=== PATIENT | male | born 1975 | race Caucasian/White ===

== ENCOUNTER 2017-09-01 19:40 | Emergency (ER) | payer OTHER ==
[2017-09-01] MEDS ORDERED: KETOROLAC 30 MG/ML INJ ONE (21:45)
--- NOTE | 2017-09-01 21:46 | ER ---
Nurse's Notes [facility] Name: Power Castillo Age: 42 yrs Sex: Male : 1975 Arrival Date: 09/01/2017 Time: 19:41 Bed 15 Private MD: Diagnosis: Dental caries on smooth surface penetrating into pulp;Acute and subacute allergic otitis media (mucoid) (sanguinous) (serous), left ear Presentation: 09/01 20:05 Presenting complaint: Patient states: Bilateral upper tooth pain with sore throat and aj bilateral ear pain. Transition of care: patient was not received from another setting of care. Onset of symptoms was August 26, 2017. Care prior to arrival: None. 20:05 Method Of Arrival: Ambulatory aj 20:05 Acuity: JULIA 5 aj Triage Assessment: 20:06 General: Appears in no apparent distress. comfortable, Behavior is calm, cooperative, aj appropriate for age. Pain: Complains of pain in right ear, left ear, left aspect of posterior pharynx, right aspect of posterior pharynx, upper right third molar, upper right second molar, upper left second molar and upper left third molar. Pain: Pain currently is 5 out of 10 on a pain scale. EENT: Reports pain in left aspect of posterior pharynx, right aspect of posterior pharynx, upper right third molar, upper right second molar, upper left second molar and upper left third molar. Neuro: Level of Consciousness is awake, alert, obeys commands, Oriented to person, place, time, situation. Respiratory: Airway is patent Respiratory effort is even, unlabored, Respiratory pattern is regular, symmetrical. Derm: Skin is intact, is healthy with good turgor, Skin is pink, warm \T\ dry. normal. Historical: - Allergies: 20:06 No Known Allergies; aj - Home Meds: 20:06 None [Active]; aj - PMHx: 20:06 None; aj - PSHx: 20:06 None; aj - Immunization history:: Adult Immunizations up to date. - Social history:: Smoking status: Patient uses tobacco products, chewing tobacco. Screenin:32 Abuse screen: Denies threats or abuse. Denies injuries from another. Nutritional bs1 screening: No deficits noted. Tuberculosis screening: No symptoms or risk factors identified. Fall Risk None identified. Assessment: 21:00 General: Appears in no apparent distress. uncomfortable, Behavior is calm, cooperative, bs1 appropriate for age. Pain: Complains of pain in mouth and left ear and right ear and upper left third molar and upper left second molar and upper right second molar and upper right third molar and right aspect of posterior pharynx and left aspect of posterior pharynx Pain does not radiate. Pain currently is 5 out of 10 on a pain scale. Quality of pain is described as throbbing. Neuro: Level of Consciousness is awake, alert, obeys commands, Oriented to person, place, time, situation, Appropriate for age [employer] are equal bilaterally Moves all extremities. Gait is steady. Cardiovascular: Denies chest pain, lightheadedness, palpitations, shortness of breath, Heart tones S1 S2 present Capillary refill < 3 seconds Patient's skin is warm and dry. Respiratory: Airway is patent Trachea midline Respiratory effort is even, unlabored, Respiratory pattern is regular, symmetrical, Breath sounds are clear bilaterally. GI: No deficits noted. No signs and/or symptoms were reported involving the gastrointestinal system. : No deficits noted. No signs and/or symptoms were reported regarding the genitourinary system. EENT: Oral mucosa is moist. reports bilateral tooth pain. Throat is reddened Reports pain in left ear and right ear and upper left third molar and upper left second molar and upper right second molar and upper right third molar and right aspect of posterior pharynx and left aspect of posterior pharynx. Derm: No deficits noted. No signs and/or symptoms reported regarding the dermatologic system. Musculoskeletal: Circulation, motion, and sensation intact. Capillary refill < 3 seconds, Range of motion: intact in all extremities. 22:00 Reassessment: Patient appears in no apparent distress at this time. Patient and/or bs1 family updated on plan of care and expected duration. Pain level reassessed. Patient is alert, oriented x 3, equal unlabored respirations, skin warm/dry/pink. Patient states symptoms have improved. Vital Signs: 20:06 BP 183 / 100; Pulse 63; Resp 20; Temp 97.4; Pulse Ox 98% on R/A; Weight 108.86 kg; aj Height 6 ft. 0 in. (182.88 cm); Pain 5/10; 22:00 BP 133 / 92; Pulse 56; Resp 16; Temp 97.7(O); Pulse Ox 100% on R/A; Pain 0/10; bs1 20:06 Body Mass Index 32.55 (108.86 kg, 182.88 cm) ED Course: 19:41 Patient arrived in ED. ds1 20: Triage completed. aj 20: Arm band placed on left wrist. Patient placed in waiting room, Patient notified of wait aj time. 20:22 Roderick Harrison MD is Attending Physician. tw4 20:26 Adela Moore RN is Primary Nurse. bs1 22:33 Patient has correct armband on for positive identification. Bed in low position. Call bs1 light in reach. Side rails up X 1. Pulse ox on. NIBP on. 22:33 No provider procedures requiring assistance completed. Patient did not have IV access bs1 during this emergency room visit. Administered Medications: 21:53 Drug: TORadol 60 mg Route: IM; Site: right deltoid; bs1 22:34 Follow up: Response: No adverse reaction bs1 Outcome: :45 Discharge ordered by . tw4 22:33 Discharged to home ambulatory. bs1 22:33 Condition: stable 22:33 Discharge instructions given to patient, Instructed on discharge instructions, follow up and referral plans. medication usage, Demonstrated understanding of instructions, follow-up care, medications, Prescriptions given X 3. 22:34 Patient left the ED. bs1 Signatures: Yen Chavez, RN Zayda Lawrence ds1 Adela Moore, RN RN bs1 Roderick Harrison MD MD tw4 Corrections: (The following items were deleted from the chart) 34 22:33 Discharge instructions given to patient, Instructed on discharge instructions, bs1 follow up and referral plans. medication usage, Demonstrated understanding of instructions, follow-up care, medications, Prescriptions given X 2, bs1
--- NOTE | 2017-09-01 21:46 | EDPHYS ---
Physician Documentation [facility] Name: Power Castillo Age: 42 yrs Sex: Male : 1975 Arrival Date: 09/01/2017 Time: 19:41 Bed 15 Private MD: ED Physician Roderick Harrison HPI: 09/02 00:23 This 42 yrs old Male presents to ER via Ambulatory with complaints of Mouth tw4 Problem, Sore Throat, Ear Pain. 00:23 The patient presents with pain. The problem is located in the upper right third molar, tw4 upper right second molar, upper right first molar, lower left third molar, lower left second molar and lower left first molar. Onset: The symptoms/episode began/occurred 1 week(s) ago. Duration: The symptoms are continuous. Modifying factors: The symptoms are alleviated by nothing, the symptoms are aggravated by nothing. Associated signs and symptoms: Pertinent positives: inability to eat. Severity of symptoms: At their worst the symptoms were moderate, in the emergency department the symptoms are unchanged. Historical: - Allergies: 09/01 20:06 No Known Allergies; aj - Home Meds: 20:06 None [Active]; aj - PMHx: 20:06 None; aj - PSHx: 20:06 None; aj - Immunization history:: Adult Immunizations up to date. - Social history:: Smoking status: Patient uses tobacco products, chewing tobacco. ROS: 09/02 00:23 Constitutional: Negative for fever, chills, and weight loss. tw4 Cardiovascular: Negative for chest pain, palpitations, and edema, Respiratory: Negative for shortness of breath, cough, wheezing, and pleuritic chest pain, Abdomen/GI: Negative for abdominal pain, nausea, vomiting, diarrhea, and constipation, Back: Negative for injury and pain, MS/Extremity: Negative for injury and deformity. ENT: Positive for dental pain, sore throat. Exam: 00:23 Constitutional: This is a well developed, well nourished patient who is awake, alert, tw4 and in no acute distress. Head/Face: Normocephalic, atraumatic. Chest/axilla: Normal chest wall appearance and motion. Nontender with no deformity. No lesions are appreciated. Cardiovascular: Regular rate and rhythm with a normal S1 and S2. No gallops, murmurs, or rubs. Normal PMI, no JVD. No pulse deficits. Respiratory: Lungs have equal breath sounds bilaterally, clear to auscultation and percussion. No rales, rhonchi or wheezes noted. No increased work of breathing, no retractions or nasal flaring. Abdomen/GI: Soft, non-tender, with normal bowel sounds. No distension or tympany. No guarding or rebound. No evidence of tenderness throughout. Vital Signs: 09/01 20:06 BP 183 / 100; Pulse 63; Resp 20; Temp 97.4; Pulse Ox 98% on R/A; Weight 108.86 kg; aj Height 6 ft. 0 in. (182.88 cm); Pain 5/10; 22:00 BP 133 / 92; Pulse 56; Resp 16; Temp 97.7(O); Pulse Ox 100% on R/A; Pain 0/10; bs1 20:06 Body Mass Index 32.55 (108.86 kg, 182.88 cm) aj MDM: 20:39 Patient medically screened. tw4 09/02 00:25 Differential diagnosis: dental caries, dental abscess, pericoronitis, aphthous ulcers. tw4 Data reviewed: vital signs, nurses notes. Counseling: I had a detailed discussion with the patient and/or guardian regarding: the historical points, exam findings, and any diagnostic results supporting the discharge/admit diagnosis, lab results. Special discussion: I discussed with the patient/guardian in detail that at this point there is no indication for admission to the hospital. It is understood, however, that if the symptoms persist or worsen the patient needs to return immediately for re-evaluation. 09/01 20:39 Order name: Flu; Complete Time: 21:40 tw4 09/01 21:41 Interpretation: Within normal limits. tw4 09/01 20:39 Order name: Strep; Complete Time: 21:40 tw4 09/01 21:41 Interpretation: Within normal limits. 09/01 21:37 Order name: Throat Culture EDMS Administered Medications: 09/01 21:53 Drug: TORadol 60 mg Route: IM; Site: right deltoid; bs1 22:34 Follow up: Response: No adverse reaction bs1 Disposition: 09/01/17 21:45 Discharged to Home. Impression: Dental caries on smooth surface penetrating into pulp, Acute and subacute allergic otitis media (mucoid) (sanguinous) (serous), left ear. - Condition is Stable. - Discharge Instructions: Dental Pain, Otitis Media, Adult, Diet and Dental Disease. - Prescriptions for Clindamycin HCl 300 mg Oral Capsule - take 1 capsule by ORAL route every 6 hours for 10 days; 40 capsule. Ibuprofen 800 mg Oral Tablet - take 1 tablet by ORAL route every 8 hours As needed take with food; 30 tablet. Tylenol- Codeine #3 300-30 mg Oral Tablet - take 2 tablet by ORAL route every 6 hours As needed; 6 tablet. - Medication Reconciliation Form, Thank You Letter, Antibiotic Education, Prescription Opioid Use form. - Follow up: Private Physician; When: As needed; Reason: Recheck today's complaints, Continuance of care, Re-evaluation by your physician. - Problem is new. - Symptoms have improved. Signatures: Dispatcher [employer] Yen Seaman RN RN aj Salazar, Brittany, RN RN bs1 Roderick Harrison MD MD tw4
== END 2017-09-01 22:34 | disposition home or self-care (01) ==
LOC: ER 19:40
DX: K02.63 Dental caries on smooth surface penetrating into pulp (principal); H65.112 Acute and subacute allergic otitis media (mucoid) (sanguinous) (serous), left ear; Z72.0 Tobacco use
CPT/HCPCS: 87070; 87081; 87804; 96372; 99283

== ENCOUNTER 2017-09-02 | Emergency (ER) | payer OTHER ==
--- NOTE | 2017-09-03 00:01 | EDPHYS ---
Physician Documentation [facility] Name: Power Castillo Age: 42 yrs Sex: Male : 1975 Arrival Date: 09/02/2017 Time: 23:01 Bed 15 Private MD: ED Physician Emory Jefferson HPI: 09/02 23:54 This 42 yrs old Male presents to ER via Ambulatory with complaints of gs Toothache. 23:54 The patient presents with pain. The problem is located in the upper left first molar. gs Onset: The symptoms/episode began/occurred 1 week(s) ago, and became persistent. Duration: The symptoms are continuous. Modifying factors: the symptoms are aggravated by chewing. Associated signs and symptoms: Pertinent negatives: dysphagia, fever, redness in area, swelling. Severity of symptoms: At their worst the symptoms were moderate, in the emergency department the symptoms are unchanged. The patient has experienced similar episodes in the past, a few times. Historical: - Allergies: 23:27 No Known Allergies; fc - Home Meds: 23:27 None [Active]; fc - PMHx: 23:27 None; fc - PSHx: 23:27 None; fc - Immunization history:: Last tetanus immunization: unknown. - Social history:: Smoking status: Patient uses tobacco products, chewing tobacco, Patient/guardian denies using alcohol. ROS: 23:54 All other systems are negative. gs Exam: 23:54 Head/Face: Normocephalic, atraumatic. Eyes: Pupils equal round and reactive to light, gs extra-ocular motions intact. Lids and lashes normal. Conjunctiva and sclera are non-icteric and not injected. Cornea within normal limits. Periorbital areas with no swelling, redness, or edema. Neck: Trachea midline, no thyromegaly or masses palpated, and no cervical lymphadenopathy. Supple, full range of motion without nuchal rigidity, or vertebral point tenderness. No Meningismus. Chest/axilla: Normal chest wall appearance and motion. Nontender with no deformity. No lesions are appreciated. Cardiovascular: Regular rate and rhythm with a normal S1 and S2. No gallops, murmurs, or rubs. Normal PMI, no JVD. No pulse deficits. Respiratory: Lungs have equal breath sounds bilaterally, clear to auscultation and percussion. No rales, rhonchi or wheezes noted. No increased work of breathing, no retractions or nasal flaring. 23:54 Constitutional: The patient appears alert, awake. 23:54 ENT: Dental exam: abscess, is not appreciated, cellulitis, is not appreciated, dental caries, that is mild, specifically in the upper left central incisor (#9) and upper left first molar (#14), gum swelling, not appreciated, malocclusion, is not appreciated, missing teeth, specifically the upper right third molar (#1), upper right second molar (#2), upper left second molar (#15), upper left third molar (#16), lower left third molar (#17), lower left second molar (#18), lower right second molar (#31) and lower right third molar (#32). Vital Signs: 23:27 Weight 108.86 kg (R); Height 6 ft. 0 in. (182.88 cm) (R); Pain 10/10; fc 23:28 BP 149 / 98; Pulse 54; Resp 18; Temp 98.5(O); Pulse Ox 98% on R/A; fc 23:45 BP 150 / 85; Pulse 50; Resp 18; Temp 97.9; Pulse Ox 96% on R/A; wh 23:27 Body Mass Index 32.55 (108.86 kg, 182.88 cm) fc MDM: 23:45 Patient medically screened. gs 23:54 Differential diagnosis: dental caries, gingivitis. Data reviewed: vital signs, nurses gs notes. ED course: informed pt could not give anything stronger than the t3 he got yesterday, injection would not last long enough and did not have abscess or cellulitis or fractured teeth encouraged going to dentist. 09/03 00:00 Counseling: I had a detailed discussion with the patient and/or guardian regarding: the gs presence of at least one elevated blood pressure reading (>120/80) during this emergency department visit. Special discussion: I have referred the patient to see his PCP for further evaluation of high blood pressure. ED course: pt got angry and left. Administered Medications: No medications were administered Disposition: 09/03/17 00:00 Discharged to Home. Impression: Dental caries. - Condition is Stable. - Discharge Instructions: Dental Pain, Managing Your High Blood Pressure. - Medication Reconciliation Form, Thank You Letter, Antibiotic Education, Prescription Opioid Use form. - Follow up: Private Physician; When: 2 - 3 days; Reason: Re-evaluation by your physician. Signatures: Emili Benoit RN RN fc Habalo, Winsy wh Starr, Gregory, MD MD
--- NOTE | 2017-09-03 00:01 | ER ---
Nurse's Notes [facility] Name: Power Castillo Age: 42 yrs Sex: Male : 1975 Arrival Date: 09/02/2017 Time: 23:01 Bed 15 Private MD: Diagnosis: Dental caries Presentation: 09/02 23:24 Presenting complaint: Patient states: that he is having tooth pain. Was here last night fc and seen by Dr Harrison. Given antibiotics and Tylenol #3. Has taken them as ordered but has gotten no relief. Transition of care: patient was not received from another setting of care. Onset of symptoms was July 2017. Care prior to arrival: taking his antibiotics and pain medications as ordered. 23:24 Method Of Arrival: Ambulatory fc 23:24 Acuity: JULIA 4 Historical: - Allergies: 23:27 No Known Allergies; fc - Home Meds: 23:27 None [Active]; fc - PMHx: 23:27 None; fc - PSHx: 23:27 None; fc - Immunization history:: Last tetanus immunization: unknown. - Social history:: Smoking status: Patient uses tobacco products, chewing tobacco, Patient/guardian denies using alcohol. Screenin:45 Abuse screen: Denies threats or abuse. Denies injuries from another. Nutritional wh screening: No deficits noted. Tuberculosis screening: No symptoms or risk factors identified. Fall Risk None identified. Assessment: 23:42 General: Appears in no apparent distress. uncomfortable, Behavior is calm, cooperative, wh appropriate for age. Pain: Complains of pain in toothache Pain radiates to upper jaw Pain currently is 10 out of 10 on a pain scale. Quality of pain is described as aching, pulsating, Pain began 1 day ago. Neuro: Level of Consciousness is awake, alert, obeys commands, Oriented to person, place, time, situation. Cardiovascular: Denies chest pain, Capillary refill < 3 seconds Patient's skin is warm and dry. Respiratory: Airway is patent Respiratory effort is even, unlabored, Respiratory pattern is regular, symmetrical. GI: Abdomen is flat, non-distended. : No signs and/or symptoms were reported regarding the genitourinary system. EENT: cavities. Reports toothache that is severe. Derm: Skin is intact, is healthy with good turgor, Skin is pink, warm \T\ dry. normal. Musculoskeletal: Range of motion: intact in all extremities. Vital Signs: 23:27 Weight 108.86 kg (R); Height 6 ft. 0 in. (182.88 cm) (R); Pain 10/10; 23:28 BP 149 / 98; Pulse 54; Resp 18; Temp 98.5(O); Pulse Ox 98% on R/A; 23:45 BP 150 / 85; Pulse 50; Resp 18; Temp 97.9; Pulse Ox 96% on R/A; wh 23:27 Body Mass Index 32.55 (108.86 kg, 182.88 cm) ED Course: 23:01 Patient arrived in ED. am2 23:26 Triage completed. 23:28 Arm band placed on Patient placed in an exam room, on a stretcher. 23:31 Emory Jefferson MD is Attending Physician. 23:32 Antony Trevizo is Primary Nurse. 23:45 Patient has correct armband on for positive identification. Bed in low position. Call light in reach. Side rails up X 1. Pulse ox on. NIBP on. 04 00:02 No provider procedures requiring assistance completed. Patient did not have IV access during this emergency room visit. Administered Medications: No medications were administered Outcome: 00:00 Discharge ordered by . 00:02 Discharged to home ambulatory. 00:02 Condition: good 00:02 Discharge instructions given to Pt left before signing DC instructions 00:03 Patient left the ED. Signatures: Emili Benoit RN RN Yen Patel 2 Antony Trevizo Emory Jefferson MD MD
== END 2017-09-03 00:03 | disposition home or self-care (01) ==
CPT/HCPCS: 99283

== ENCOUNTER 2018-01-18 14:32 | Emergency (ER) | payer OTHER ==
--- NOTE | 2018-01-18 16:11 | ER ---
Nurse's Notes [facility] Name: Power Castillo Age: 42 yrs Sex: Male : 1975 Arrival Date: 01/18/2018 Time: 14:34 Bed 11 Private MD: None, None Diagnosis: Acute bronchitis Presentation: 01/18 15:05 Presenting complaint: Patient states: has been feeling cruddy for 11 days. Coughing up dm5 yellow/green mucus. Girlfriend diagnosed with viral infection a few days ago. Transition of care: patient was not received from another setting of care. Onset of symptoms was January 06, 2018. Risk Assessment: Do you want to hurt yourself or someone else? Patient reports no desire to harm self or others. Initial Sepsis Screen: Does the patient meet any 2 criteria? No. Patient's initial sepsis screen is negative. Does the patient have a suspected source of infection? No. Patient's initial sepsis screen is negative. Care prior to arrival: None. 15:05 Method Of Arrival: Ambulatory dm5 15:05 Acuity: JULIA 4 dm5 Triage Assessment: 15:09 General: Appears in no apparent distress. Behavior is calm, cooperative. Pain: dm5 Complains of pain in chest Pain currently is 6 out of 10 on a pain scale. Neuro: Level of Consciousness is awake, alert, obeys commands, Oriented to person, place, time. Respiratory: Reports cough that is Airway is patent Respiratory effort is even, unlabored, relaxed, Respiratory pattern is regular, symmetrical. Derm: Skin is pink, warm \T\ dry. Historical: - Allergies: 15:09 reaction to unknown medication either penicillin or clindamycin; dm5 - PSHx: 15:09 None; dm5 Vital Signs: 15:09 BP 144 / 91; Pulse 56; Resp 20; Temp 97.9; Pulse Ox 97% on R/A; Weight 113.4 kg (R); dm5 Height 6 ft. 0 in. (182.88 cm); Pain 6/10; 15:09 Body Mass Index 33.91 (113.40 kg, 182.88 cm) dm5 ED Course: 14:34 Patient arrived in ED. sb2 14:34 None, None is Private Physician. sb2 15:07 Triage completed. dm5 15:09 Arm band placed on right wrist. Patient placed in waiting room. dm5 15:51 Loc Kim PA is PHCP. jm 15:51 Andrew Negrete MD is Attending Physician. [facility] 16:32 Sebastian Benton, RN is Primary Nurse. la1 Administered Medications: No medications were administered Outcome: 16:11 Discharge ordered by . [facility] 16:32 Patient left the ED. la1 Signatures: Robina Atkins, RN RN Loc Ramos PA PA [facility] Sebastian Benton RN RN la1 Radha Davidson sb2
--- NOTE | 2018-01-18 16:12 | EDPHYS ---
Physician Documentation [facility] Name: Power Castillo Age: 42 yrs Sex: Male : 1975 Arrival Date: 01/18/2018 Time: 14:34 Bed 11 Private MD: None, None ED Physician Andrew Negrete HPI: 01/18 15:54 This 42 yrs old Male presents to ER via Ambulatory with complaints of Flu [facility] Symptoms. 15:54 The patient or guardian reports cough. Onset: The symptoms/episode began/occurred jmm gradually, 1.5 week(s) ago. Associated signs and symptoms: Pertinent positives: sore throat, Pertinent negatives: nausea, vomiting. This is a 42 year old male that presents to the ED with cough, sore throat beginning approx 11 days ago. Patient states his girlfriend recently developed similar symptoms. Patient also complains of a generalized rash. Denies fever, Denies SOB. Historical: - Allergies: 15:09 reaction to unknown medication either penicillin or clindamycin; dm5 - PSHx: 15:09 None; dm5 ROS: 16:24 Eyes: Negative for injury, pain, redness, and discharge. jmm 16:24 Cardiovascular: Negative for chest pain, palpitations, and edema. 16:24 Abdomen/GI: Negative for abdominal pain, nausea, vomiting, diarrhea, and constipation, Back: Negative for injury and pain, MS/Extremity: Negative for injury and deformity. 16:24 Constitutional: Positive for malaise. 16:24 ENT: Positive for sore throat. 16:24 Respiratory: Positive for cough, Negative for shortness of breath. 16:24 All other systems are negative. Exam: 16:24 Constitutional: The patient appears in no acute distress, alert, awake. jmm 16:24 Head/Face: atraumatic. Eyes: EOMI, no conjunctival erythema appreciated Chest/axilla: jm Normal chest wall appearance and motion. Cardiovascular: Regular rate and rhythm. No edema appreciated 16:24 ENT: TM's: are normal, Posterior pharynx: erythema, that is mild. jmm 16:24 Neck: ROM/movement: is normal. 16:24 Cardiovascular: Rate: normal, Rhythm: regular. 16:24 Respiratory: the patient does not display signs of respiratory distress, Respirations: normal, Breath sounds: are clear throughout. 16:24 Abdomen/GI: Inspection: abdomen appears normal. 16:24 Back: ROM is normal. 16:24 Skin: and is diffusely located, Consistent with tinea versicolor. 16:24 Neuro: Orientation: is normal, Mentation: is normal, Memory: is normal. 16:24 Psych: Behavior/mood is pleasant, cooperative. Vital Signs: 15:09 BP 144 / 91; Pulse 56; Resp 20; Temp 97.9; Pulse Ox 97% on R/A; Weight 113.4 kg (R); dm5 Height 6 ft. 0 in. (182.88 cm); Pain 6/10; 15:09 Body Mass Index 33.91 (113.40 kg, 182.88 cm) dm5 MDM: 15:54 Patient medically screened. [facility] 16:10 Data reviewed: vital signs, nurses notes. Counseling: I had a detailed discussion with binta the patient and/or guardian regarding: the historical points, exam findings, and any diagnostic results supporting the discharge/admit diagnosis, the need for outpatient follow up, to return to the emergency department if symptoms worsen or persist or if there are any questions or concerns that arise at home. 16:10 ED course: Patient prescribed oral antibiotics. patient states he has an appointment binta scheduled with dermatology to evaluate his rash. patient given return precautions. patient understood and agrees with the plan of care. . Administered Medications: No medications were administered Disposition: 01/19 06:39 Co-signature as Attending Physician, Andrew Negrete MD I agree with the assessment and [facility] plan of care. Disposition: 01/18/18 16:11 Discharged to Home. Impression: Acute bronchitis. - Condition is Stable. - Discharge Instructions: Acute Bronchitis, Adult. - Prescriptions for Zithromax Z- Star 250 mg Oral Tablet - take 1 tablet by ORAL route as directed for 5 days Day 1 - take two (2) tablets one time. Day 2, 3, 4 , 5 take one (1) tablet once daily.; 6 tablet. Albuterol Sulfate 90 mcg/actuation - inhale 1-2 puff by INHALATION route every 4-6 hours; 1 Inhaler. - Medication Reconciliation Form, Thank You Letter, Antibiotic Education, Prescription Opioid Use form. - Follow up: Private Physician; When: 2 - 3 days; Reason: Recheck today's complaints, Continuance of care, Re-evaluation by your physician. Signatures: Dispatcher [employer] [facility] Robina Atkins, RN RN dm5 Andrew Negrete MD MD cha Mickail, Joel, PA PA Sebastian Pleitez RN RN la1 Corrections: (The following items were deleted from the chart) 01/18 16:12 15:53 Chest Pa And Lat (2 Views)+RAD.RAD.BRZ ordered. [facility] 16:32 16:11 01/18/2018 16:11 Discharged to Home. Impression: Acute bronchitis. Condition is la1 Stable. Forms are Medication Reconciliation Form, Thank You Letter, Antibiotic Education, Prescription Opioid Use. Follow up: Private Physician; When: 2 - 3 days; Reason: Recheck today's complaints, Continuance of care, Re-evaluation by your physician. binta
== END 2018-01-18 16:32 | disposition home or self-care (01) ==
LOC: ER 14:32
DX: J20.9 Acute bronchitis, unspecified (principal)
CPT/HCPCS: 99281

== ENCOUNTER 2018-05-01 09:50 | Emergency (ER) | payer OTHER ==
[2018-05-01] MEDS ORDERED: LIDOCAINE 1% MPF 5 ML VIAL ONE (10:29)
[2018-05-01] MEDS ORDERED: LIDOCAINE 1% MPF 30 ML VIAL ONE (10:31)
[2018-05-01] MEDS ORDERED: DOXYCYCLINE 100 MG CAP PO ONE (10:34)
--- NOTE | 2018-05-01 10:35 | ER ---
Nurse's Notes [facility] Name: Power Castillo Age: 42 yrs Sex: Male : 1975 Arrival Date: 05/01/2018 Time: 09:54 Bed 7 Private MD: None, None Diagnosis: Puncture wound with foreign body, right foot Presentation: 05/01 10:06 Presenting complaint: Patient states: [place] in medial aspect of right foot, happened jl7 45 minutes ago. Transition of care: patient was not received from another setting of care. Onset of symptoms was May 01, 2018. Risk Assessment: Do you want to hurt yourself or someone else? Patient reports no desire to harm self or others. Initial Sepsis Screen: Does the patient meet any 2 criteria? No. Patient's initial sepsis screen is negative. Does the patient have a suspected source of infection? No. Patient's initial sepsis screen is negative. Care prior to arrival: None. 10:06 Method Of Arrival: Ambulatory jl7 10:06 Acuity: JULIA 4 jl7 Triage Assessment: 10:09 General: Appears in no apparent distress. comfortable, Behavior is calm, cooperative, jl7 appropriate for age. Pain: Complains of pain in medial aspect of right toes Pain currently is 4 out of 10 on a pain scale. EENT: No signs and/or symptoms were reported regarding the EENT system. Neuro: Level of Consciousness is awake, alert, obeys commands, Oriented to person, place, time, situation. Cardiovascular: Patient's skin is warm and dry. Respiratory: Airway is patent Respiratory effort is even, unlabored, Respiratory pattern is regular, symmetrical. Derm: Skin is pink, warm \T\ dry. Injury Description: Foreign body is located medial aspect of right toes is fishhook was sustained 30-60 minutes ago. Historical: - Allergies: 10:09 reaction to unknown medication either penicillin or clindamycin; jl7 - Home Meds: 10:09 None [Active]; jl7 - PMHx: 10:09 None; jl7 - PSHx: 10:09 None; jl7 - Immunization history:: Adult Immunizations up to date, Last tetanus immunization: March 2018. - Social history:: Smoking status: Patient uses tobacco products, smokes one pack cigarettes per day. - Ebola Screening: : No symptoms or risks identified at this time. Screenin:36 Abuse screen: Denies threats or abuse. Denies injuries from another. Nutritional jl7 screening: No deficits noted. Tuberculosis screening: No symptoms or risk factors identified. Fall Risk None identified. Assessment: 10:36 General: See triage assessment. jl7 Vital Signs: 10:09 BP 132 / 100; Pulse 66; Resp 16 S; Temp 99(O); Pulse Ox 96% on R/A; Weight 108.86 kg jl7 (R); Height 6 ft. 0 in. (182.88 cm) (R); Pain 4/10; 10:46 BP 128 / 92; Pulse 65; Resp 16 S; Pulse Ox 99% on R/A; Pain 2/10; jl7 10:09 Body Mass Index 32.55 (108.86 kg, 182.88 cm) jl7 ED Course: 09:54 Patient arrived in ED. mr 09:54 None, None is Private Physician. mr 09:59 [facility]bec[facility]C [facility] snw 09:59 Gianni Friend MD is Attending Physician. snw 10:06 Javed Marcial, MARLON is Primary Nurse. jl7 10:08 Triage completed. jl7 10:09 Arm band placed on right wrist. jl7 10:10 Patient has correct armband on for positive identification. Bed in low position. Call jl7 light in reach. Side rails up X 1. Pulse ox on. NIBP on. 10:30 Assist provider with foreign body removal of a fish hook from right foot using jl7 alligator clamps, Set up for procedure. Performed by Rebeca SIMMONS Dressed with 4X4s, Patient tolerated well. Patient did not have IV access during this emergency room visit. Administered Medications: 10:30 Drug: Lidocaine (1 %) 5 mg Route: Infiltration; jl7 10:47 Follow up: Response: No adverse reaction jl7 10:30 Drug: Doxycycline 100 mg Route: PO; jl7 10:47 Follow up: Response: No adverse reaction jl7 Outcome: 10:34 Discharge ordered by . snw 10:48 Discharged to home ambulatory. jl7 10:48 Condition: stable 10:48 Discharge instructions given to patient, Instructed on discharge instructions, follow up and referral plans. medication usage, safety practices, Demonstrated understanding of instructions, follow-up care, medications, Prescriptions given X 2. 10:49 Patient left the ED. jl7 Signatures: Rebeca Jones, [employer] OPERATOR-Cathy Simpson Jahala, RN RN jl7
--- NOTE | 2018-05-01 10:35 | EDPHYS ---
Physician Documentation [facility] Name: Power Castillo Age: 42 yrs Sex: Male : 1975 Arrival Date: 05/01/2018 Time: 09:54 Bed 7 Private MD: None, None ED Physician Gianni Friend HPI: 05/01 10:43 This 42 yrs old Male presents to ER via Ambulatory with complaints of Fish snw hook in toe. 10:43 Onset: The symptoms/episode began/occurred suddenly, just prior to arrival. Associated snw signs and symptoms: The patient has no apparent associated signs or symptoms. Modifying factors: The patient symptoms are alleviated by nothing, the patient symptoms are aggravated by movement. The patient has not experienced similar symptoms in the past. It is unknown whether or not the patient has recently seen a physician. 10:43 Pt was home in his driveway and got tangled in the fishing line, pulled hook into foot snw inadvertantly. Historical: - Allergies: 10:09 reaction to unknown medication either penicillin or clindamycin; jl7 - Home Meds: 10:09 None [Active]; jl7 - PMHx: 10:09 None; jl7 - PSHx: 10:09 None; jl7 - Immunization history:: Adult Immunizations up to date, Last tetanus immunization: March 2018. - Social history:: Smoking status: Patient uses tobacco products, smokes one pack cigarettes per day. - Ebola Screening: : No symptoms or risks identified at this time. ROS: 10:42 Constitutional: Negative for fever, chills, and weight loss, Eyes: Negative for injury, snw pain, redness, and discharge, ENT: Negative for injury, pain, and discharge, Neck: Negative for injury, pain, and swelling, Cardiovascular: Negative for chest pain, palpitations, and edema, Respiratory: Negative for shortness of breath, cough, wheezing, and pleuritic chest pain, Abdomen/GI: Negative for abdominal pain, nausea, vomiting, diarrhea, and constipation, Back: Negative for injury and pain, : Negative for injury, bleeding, discharge, and swelling, Skin: Negative for injury, rash, and discoloration, Neuro: Negative for headache, weakness, numbness, tingling, and seizure, Psych: Negative for depression, anxiety, suicide ideation, homicidal ideation, and hallucinations. 10:42 MS/extremity: Positive for puncture, fishhook in right foot. Exam: 10:37 Constitutional: This is a well developed, well nourished patient who is awake, alert, snw and in no acute distress. Head/Face: Normocephalic, atraumatic. Eyes: Pupils equal round and reactive to light, extra-ocular motions intact. Lids and lashes normal. Conjunctiva and sclera are non-icteric and not injected. Cornea within normal limits. Periorbital areas with no swelling, redness, or edema. ENT: Nares patent. No nasal discharge, no septal abnormalities noted. Tympanic membranes are normal and external auditory canals are clear. Oropharynx with no redness, swelling, or masses, exudates, or evidence of obstruction, uvula midline. Mucous membranes moist. Neck: Trachea midline, no thyromegaly or masses palpated, and no cervical lymphadenopathy. Supple, full range of motion without nuchal rigidity, or vertebral point tenderness. No Meningismus. Chest/axilla: Normal chest wall appearance and motion. Nontender with no deformity. No lesions are appreciated. Cardiovascular: Regular rate and rhythm with a normal S1 and S2. No gallops, murmurs, or rubs. Normal PMI, no JVD. No pulse deficits. Respiratory: Lungs have equal breath sounds bilaterally, clear to auscultation and percussion. No rales, rhonchi or wheezes noted. No increased work of breathing, no retractions or nasal flaring. Abdomen/GI: Soft, non-tender, with normal bowel sounds. No distension or tympany. No guarding or rebound. No evidence of tenderness throughout. Back: No spinal tenderness. No costovertebral tenderness. Full range of motion. MS/ Extremity: Pulses equal, no cyanosis. Neurovascular intact. Full, normal range of motion. Neuro: Awake and alert, GCS 15, oriented to person, place, time, and situation. Cranial nerves II-XII grossly intact. Motor strength 5/5 in all extremities. Sensory grossly intact. Cerebellar exam normal. Normal gait. Psych: Awake, alert, with orientation to person, place and time. Behavior, mood, and affect are within normal limits. 10:37 Skin: Appearance: normal except for affected area, injury, puncture(s), that are superficial, of the medial aspect of right toes. Vital Signs: 10:09 BP 132 / 100; Pulse 66; Resp 16 S; Temp 99(O); Pulse Ox 96% on R/A; Weight 108.86 kg jl7 (R); Height 6 ft. 0 in. (182.88 cm) (R); Pain 4/10; 10:46 BP 128 / 92; Pulse 65; Resp 16 S; Pulse Ox 99% on R/A; Pain 2/10; jl7 10:09 Body Mass Index 32.55 (108.86 kg, 182.88 cm) jl7 MDM: 10:18 Patient medically screened. snw 10:41 Data reviewed: vital signs, nurses notes. Data interpreted: Pulse oximetry: on room air snw is 96 %. Interpretation: acceptable. Counseling: I had a detailed discussion with the patient and/or guardian regarding: the historical points, exam findings, and any diagnostic results supporting the discharge/admit diagnosis, the presence of at least one elevated blood pressure reading (>120/80) during this emergency department visit, the need for outpatient follow up, to return to the emergency department if symptoms worsen or persist or if there are any questions or concerns that arise at home. Special discussion: I have referred the patient to see his PCP for further evaluation of high blood pressure. Based on the history and exam findings, there is no indication for further emergent testing or inpatient evaluation. I discussed with the patient/guardian the need to see the primary care provider for further evaluation of the symptoms. Administered Medications: 10:30 Drug: Lidocaine (1 %) 5 mg Route: Infiltration; 7 10:47 Follow up: Response: No adverse reaction 7 10:30 Drug: Doxycycline 100 mg Route: PO; jl7 10:47 Follow up: Response: No adverse reaction jl7 Disposition: 12:30 Co-signature as Attending Physician, Gianni Friend MD I agree with the assessment and kdr plan of care. Disposition: 05/01/18 10:34 Discharged to Home. Impression: Puncture wound with foreign body, right foot. - Condition is Stable. - Discharge Instructions: Hypertension, Puncture Wound, Foreign Body. - Prescriptions for Tylenol- Codeine #3 300-30 mg Oral Tablet - take 1 tablet by ORAL route every 6 hours As needed; 6 tablet. Doxycycline Hyclate 100 mg Oral Tablet - take 1 tablet by ORAL route every 12 hours; 20 tablet. - Medication Reconciliation Form, Thank You Letter, Antibiotic Education, Prescription Opioid Use form. - Follow up: Private Physician; When: 2 - 3 days; Reason: Recheck today's complaints, Continuance of care, Re-evaluation by your physician. Follow up: Emergency Department; When: As needed; Reason: Worsening of condition. Signatures: Gianni Friend MD MD [facility] Rebeca Jones, CHECK PILOT-C CHECK PILOT-Csnw Javed Marcial RN RN jl7 Corrections: (The following items were deleted from the chart) 10:49 10:34 05/01/2018 10:34 Discharged to Home. Impression: Puncture wound with foreign jl7 body, right foot. Condition is Stable. Forms are Medication Reconciliation Form, Thank You Letter, Antibiotic Education, Prescription Opioid Use. Follow up: Private Physician; When: 2 - 3 days; Reason: Recheck today's complaints, Continuance of care, Re-evaluation by your physician. Follow up: Emergency Department; When: As needed; Reason: Worsening of condition. snw
== END 2018-05-01 10:49 | disposition home or self-care (01) ==
LOC: ER 09:50
DX: S91.341A Puncture wound with foreign body, right foot, initial encounter (principal); W22.8XXA Striking against or struck by other objects, initial encounter; Y93.89 Activity, other specified; Y92.008 Other place in unspecified non-institutional (private) residence as the place of occurrence of the external cause; F17.210 Nicotine dependence, cigarettes, uncomplicated
CPT/HCPCS: 99284

== ENCOUNTER 2018-08-04 17:33 | Emergency (ER) | payer OTHER ==
[2018-08-04] MEDS ORDERED: CEFTRIAXONE/SWI 1gm 1 GM/10 ML SYR ONE (19:18)
[2018-08-04] MEDS ORDERED: NA CHLORIDE 0.9% 1,000 ML ONE (19:18)
[2018-08-04 19:19] LABS: Absolute Lymphocytes (CBC) 2.5 K/uL (0.7-4.9); Absolute Monocytes 0.9 K/uL (0.1-1.3); Absolute Neutrophil 5.6 K/uL (1.8-8.0); Basophils % 0.6 % (0-1.3); Eosinophils % 0.9 % (0-4.4); Hematocrit 51.1 % (39.6-49.0); Lymphocytes % 27.3 % (15.3-44.8); MPV 9.1 fL (7.6-11.3); Monocytes % 9.5 % (3.3-12.3); RBC Red Blood Cell Count 5.43 M/uL (4.33-5.43)
[2018-08-04 19:39] LABS: BUN Blood Urea Nitrogen 10 mg/dL (7-18); Bicarbonate 28 mmol/L (21-32); Creatine Phosphokinase 187 U/L (39-308); Glucose Level 100 mg/dL (74-106); Potassium 4.1 mmol/L (3.5-5.1); Sodium Level 140 mmol/L (136-145); Troponin (Emerg Dept Use Only) < 0.02 ng/mL (0.0-0.045)
--- NOTE | 2018-08-04 20:34 | EDPHYS ---
Physician Documentation [facility] Name: Power Castillo Age: 43 yrs Sex: Male : 1975 Arrival Date: 08/04/2018 Time: 17:35 Bed 27 Private MD: ED Physician Hussein Lucio HPI: 08/04 19:10 This 43 yrs old Male presents to ER via Ambulatory with complaints of snw Headache, Palpitations. 19:10 The patient complains of pain to the generalized headache and right arm pain, snw palpitations. The patient describes the headache as pounding. Onset: The symptoms/episode began/occurred today. Associated signs and symptoms: Pertinent positives: right arm pain. Severity of symptoms: At its worst the pain was moderate, earlier today. Headache History: Denies prior headaches. the symptoms are aggravated by movement. It is unknown whether or not the patient has had similar symptoms in the past. It is unknown whether or not the patient has recently seen a physician. Historical: - Allergies: 17:52 reaction to unknown medication either penicillin or clindamycin; hb - Home Meds: 17:52 meloxicam 15 mg oral tab 1 tab once daily [Active]; cetirizine oral oral [Active]; hb Flonase 50 mcg/actuation Nasal spsn [Active]; - PMHx: 17:52 None; hb - PSHx: 17:52 None; hb - Immunization history:: Adult Immunizations up to date. - Social history:: Smoking status: Patient uses tobacco products, smokes one pack cigarettes per day. - Ebola Screening: : No symptoms or risks identified at this time. ROS: 19:09 Eyes: Negative for injury, pain, redness, and discharge, ENT: Negative for injury, snw pain, and discharge, Neck: Negative for injury, pain, and swelling. 19:09 Respiratory: Negative for shortness of breath, cough, wheezing, and pleuritic chest pain, Abdomen/GI: Negative for abdominal pain, nausea, vomiting, diarrhea, and constipation, Back: Negative for injury and pain, : Negative for injury, bleeding, discharge, and swelling. 19:09 Skin: Negative for injury, rash, and discoloration, Neuro: Negative for headache, weakness, numbness, tingling, and seizure. 19:09 Constitutional: Positive for body aches, malaise, poor PO intake. 19:09 Cardiovascular: Positive for palpitations. 19:09 MS/extremity: Positive for pain, of the right arm. 19:09 Psych: Positive for anxiety, pt states he did two lines of something last pm s/p not doing drugs x 7 years. Exam: 19:06 Head/Face: Normocephalic, atraumatic. Eyes: Pupils equal round and reactive to light, snw extra-ocular motions intact. Lids and lashes normal. Conjunctiva and sclera are non-icteric and not injected. Cornea within normal limits. Periorbital areas with no swelling, redness, or edema. 19:06 Neck: Trachea midline, no thyromegaly or masses palpated, and no cervical lymphadenopathy. Supple, full range of motion without nuchal rigidity, or vertebral point tenderness. No Meningismus. Chest/axilla: Normal chest wall appearance and motion. Nontender with no deformity. No lesions are appreciated. 19:06 Respiratory: Lungs have equal breath sounds bilaterally, clear to auscultation and percussion. No rales, rhonchi or wheezes noted. No increased work of breathing, no retractions or nasal flaring. Abdomen/GI: Soft, non-tender, with normal bowel sounds. No distension or tympany. No guarding or rebound. No evidence of tenderness throughout. Back: No spinal tenderness. No costovertebral tenderness. Full range of motion. Skin: Warm, dry with normal turgor. Normal color with no rashes, no lesions, and no evidence of cellulitis. Neuro: Awake and alert, GCS 15, oriented to person, place, time, and situation. Cranial nerves II-XII grossly intact. Motor strength 5/5 in all extremities. Sensory grossly intact. Cerebellar exam normal. Normal gait. Psych: Awake, alert, with orientation to person, place and time. Behavior, mood, and affect are within normal limits. 19:06 Constitutional: The patient appears alert, awake, anxious, restless. 19:06 ENT: Ear canal(s): are normal, TM's: erythema, that is moderate, bilaterally, Nose: is normal, Mouth: is normal, Posterior pharynx: is normal, Voice: is normal. 19:06 Cardiovascular: Rate: tachycardic, Rhythm: regular, Heart sounds: normal. 19:06 Musculoskeletal/extremity: Extremities: grossly normal except: noted in the right arm: tenderness, ROM: no acute changes, Circulation is intact in all extremities. Sensation intact. Vital Signs: 17:50 BP 180 / 107; Pulse 116; Resp 18; Temp 98.1; Pulse Ox 100% on R/A; Weight 108.86 kg; hb Height 6 ft. (182.88 cm); Pain 7/10; 18:40 BP 163 / 100; Pulse 92; Resp 22; Pulse Ox 100% on R/A; Pain 7/10; em 20:57 BP 154 / 100; Pulse 90; Resp 18; Pulse Ox 100% on R/A; Pain 0/10; mg2 17:50 Body Mass Index 32.55 (108.86 kg, 182.88 cm) hb MDM: 18:47 Patient medically screened. snw 20:34 Data reviewed: vital signs, nurses notes. Data interpreted: Pulse oximetry: on room air snw is 100 %. Interpretation: normal. Counseling: I had a detailed discussion with the patient and/or guardian regarding: the historical points, exam findings, and any diagnostic results supporting the discharge/admit diagnosis, the presence of at least one elevated blood pressure reading (>120/80) during this emergency department visit, lab results, radiology results, the need for outpatient follow up, for definitive care, to return to the emergency department if symptoms worsen or persist or if there are any questions or concerns that arise at home. Special discussion: I have referred the patient to see his PCP for further evaluation of high blood pressure. Based on the history and exam findings, there is no indication for further emergent testing or inpatient evaluation. I discussed with the patient/guardian the need to see the primary care provider for further evaluation of the symptoms. 08/04 18:22 Order name: Flu; Complete Time: 19:54 snw 08/04 18:22 Order name: Strep; Complete Time: 19:54 snw 08/04 18:32 Order name: UDS snw 08/04 18:54 Order name: CBC with Diff; Complete Time: 19:54 snw 08/04 18:54 Order name: Chem 7; Complete Time: 19:54 snw 08/04 18:54 Order name: CPK; Complete Time: 19:54 snw 08/04 18:54 Order name: Troponin (emerg Dept Use Only); Complete Time: 19:54 snw 08/04 19:32 Order name: Throat Culture EDMS Administered Medications: 19:11 Drug: NS 0.9% 1000 ml Route: IV; Rate: 1 bolus; Site: left antecubital; em 20:39 Follow up: Response: No adverse reaction; IV Status: Completed infusion mg2 19:20 Drug: Rocephin - (cefTRIAXone) 1 grams Route: IVPB; Infused Over: 10 mins; Site: left ls4 antecubital; 20:39 Follow up: Response: No adverse reaction; IV Status: Completed infusion mg2 Disposition: 08/04/18 20:33 Discharged to Home. Impression: Drug abuse counseling and surveillance, Pain in right arm, Palpitations, Volume depletion. - Condition is Stable. - Discharge Instructions: Dehydration, Adult, Hypertension, Palpitations, Rehydration, Adult, What You Need To Know About Illegal Drug Use and Dependence, Youth. - Medication Reconciliation Form, Thank You Letter, Antibiotic Education, Prescription Opioid Use form. - Follow up: Emergency Department; When: As needed; Reason: Worsening of condition. Follow up: Private Physician; When: 2 - 3 days; Reason: Recheck today's complaints, Continuance of care, Re-evaluation by your physician. Addendum: 08/08/2018 07:36 Co-signature as Attending Physician, Hussein Lucio MD. r n Signatures: Dispatcher [employer] EDGA KarenRebeca dawson, DYNAMO REPAIRER-C DYNAMO REPAIRER-Csnw Tapan Escalante, SKATE SHOP ATTENDANT SKATE SHOP ATTENDANT Hussein Lucio MD MD rn Baxter, Heather, RN RN Francisco Amezquita RN RN mg2 Corine Hoff RN RN ls4 Corrections: (The following items were deleted from the chart) 08/04 20:36 20:33 08/04/2018 20:33 Discharged to Home. Impression: Drug abuse counseling and snw surveillance. Condition is Stable. Forms are Medication Reconciliation Form, Thank You Letter, Antibiotic Education, Prescription Opioid Use. Follow up: Emergency Department; When: As needed; Reason: Worsening of condition. Follow up: Private Physician; When: 2 - 3 days; Reason: Recheck today's complaints, Continuance of care, Re-evaluation by your physician. snw 21:05 20:36 08/04/2018 20:33 Discharged to Home. Impression: Drug abuse counseling and mg2 surveillance; Pain in right arm; Palpitations; Volume depletion. Condition is Stable. Forms are Medication Reconciliation Form, Thank You Letter, Antibiotic Education, Prescription Opioid Use. Follow up: Emergency Department; When: As needed; Reason: Worsening of condition. Follow up: Private Physician; When: 2 - 3 days; Reason: Recheck today's complaints, Continuance of care, Re-evaluation by your physician. w
--- NOTE | 2018-08-04 20:34 | ER ---
Nurse's Notes [facility] Name: Power Castillo Age: 43 yrs Sex: Male : 1975 Arrival Date: 08/04/2018 Time: 17:35 Bed 27 Private MD: Diagnosis: Drug abuse counseling and surveillance;Pain in right arm;Palpitations;Volume depletion Presentation: 08/04 17:48 Presenting complaint: Headache, anxiety, and palpitations sine last night at 8pm after hb using what he thinks may have been crystal meth. Transition of care: patient was not received from another setting of care. Onset of symptoms was August 03, 2018. Risk Assessment: Do you want to hurt yourself or someone else? Patient reports no desire to harm self or others. Care prior to arrival: None. 17:48 Method Of Arrival: Ambulatory 17:48 Acuity: JULIA 3 hb 20:59 Initial Sepsis Screen: Does the patient meet any 2 criteria? No. Patient's initial mg2 sepsis screen is negative. Does the patient have a suspected source of infection? No. Patient's initial sepsis screen is negative. Triage Assessment: 20:58 Headache History: The patient has had previous headaches and this one is similar to mg2 previous episodes. General: Appears in no apparent distress. comfortable, Behavior is calm, cooperative. Pain: Also complains of no other associated symptoms. Pain: Denies pain. Historical: - Allergies: 17:52 reaction to unknown medication either penicillin or clindamycin; hb - Home Meds: 17:52 meloxicam 15 mg oral tab 1 tab once daily [Active]; cetirizine oral oral [Active]; hb Flonase 50 mcg/actuation Nasal spsn [Active]; - PMHx: 17:52 None; hb - PSHx: 17:52 None; hb - Immunization history:: Adult Immunizations up to date. - Social history:: Smoking status: Patient uses tobacco products, smokes one pack cigarettes per day. - Ebola Screening: : No symptoms or risks identified at this time. Screenin:40 Abuse screen: Denies threats or abuse. Nutritional screening: No deficits noted. em Tuberculosis screening: No symptoms or risk factors identified. Fall Risk None identified. Assessment: 18:40 General: Appears in no apparent distress. comfortable, Behavior is cooperative, em anxious. Pain: Complains of pain in right arm Pain currently is 7 out of 10 on a pain scale. Quality of pain is described as sharp, Pain began 1 day ago. Neuro: Level of Consciousness is awake, alert, obeys commands, Oriented to person, place, time, situation, Reports headache Denies blurred vision dizziness. Cardiovascular: Reports palpitations, Denies chest pain, nausea, Heart tones S1 S2 present Capillary refill < 3 seconds Patient's skin is warm and dry. Rhythm is sinus rhythm. Respiratory: Airway is patent Respiratory effort is even, unlabored, Respiratory pattern is regular, symmetrical. GI: Abdomen is flat, Bowel sounds present X 4 quads. Patient currently denies nausea, vomiting. Derm: Skin is intact, is healthy with good turgor, Skin is pink, warm \T\ dry. Musculoskeletal: Range of motion: intact in all extremities. Vital Signs: 17:50 BP 180 / 107; Pulse 116; Resp 18; Temp 98.1; Pulse Ox 100% on R/A; Weight 108.86 kg; hb Height 6 ft. (182.88 cm); Pain 7/10; 18:40 BP 163 / 100; Pulse 92; Resp 22; Pulse Ox 100% on R/A; Pain 7/10; em 20:57 BP 154 / 100; Pulse 90; Resp 18; Pulse Ox 100% on R/A; Pain 0/10; mg2 17:50 Body Mass Index 32.55 (108.86 kg, 182.88 cm) hb ED Course: 17:35 Patient arrived in ED. as 17:50 Triage completed. hb 17:52 Arm band placed on left wrist. hb 18:21 Reebca Jones FNP-C is [facility]. snw 18:21 Hussein Lucio MD is Attending Physician. snw 18:30 Tapan Escalante LVN is Primary Nurse. em 18:40 Patient has correct armband on for positive identification. Placed in gown. Bed in low em position. Call light in reach. Side rails up X2. phototypesetting equipment monitor on. Pulse ox on. NIBP on. 19:00 Initial lab(s) drawn, by me, sent to lab. Flu and/or RSV swab sent to lab. Strep swab em sent to lab. Inserted saline lock: 20 gauge in right antecubital area, using aseptic technique. Blood collected. 20:48 UDS Sent. jp3 20:48 Urine collected: clean catch specimen, clear, susan colored, Amount Voided: 120mL. jp3 20:57 No provider procedures requiring assistance completed. IV discontinued, intact, mg2 bleeding controlled, No redness/swelling at site. Pressure dressing applied. Administered Medications: 19:11 Drug: NS 0.9% 1000 ml Route: IV; Rate: 1 bolus; Site: left antecubital; em 20:39 Follow up: Response: No adverse reaction; IV Status: Completed infusion mg2 19:20 Drug: Rocephin - (cefTRIAXone) 1 grams Route: IVPB; Infused Over: 10 mins; Site: left ls4 antecubital; 20:39 Follow up: Response: No adverse reaction; IV Status: Completed infusion mg2 Outcome: 20:33 Discharge ordered by . snw 20:58 Discharged to home ambulatory. mg2 20:58 Condition: stable 20:58 Discharge instructions given to patient, Instructed on discharge instructions, follow up and referral plans. Demonstrated understanding of instructions, follow-up care. 21:05 Patient left the ED. mg2 Signatures: Rebeca Jones, BRICKMASON-C BRICKMASON-Csnw Tapan Escalante, CREW DIRECTOR CREW DIRECTOR em Eve Desir as Yolanda Corona, RN RN Francisco Amezquita, RN RN mg2 Sam Chou 3 Corine Hoff, RN RN ls4
[2018-08-04 22:23] LABS: Barbiturates NEGATIVE (NEGATIVE); Benzodiazepines NEGATIVE (NEGATIVE); Cocaine NEGATIVE (NEGATIVE); METHAMPHETAM POSITIVE (NEGATIVE); Methadone NEGATIVE (NEGATIVE); Opiates NEGATIVE (NEGATIVE); Phencyclidine NEGATIVE (NEGATIVE); THC Cannibis POSITIVE (NEGATIVE)
--- NOTE | 2018-08-06 10:33 | EKG ---
Test Date: 2018-08-04 Test Time: 18:49:33 Core Measures Abstractor: TIFF MEASUREMENT RESULTS: Intervals: Rate: 87 UT: 150 QRSD: 96 QT: 370 QTc: 445 [place]: P: 64 UT: 150 QRS: -38 T: 48 INTERPRETIVE STATEMENTS: Normal sinus rhythm with sinus arrhythmia Left axis deviation Abnormal ECG Compared to ECG 06/06/2009 06:35:22 Left-axis deviation now present Sinus bradycardia no longer present Electronically Signed On 08-05-18 09:37:33 CDT by Stiven Rudd
== END 2018-08-04 21:05 | disposition home or self-care (01) ==
LOC: ER 17:33
DX: Z71.51 Drug abuse counseling and surveillance of drug abuser (principal); E86.9 Volume depletion, unspecified; M79.601 Pain in right arm; R51 Headache; R00.2 Palpitations; Z79.51 Long term (current) use of inhaled steroids; F17.210 Nicotine dependence, cigarettes, uncomplicated
CPT/HCPCS: 36415; 80048; 80307; 82550; 84484; 85025; 87070; 87081; 87804; 93005; 96365; 99284; J0696; J7030

== ENCOUNTER 2018-08-05 09:20 | Emergency (ER) | payer OTHER ==
[2018-08-05] MEDS ORDERED: NA CHLORIDE 0.9% 1,000 ML ONE (10:44)
[2018-08-05] MEDS ORDERED: LORazepam 2 MG/ML VIAL ONE (10:44)
[2018-08-05 11:08] LABS: Absolute Lymphocytes (CBC) 2.3 K/uL (0.7-4.9); Absolute Monocytes 0.7 K/uL (0.1-1.3); Absolute Neutrophil 4.6 K/uL (1.8-8.0); Basophils % 0.9 % (0-1.3); Eosinophils % 2.2 % (0-4.4); Hematocrit 50.8 % (39.6-49.0); Lymphocytes % 29.5 % (15.3-44.8); MPV 9.1 fL (7.6-11.3); Monocytes % 9.2 % (3.3-12.3); RBC Red Blood Cell Count 5.44 M/uL (4.33-5.43)
[2018-08-05 11:16] LABS: Barbiturates NEGATIVE (NEGATIVE); Benzodiazepines NEGATIVE (NEGATIVE); Cocaine NEGATIVE (NEGATIVE); METHAMPHETAM POSITIVE (NEGATIVE); Methadone NEGATIVE (NEGATIVE); Opiates NEGATIVE (NEGATIVE); Phencyclidine NEGATIVE (NEGATIVE); THC Cannibis POSITIVE (NEGATIVE)
[2018-08-05 11:24] LABS: Protime INR 0.95
[2018-08-05 11:30] LABS: Urine Blood NEGATIVE (NEG); Urine Glucose NEGATIVE (NEG); Urine Protein NEGATIVE (NEG); Urine Specific Gravity <1.005 (1.005-1.030); Urine pH 6.5 (5.0-7.0)
--- NOTE | 2018-08-05 11:41 | EDPHYS ---
Physician Documentation [facility] Name: Power Castillo Age: 43 yrs Sex: Male : 1975 Arrival Date: 08/05/2018 Time: 09:23 Bed 8 Private MD: ED Physician Andrew Negrete HPI: 08/05 10:25 This 43 yrs old Male presents to ER via Ambulatory with complaints of High mike Blood Pressure, Elevated Heart Rate. 10:25 The patient has elevated blood pressure and discovered this at home. Onset: The mike symptoms/episode began/occurred 3 day(s) ago. Modifying factors: The symptoms are aggravated by activity, The symptoms are alleviated by remaining still. Associated signs and symptoms: Pertinent positives: dizziness, weakness. Severity of symptoms: At its worst the blood pressure was mild, moderate, in the emergency department the blood pressure is unchanged. The patient has not experienced similar symptoms in the past. Historical: - Allergies: 09:43 reaction to unknown medication either penicillin or clindamycin; dm5 - Home Meds: 09:43 cetirizine Oral [Active]; Flonase 50 mcg/actuation Nasal spsn [Active]; meloxicam 15 mg dm5 Oral tab 1 tab once daily [Active]; - PSHx: 09:54 None; sv - Immunization history:: Adult Immunizations up to date. - Social history:: Smoking status: Patient uses tobacco products, denies chronic smoking, but will smoke occasionally. - Ebola Screening: : Patient negative for fever greater than or equal to 101.5 degrees Fahrenheit, and additional compatible Ebola Virus Disease symptoms Patient denies exposure to infectious person Patient denies travel to an Ebola-affected area in the 21 days before illness onset No symptoms or risks identified at this time. - Family history:: not pertinent. ROS: 10:25 Constitutional: Negative for fever, chills, and weight loss, Eyes: Negative for injury, mike pain, redness, and discharge, ENT: Negative for injury, pain, and discharge, Neck: Negative for injury, pain, and swelling, Cardiovascular: Negative for chest pain, palpitations, and edema, Respiratory: Negative for shortness of breath, cough, wheezing, and pleuritic chest pain, Back: Negative for injury and pain, : Negative for injury, bleeding, discharge, and swelling, MS/Extremity: Negative for injury and deformity, Skin: Negative for injury, rash, and discoloration, Neuro: Negative for headache, weakness, numbness, tingling, and seizure. 10:25 Cardiovascular: Positive for palpitations. Exam: 10:25 Constitutional: This is a well developed, well nourished patient who is awake, alert, mike and in no acute distress. Head/Face: Normocephalic, atraumatic. Eyes: Pupils equal round and reactive to light, extra-ocular motions intact. Lids and lashes normal. Conjunctiva and sclera are non-icteric and not injected. Cornea within normal limits. Periorbital areas with no swelling, redness, or edema. ENT: Nares patent. No nasal discharge, no septal abnormalities noted. Tympanic membranes are normal and external auditory canals are clear. Oropharynx with no redness, swelling, or masses, exudates, or evidence of obstruction, uvula midline. Mucous membranes moist. Neck: Trachea midline, no thyromegaly or masses palpated, and no cervical lymphadenopathy. Supple, full range of motion without nuchal rigidity, or vertebral point tenderness. No Meningismus. Chest/axilla: Normal chest wall appearance and motion. Nontender with no deformity. No lesions are appreciated. Cardiovascular: Regular rate and rhythm with a normal S1 and S2. No gallops, murmurs, or rubs. Normal PMI, no JVD. No pulse deficits. Respiratory: Lungs have equal breath sounds bilaterally, clear to auscultation and percussion. No rales, rhonchi or wheezes noted. No increased work of breathing, no retractions or nasal flaring. Abdomen/GI: Soft, non-tender, with normal bowel sounds. No distension or tympany. No guarding or rebound. No evidence of tenderness throughout. Back: No spinal tenderness. No costovertebral tenderness. Full range of motion. Male : Normal genitalia with no discharge or lesions. Skin: Warm, dry with normal turgor. Normal color with no rashes, no lesions, and no evidence of cellulitis. MS/ Extremity: Pulses equal, no cyanosis. Neurovascular intact. Full, normal range of motion. Neuro: Awake and alert, GCS 15, oriented to person, place, time, and situation. Cranial nerves II-XII grossly intact. Motor strength 5/5 in all extremities. Sensory grossly intact. Cerebellar exam normal. Normal gait. Psych: Awake, alert, with orientation to person, place and time. Behavior, mood, and affect are within normal limits. Vital Signs: 09:43 BP 150 / 100; Pulse 75; Resp 18; Temp 98.1; Pulse Ox 97% on R/A; Weight 108.86 kg; dm5 Height 6 ft. 0 in. (182.88 cm); Pain 5/10; 09:45 BP 136 / 99; Pulse 74; Resp 18; Pulse Ox 97% ; sv 11:04 BP 137 / 97; Pulse 68; Resp 13; Pulse Ox 99% ; sv 12:25 BP 133 / 88; Pulse 70; Resp 18; Pulse Ox 99% ; sv 09:43 Body Mass Index 32.55 (108.86 kg, 182.88 cm) dm5 MDM: 09:46 Patient medically screened. [facility] 11:40 Data reviewed: vital signs, nurses notes, lab test result(s), EKG. [facility] 08/05 10:25 Order name: Acetaminophen [facility] 08/05 10:25 Order name: Basic Metabolic Panel [facility] 08/05 10:25 Order name: CBC with Diff; Complete Time: 11:16 [facility] 08/05 10:25 Order name: ETOH Level; Complete Time: 11:40 [facility] 08/05 10:25 Order name: Hepatic Function [facility] 08/05 10:25 Order name: PT-INR; Complete Time: 11:40 [facility] 08/05 09:43 Order name: EKG; Complete Time: 09:44 08/05 10:25 Order name: Ptt, Activated; Complete Time: 11:40 [facility] 08/05 10:25 Order name: Salicylate [facility] 08/05 10:25 Order name: Urine Drug Screen; Complete Time: 11:40 [facility] 08/05 11:01 Order name: Urine Dipstick--Ancillary (enter results); Complete Time: 11:40 08/05 09:43 Order name: EKG - Nurse/Tech; Complete Time: 10:35 08/05 10:25 Order name: IV Saline Lock; Complete Time: 11:05 [facility] 08/05 10:25 Order name: Labs collected and sent; Complete Time: 11:06 [facility] 08/05 10:25 Order name: Urine Dipstick-Ancillary (obtain specimen); Complete Time: 11:22 [facility] Administered Medications: 11:05 Drug: NS 0.9% 1000 ml Route: IV; Rate: 1 bolus; Site: right antecubital; sv 12:00 Follow up: Response: No adverse reaction; IV Status: Completed infusion; IV Intake: sv 1000ml 11:05 Drug: Ativan 0.5 mg Route: IVP; Site: right antecubital; sv 11:30 Follow up: Response: No adverse reaction sv 12:19 Not Given (Physician Discretion): Ativan 0.5 mg IVP once sv Disposition: 08/05/18 11:41 Discharged to Home. Impression: Palpitations. - Condition is Stable. - Discharge Instructions: Stimulant Use Disorder-Amphetamines, Palpitations, Substance Use Disorder, Stimulant Use Disorder-Methamphetamines, Palpitations, [id number]. - Medication Reconciliation Form, Thank You Letter, Antibiotic Education, Prescription Opioid Use form. - Follow up: Private Physician; When: 2 - 3 days; Reason: Recheck today's complaints, Continuance of care, Re-evaluation by your physician. - Problem is new. - Symptoms have improved. Signatures: Dispatcher [employer] [facility] Robina Atkins RN RN dmHeidi Ramos RN RN sv Anderson, Corey, MD MD cha Corrections: (The following items were deleted from the chart) 12:05 12:03 EKG Electrocardiogram ordered. [facility] 12:26 11:41 08/05/2018 11:41 Discharged to Home. Impression: Palpitations. Condition is sv Stable. Discharge Instructions: Palpitations, Substance Use Disorder, Palpitations, [id number], Stimulant Use Disorder-Amphetamines, Stimulant Use Disorder-Methamphetamines. Forms are Medication Reconciliation Form, Thank You Letter, Antibiotic Education, Prescription Opioid Use. Follow up: Private Physician; When: 2 - 3 days; Reason: Recheck today's complaints, Continuance of care, Re-evaluation by your physician. Problem is new. Symptoms have improved. mike
--- NOTE | 2018-08-05 11:41 | ER ---
Nurse's Notes [facility] Name: Power Castillo Age: 43 yrs Sex: Male : 1975 Arrival Date: 08/05/2018 Time: 09:23 Bed 8 Private MD: Diagnosis: Palpitations Presentation: 08/05 09:39 Presenting complaint: Patient states: high blood pressure and elevated heart rate. pt dm5 seen here yesterday and swabbed for flu and strep. Pt did state that he did 2 lines of crystal meth on Friday evening and hasn't felt right since. Transition of care: patient was not received from another setting of care. Onset of symptoms was August 03, 2018. Risk Assessment: Do you want to hurt yourself or someone else? Patient reports no desire to harm self or others. Initial Sepsis Screen: Does the patient meet any 2 criteria? No. Patient's initial sepsis screen is negative. Does the patient have a suspected source of infection? Yes:. Care prior to arrival: None. 09:39 Method Of Arrival: Ambulatory dm5 09:39 Acuity: JULIA 3 dm5 Triage Assessment: 09:43 General: Appears in no apparent distress. Behavior is calm, cooperative. Pain: dm5 Complains of pain in head Pain currently is 5 out of 10 on a pain scale. Neuro: Level of Consciousness is awake, alert, obeys commands. Respiratory: Airway is patent Respiratory effort is even, Respiratory pattern is regular. 09:44 General: Appears in no apparent distress. comfortable, well developed, Behavior is sv calm, cooperative, appropriate for age. General: Reports that he hasn't slept in 3 days. Reports doing some "what looked like some meth 3 days ago and I sniffed it.". Pain: Denies pain. EENT: No signs and/or symptoms were reported regarding the EENT system. Neuro: Level of Consciousness is awake, alert, obeys commands, Oriented to person, place, time, situation, Moves all extremities. Full function Gait is steady, Speech is normal, Facial symmetry appears normal. Cardiovascular: Patient's skin is warm and dry. Pulses are 3+ in right radial artery and left radial artery Rhythm is sinus rhythm Chest pain is denied. Respiratory: Airway is patent Respiratory effort is even, unlabored, Respiratory pattern is regular, symmetrical, Denies shortness of breath labored breathing. GI: No signs and/or symptoms were reported involving the gastrointestinal system. : No signs and/or symptoms were reported regarding the genitourinary system. Derm: Skin is pink, warm \\T\\ dry. Musculoskeletal: Range of motion: intact in all extremities. Historical: - Allergies: 09:43 reaction to unknown medication either penicillin or clindamycin; dm5 - Home Meds: 09:43 cetirizine Oral [Active]; Flonase 50 mcg/actuation Nasal spsn [Active]; meloxicam 15 mg dm5 Oral tab 1 tab once daily [Active]; - PSHx: 09:54 None; sv - Immunization history:: Adult Immunizations up to date. - Social history:: Smoking status: Patient uses tobacco products, denies chronic smoking, but will smoke occasionally. - Ebola Screening: : Patient negative for fever greater than or equal to 101.5 degrees Fahrenheit, and additional compatible Ebola Virus Disease symptoms Patient denies exposure to infectious person Patient denies travel to an Ebola-affected area in the 21 days before illness onset No symptoms or risks identified at this time. - Family history:: not pertinent. Screenin:44 Abuse screen: Denies threats or abuse. Denies injuries from another. Nutritional sv screening: No deficits noted. Tuberculosis screening: No symptoms or risk factors identified. Fall Risk None identified. Assessment: 09:40 General: Appears in no apparent distress. uncomfortable, well developed, Behavior is sv cooperative, anxious. Pain: Denies pain. Neuro: Level of Consciousness is awake, alert, obeys commands, Oriented to person, place, time, situation, Moves all extremities. Full function Gait is steady, Speech is normal. Respiratory: Airway is patent Respiratory effort is even, unlabored, Respiratory pattern is regular, symmetrical. Derm: Skin is pink, warm \\T\\ dry. Musculoskeletal: Range of motion: intact in all extremities. 11:04 Reassessment: Patient appears in no apparent distress at this time. No changes from sv previously documented assessment. Patient and/or family updated on plan of care and expected duration. Pain level reassessed. Patient is alert, oriented x 3, equal unlabored respirations, skin warm/dry/pink. 12:20 Reassessment: Patient appears in no apparent distress at this time. Patient and/or sv family updated on plan of care and expected duration. Pain level reassessed. Patient is alert, oriented x 3, equal unlabored respirations, skin warm/dry/pink. Patient states feeling better. Patient states symptoms have improved. Vital Signs: 09:43 BP 150 / 100; Pulse 75; Resp 18; Temp 98.1; Pulse Ox 97% on R/A; Weight 108.86 kg; dm5 Height 6 ft. 0 in. (182.88 cm); Pain 5/10; 09:45 BP 136 / 99; Pulse 74; Resp 18; Pulse Ox 97% ; sv 11:04 BP 137 / 97; Pulse 68; Resp 13; Pulse Ox 99% ; sv 12:25 BP 133 / 88; Pulse 70; Resp 18; Pulse Ox 99% ; sv 09:43 Body Mass Index 32.55 (108.86 kg, 182.88 cm) 5 ED Course: 09:23 Patient arrived in ED. as 09:39 Heidi Blair, RN is Primary Nurse. sv 09:42 Triage completed. [facility] 09:44 Arm band placed on Patient placed in an exam room, on a stretcher, on cardiac nurse practitioner, sv on pulse oximetry. 09:44 Patient has correct armband on for positive identification. Placed in gown. Bed in low sv position. Call light in reach. quality assurance monitor final on. Pulse ox on. NIBP on. Door closed. Warm blanket given. Head of bed elevated. 09:46 Andrew Negrete MD is Attending Physician. [facility] 09:48 EKG done, by garage door service technician. reviewed by Andrew Negrete MD. at1 10:55 Initial lab(s) drawn, by ut, sent to lab. Inserted saline lock: 18 gauge in right sv antecubital area, using aseptic technique. Blood collected. Flushed right antecubital with 5 ml normal saline. 12:24 No provider procedures requiring assistance completed. IV discontinued, intact, sv bleeding controlled, No redness/swelling at site. Pressure dressing applied, Pt removed his own IV and left it on the bedside table. Administered Medications: 11:05 Drug: NS 0.9% 1000 ml Route: IV; Rate: 1 bolus; Site: right antecubital; sv 12:00 Follow up: Response: No adverse reaction; IV Status: Completed infusion; IV Intake: sv 1000ml 11:05 Drug: Ativan 0.5 mg Route: IVP; Site: right antecubital; sv 11:30 Follow up: Response: No adverse reaction sv 12:19 Not Given (Physician Discretion): Ativan 0.5 mg IVP once sv Intake: 12:00 IV: 1000ml; Total: 1000ml. sv Outcome: 11:41 Discharge ordered by . mike 12:24 Discharged to home ambulatory. sv 12:24 Condition: stable 12:24 Condition: improved 12:24 Discharge instructions given to patient, Instructed on discharge instructions, follow up and referral plans. Demonstrated understanding of instructions, follow-up care. 12:26 Patient left the ED. sv Signatures: Robina Atkins, RN RN dmHeidi Ramos RN Andrew Butterfield MD MD cha Martinez, Amelia as Gonzales, Amanda, consulting psychiatrist EKG Tat1
[2018-08-05 12:05] LABS: ALT/SGPT 88 U/L (12-78); AST/SGOT 31 U/L (15-37); Albumin 3.9 g/dL (3.4-5.0); Alkaline Phosphatase 87 U/L (45-117); BUN Blood Urea Nitrogen 12 mg/dL (7-18); Bicarbonate 26 mmol/L (21-32); Bilirubin Direct 0.2 mg/dL (0-0.2); Bilirubin Total 1.1 mg/dL (0.2-1.0); Glucose Level 125 mg/dL (74-106); Potassium 4.2 mmol/L (3.5-5.1); Protein, Total 7.8 g/dL (6.4-8.2); Sodium Level 141 mmol/L (136-145)
--- NOTE | 2018-08-06 10:36 | EKG ---
Test Date: 2018-08-05 Test Time: 09:36:46 Commercial Kitchen Service Technician: KARLIE MEASUREMENT RESULTS: Intervals: Rate: 79 FL: 146 QRSD: 92 QT: 390 QTc: 447 [place]: P: 74 FL: 146 QRS: -42 T: 69 INTERPRETIVE STATEMENTS: Normal sinus rhythm Left axis deviation Abnormal ECG Compared to ECG 08/04/2018 18:49:33 Sinus arrhythmia no longer present Electronically Signed On 08-05-18 17:49:33 CDT by Stiven Rudd
== END 2018-08-05 12:26 | disposition home or self-care (01) ==
LOC: ER 09:20
DX: R00.2 Palpitations (principal); Z72.0 Tobacco use; Z88.1 Allergy status to other antibiotic agents
CPT/HCPCS: 36415; 80048; 80076; 80307; 80320; 80329; 81003; 85025; 85610; 85730; 93005; J7030

== ENCOUNTER 2021-08-24 11:40 | Emergency (ER) | payer OTHER ==
--- OUTSIDE RECORDS SUMMARY | 2021-08-24 11:44 | XMS REPORT | Continuity of Care Document ---
:1975 [address] [facility] t Address [address] [place] [address] Care Team Providers Name Role Phone MEHDI Attending Clinician Unavailable MEHDI Admitting Clinician Unavailable Payers Payer Name Policy Type Policy Number Effective Date Expiration Date S ource Problems This patient has no known problems. Allergies, Adverse Reactions, Alerts Allergy Allergy Status Severity Reaction(s) Onset Inactive Treating Comm ents Source Name Type Date Date Clinician No Known DA Active U [facility] Allergie 08-23 [facility] 00:00: d 00 [facility] No Known DA Active U [facility] Allergie 08-23 [facility] s 00:00: d 00 [facility] Medications This patient has no known medications. Procedures This patient has no known procedures. Encounters Start End Encounter Admission Attending Care Care Encounter Source Date/Time Date/Time Type Type Clinicians Facility Department ID 2020-08-23 Inpatient HCAMN ROBERT [id number] [facility] 17:24:00 [id number] [facility] 2020-07-28 2020-07-28 Outpatient KB MIM[facility] FLFLORESITA [id number] [place] 02:16:00 02:16:00 KY[place] [id number] [facility] 2020-07-27 2020-07-27 Outpatient [facility] [id number] [place] 12:34:00 12:34:00 KYARA [id number] [facility] Results Test Description Test Time Test Comments Results Result Comments Source COVID 19 INHOUSE AG 2020-08-23 19:15:00 Test Item Value Reference Range Interpretation Comme nts COVID 19 INHOUSE AG (test code = [id number]) POSITIVE NEGATIVE A REPEATED TEST --CONFLICTING RESULTS-SPOKE TO BRANDON FORRECOLLECT.-LAB-ALB
--- NOTE | 2021-08-24 14:26 | ER ---
Nurse's Notes [facility] Name: Power Castillo Age: 46 yrs Sex: Male : 1975 Arrival Date: 08/24/2021 Time: 11:45 Bed 9 Private MD: Diagnosis: Headache;Polyneuropathy, unspecified Presentation: 08/24 11:53 Chief complaint: Patient states: "My eyes have been swollen for a year since I had ab2 covid and the swelling has gotten worse and now I have terrible headache. My head feels like its on fire and my yes are strained.". Coronavirus screen: Vaccine status: Patient reports receiving the 2nd dose of the covid vaccine. Client denies travel out of the [place] in the last 14 days. At this time, the client does not indicate any symptoms associated with coronavirus-19. Ebola Screen: Patient negative for fever greater than or equal to 101.5 degrees Fahrenheit, and additional compatible Ebola Virus Disease symptoms Patient denies exposure to infectious person. Patient denies travel to an Ebola-affected area in the 21 days before illness onset. No symptoms or risks identified at this time. Initial Sepsis Screen: Does the patient meet any 2 criteria? No. Patient's initial sepsis screen is negative. Does the patient have a suspected source of infection? No. Patient's initial sepsis screen is negative. Risk Assessment: Do you want to hurt yourself or someone else? Patient reports no desire to harm self or others. Onset of symptoms is unknown. 11:53 Method Of Arrival: Ambulatory ab2 11:53 Acuity: JULIA 4 ab2 Triage Assessment: 11:58 Headache History: Denies prior headaches. General: Appears in no apparent distress. ab2 uncomfortable, Behavior is calm, cooperative, appropriate for age. Pain: Complains of pain in head Pain currently is 10 out of 10 on a pain scale. Pain began one year Is Also complains of. Neuro: Level of Consciousness is awake, alert, obeys commands, Oriented to person, place, time, situation, Appropriate for age Reports headache. Historical: - Allergies: 11:56 No Known Allergies; ab2 - PMHx: 11:56 Osteoarthritis; Spinal Stenosis; Degenerative Disc Disease; ab2 - PSHx: 11:56 None; ab2 - Immunization history:: Adult Immunizations up to date. - Social history:: Smoking status: Patient reports the use of cigarette tobacco products, smokes one pack cigarettes per day. - Family history:: not pertinent. - Hospitalizations: : No recent hospitalization is reported. Screenin:17 Abuse screen: Denies threats or abuse. Denies injuries from another. Nutritional ab2 screening: No deficits noted. Tuberculosis screening: No symptoms or risk factors identified. Fall Risk None identified. Assessment: 13:50 General: Appears in no apparent distress. Behavior is calm, cooperative. Pain: iw Complains of pain in forehead and top of head and head. Neuro: Level of Consciousness is awake, alert, obeys commands, Oriented to person, place, time, situation, Moves all extremities. Full function. Cardiovascular: Patient's skin is warm and dry. Respiratory: Respiratory effort is even, unlabored, Respiratory pattern is regular, symmetrical. Derm: Skin is intact, is healthy with good turgor. Musculoskeletal: Range of motion: intact in all extremities. 14:50 Reassessment: Patient appears in no apparent distress at this time. Patient and/or iw family updated on plan of care and expected duration. Pain level reassessed. Patient is alert, oriented x 3, equal unlabored respirations, skin warm/dry/pink. 15:07 Reassessment: Patient appears in no apparent distress at this time. Patient and/or jb4 family updated on plan of care and expected duration. Pain level reassessed. Patient is alert, oriented x 3, equal unlabored respirations, skin warm/dry/pink. D/c pending ride home. Vital Signs: 11:53 BP 159 / 89; Pulse 69; Resp 18; Temp 98.8(TE); Pulse Ox 100% on R/A; Weight 111.13 kg; ab2 Height 6 ft. 0 in. (182.88 cm); Pain 10/10; 13:17 BP 144 / 84; Pulse 63; Resp 17; Pulse Ox 98% on R/A; ab2 11:53 Body Mass Index 33.23 (111.13 kg, 182.88 cm) ab2 Елена Coma Score: 14:22 Eye Response: spontaneous(4). Verbal Response: oriented(5). Motor Response: obeys rn commands(6). Total: 15. ED Course: 11:45 Patient arrived in ED. as 11:56 Triage completed. ab2 11:58 Arm band placed on left wrist. ab2 13:17 Patient has correct armband on for positive identification. Bed in low position. Call ab2 light in reach. Side rails up X2. 13:17 No provider procedures requiring assistance completed. ab2 13:20 Hussein Lucio MD is Attending Physician. rn 13:46 CT Head C Spine In Process Unspecified. EDMS 14:35 Dianne Burroughs, RN is Primary Nurse. iw 14:51 Patient did not have IV access during this emergency room visit. iw Administered Medications: 15:05 CANCELLED (Duplicate Order): HYDROcodone-acetaminophen (5 mg-500 mg) 2 tabs PO once; rn RASS on ADMIN: Combtv4, Very Agttd3, Agttd2, Rstlss1, AlertClm0, Drwsy-1, Lt Sdtn-2, Mod Sdtn-3, Dp Sdtn-4, UnArsble-5 15:06 Drug: Ketorolac 30 mg Route: IM; Site: left gluteus; jb4 15:42 Follow up: Response: No adverse reaction jb4 15:06 Drug: HYDROcodone-acetaminophen (5 mg-500 mg) 1 tabs Route: PO; jb4 15:42 Follow up: Response: No adverse reaction jb4 Outcome: 14:25 Discharge ordered by . rn 15:41 Discharged to home ambulatory, with significant other. jb4 15:41 Condition: stable 15:41 Discharge instructions given to patient, Instructed on discharge instructions, follow up and referral plans. Demonstrated understanding of instructions, follow-up care. 15:42 Patient left the ED. jb4 Signatures: Dispatcher [employer] Eve Padron as Dianne Burroughs, MARLON MASON iw Hussein Lucio MD MD rn Bryson, James, RN RN jb4 Latrell Fernandez ab2 Corrections: (The following items were deleted from the chart) 11:57 11:56 Allergies: reaction to unknown medication either penicillin or clindamycin; ab2 ab2 :57 11:56 PMHx: None; ab2 ab2
--- NOTE | 2021-08-24 14:26 | EDPHYS ---
Physician Documentation [facility] Name: Power Castillo Age: 46 yrs Sex: Male : 1975 Arrival Date: 08/24/2021 Time: 11:45 Bed 9 Private MD: ED Physician Hussein Lucio HPI: 08/24 14:22 This 46 yrs old Male presents to ER via Ambulatory with complaints of Headache. rn 14:22 The patient complains of pain to the top of head and forehead. The patient describes rn the headache as aching. Onset: The symptoms/episode began/occurred 1 year(s) ago. Associated signs and symptoms: Pertinent negatives: altered mental status, fever, rash, vision changes, vision loss, weakness, vertigo. Severity of symptoms: At its worst the pain was moderate, in the emergency department the pain has improved. Headache History: The patient has had previous headaches and this one is similar to previous episodes. The symptoms are alleviated by nothing. the symptoms are aggravated by nothing. The patient has experienced similar episodes in the past. The patient has not recently seen a physician. Pt reports headaches for 1 year, no trauma, no focal neuro complaints, no seizures. No fever. Reports chronic back problems with neuropathy of legs and arms. States headaches began after COVID infection last year.. Historical: - Allergies: 11:56 No Known Allergies; ab2 - PMHx: 11:56 Osteoarthritis; Spinal Stenosis; Degenerative Disc Disease; ab2 - PSHx: 11:56 None; ab2 - Immunization history:: Adult Immunizations up to date. - Social history:: Smoking status: Patient reports the use of cigarette tobacco products, smokes one pack cigarettes per day. - Family history:: not pertinent. - Hospitalizations: : No recent hospitalization is reported. ROS: 14:22 Constitutional: Negative for fever, chills, and weight loss, Eyes: Negative for injury, rn pain, redness, and discharge, Neck: Negative for injury, pain, and swelling, Cardiovascular: Negative for chest pain, palpitations, and edema, Respiratory: Negative for shortness of breath, cough, wheezing, and pleuritic chest pain, Abdomen/GI: Negative for abdominal pain, nausea, vomiting, diarrhea, and constipation, Back: Negative for injury : Negative for injury, bleeding, discharge, and swelling, MS/Extremity: Negative for injury and deformity, Skin: Negative for injury, rash, and discoloration, Neuro: Negative for weakness, numbness, tingling, and seizure. Exam: 14:22 Constitutional: This is a well developed, well nourished patient who is awake, alert, rn and in no acute distress. Head/Face: Normocephalic, atraumatic. Eyes: Periorbital areas with no swelling, redness, or edema. Neck: Trachea midline, no masses palpated, and no cervical lymphadenopathy. Supple, full range of motion without nuchal rigidity, or vertebral point tenderness. No Meningismus. Cardiovascular: Regular rate and rhythm. No pulse deficits. Respiratory: No increased work of breathing, no retractions or nasal flaring. Skin: Warm, dry with normal turgor. Normal color with no rashes, no lesions, and no evidence of cellulitis. MS/ Extremity: Pulses equal, no cyanosis. Neurovascular intact. Full, normal range of motion. Equal circumference. Neuro: Awake and alert, GCS 15, oriented to person, place, time, and situation. Cranial nerves II-XII grossly intact. Motor strength 5/5 in all extremities. Sensory grossly intact. Cerebellar exam normal. Normal gait. Vital Signs: 11:53 BP 159 / 89; Pulse 69; Resp 18; Temp 98.8(TE); Pulse Ox 100% on R/A; Weight 111.13 kg; ab2 Height 6 ft. 0 in. (182.88 cm); Pain 10/10; 13:17 BP 144 / 84; Pulse 63; Resp 17; Pulse Ox 98% on R/A; ab2 11:53 Body Mass Index 33.23 (111.13 kg, 182.88 cm) ab2 [place] Coma Score: 14:22 Eye Response: spontaneous(4). Verbal Response: oriented(5). Motor Response: obeys rn commands(6). Total: 15. MDM: 13:20 Patient medically screened. rn 14:22 Differential diagnosis: hypertensive headache, migraine, neoplasm, tension headache, rn trigeminal neuralgia, vasomotor headache. Data reviewed: vital signs, nurses notes, radiologic studies, CT scan, and as a result, I will discharge patient. Counseling: I had a detailed discussion with the patient and/or guardian regarding: the historical points, exam findings, and any diagnostic results supporting the discharge/admit diagnosis, radiology results, the need for outpatient follow up, to return to the emergency department if symptoms worsen or persist or if there are any questions or concerns that arise at home. Special discussion: I discussed with the patient/guardian in detail that at this point there is no indication for admission to the hospital. It is understood, however, that if the symptoms persist or worsen the patient needs to return immediately for re-evaluation. Based on the history and exam findings, there is no indication for further emergent testing or inpatient evaluation. I discussed with the patient/guardian the need to see the neurologist for further evaluation of the symptoms. 08/24 13:34 Order name: CT Head C Spine rn Administered Medications: 15:05 CANCELLED (Duplicate Order): HYDROcodone-acetaminophen (5 mg-500 mg) 2 tabs PO once; rn RASS on ADMIN: Combtv4, Very Agttd3, Agttd2, Rstlss1, AlertClm0, Drwsy-1, Lt Sdtn-2, Mod Sdtn-3, Dp Sdtn-4, UnArsble-5 15:06 Drug: Ketorolac 30 mg Route: IM; Site: left gluteus; jb4 15:42 Follow up: Response: No adverse reaction 4 15:06 Drug: HYDROcodone-acetaminophen (5 mg-500 mg) 1 tabs Route: PO; jb4 15:42 Follow up: Response: No adverse reaction jb4 Disposition Summary: 08/24/21 14:25 Discharge Ordered Location: Home rn Problem: new rn Symptoms: have improved rn Condition: Stable rn Diagnosis - Headache rn - Polyneuropathy, unspecified rn Followup: rn - With: Private Physician - When: As needed - Reason: Recheck today's complaints, Re-evaluation by your physician Discharge Instructions: - Discharge Summary Sheet rn - General Headache Without Cause rn - Hypertension, Adult rn - Peripheral Neuropathy rn Forms: - Medication Reconciliation Form rn - Thank You Letter rn - Antibiotic business intern - Prescription Opioid Use rn Signatures: Dispatcher [employer] Hussein Hurtado MD MD rn Bryson, James, RN RN jb4 Latrell Fernandez Corrections: (The following items were deleted from the chart) 11:57 11:56 Allergies: reaction to unknown medication either penicillin or clindamycin; ab2 ab2 11:57 11:56 PMHx: None; ab2 ab2 15:05 14:56 HYDROcodone-acetaminophen (5 mg-500 mg) 2 tabs PO once; RASS on ADMIN: Combtv4, rn Very Agttd3, Agttd2, Rstlss1, AlertClm0, Drwsy-1, Lt Sdtn-2, Mod Sdtn-3, Dp Sdtn-4, UnArsble-5 ordered. rn
[2021-08-24] MEDS ORDERED: HYDROCODONE/APAP 5/325 MG TAB ONE (15:02)
[2021-08-24] MEDS ORDERED: KETOROLAC 30 MG/ML INJ ONE (15:02)
[2021-08-24 15:46] VITALS: TEMP 98.8
[2021-08-24 15:48] VITALS: BP 144/84; O2SAT 98
--- NOTE | 2021-08-24 22:31 | RAD REPORT ---
EXAM DESCRIPTION: CT - Head C Spine Mpr Wo Con - 08/24/2021 3:34 pm CLINICAL HISTORY: Headache and neck pain COMPARISON: 2013 TECHNIQUE: Computed axial tomography of the head and cervical spine was obtained. Sagittal and coronal reconstruction was performed. All CT scans are performed using dose optimization technique as appropriate and may include automated exposure control or mA/KV adjustment according to patient size. FINDINGS: An intracranial bleed is not seen. The ventricles are normal in caliber. An extra-axial fl uid collection is not noted.Fluid within the visualized sinuses and mastoids is not seen. Mucus reten tion cyst right maxillary sinus A cervical fracture is not visualized. No dislocation is noted. No high-grade central/foraminal stenosis is seen. A preliminary report was given after completion of the exam. This dictation is delayed due to technic al issues with pacs/fluency IMPRESSION: No acute intracranial abnormality is seen. A cervical fracture is not visualized. No high-grade central/foraminal stenosis If the patient continues to have symptoms to suggest intracranial /spinal cord/spinal canal pathology then MRI would be recommended
== END 2021-08-24 15:42 | disposition home or self-care (01) ==
LOC: ER 11:40
DX: R51.9 Headache, unspecified (principal); G62.9 Polyneuropathy, unspecified; F17.210 Nicotine dependence, cigarettes, uncomplicated; Z86.16 Personal history of COVID-19
CPT/HCPCS: 70450; 72125; 96372; 99283

== ENCOUNTER 2023-08-30 12:40 | Emergency (ER) | payer OTHER ==
--- OUTSIDE RECORDS SUMMARY | 2023-08-30 12:42 | XMS REPORT | Continuity of Care Document ---
Author Name Unknown Address [address] [facility] [address] [place] [address] [facility]connect Address [address] [facility] [place] [address] Care Team Providers Care Inspector Dials Name Role Phone CTR, [facility] Primary Care Physician U LUIS Rosas Attending Clinician Unavailab le Doctor Unassigned, Blevins Attending Clinician U ZACHERY Fernandez Attending Clinician Unavailable AMBREEN_REAL Attending Clinician Unavailable Dexter Hugo MD Attending Clinician [phone] DEXTER HUGO Attending Clinician Unavail able DEXTER HUGO Attending Clinician Unavail able MEHDI Admitting Clinician Unavailable Payers Payer Name Policy Type Policy Number Effective Date Expirati on Date Source [facility] [id number] 2023 00:00:00 Problems Condition Name Condition Details Condition Category Status Onset Date Resolution Date Last Treatment Date Treating Clinician Comments Source No known active problems No known active problems Disease [facility] Allergies, Adverse Reactions, Alerts Allergy Name Allergy Type Status Severity Reaction(s) Onset Date Inactive Date Treating Clinician Comments Source No Known Allergie s DA Active U 08-23 00:00: 00 [facility] No Known Allergie s DA Active U 08-23 00:00: 00 [facility] NO KNOWN ALLERGIE S Drug Class Active [facility] Social History Social Habit Start Date Stop Date Quantity Comments Source Sexual orientation U [facility] Exposure to SARS-CoV-2 (event) 2022-04-23 00:00:00 2022-05-03 12:41:00 Not sure [facility] Sex Assigned At 1975 00:00:00 1975 00:00:00 [facility] Smoking Status Start Date Stop Date Source Tobacco smoking consumption unknown [facility] Medications Ordered Medication Name Filled Medication Name Start Date Stop Date Current Medication? Ordering Clinician Indication Dosage Frequency Signature (SIG) Comments Components Source tamsulosin 0.4 mg 24 hr capsule 2021-05 00:00: 00 Yes .4mg 0.4 mg. [facility] cyclobenzap rine 10 mg tablet 2021-05 00:00: 00 Yes 10mg 10 mg. [facility] gabapentin 300 mg capsule 2021-05 00:00: 00 Yes 300mg 300 mg. [facility] docusate 100 mg capsule 2021-05 00:00: 00 Yes 100mg 100 mg. [facility] finasteride 5 mg tablet 2021-05 00:00: 00 Yes 5mg 5 mg. [facility] atorvastati n 40 mg tablet -15 00:00: 00 Yes 20mg 20 mg. [facility] cetirizine 10 mg tablet 01-21 00:00: 00 Yes 10mg 10 mg. [facility] meloxicam 15 mg tablet 01-21 00:00: 00 Yes 15mg 15 mg. [facility] chlorhexidi ne 4 % external liquid 1-05 00:00: 00 Yes APPLY SMALL AMOUNT TO THE SKIN TIW FOR INFECTION AVOID HEAD AND NECK [facility] amoxicillin 500 mg capsule 09-07 00:00: 00 Yes 500mg Take 1 capsule by mouth 3 (three) times daily. [facility] ibuprofen 800 mg tablet 09-07 00:00: 00 Yes 800mg Take 1 tablet by mouth every 8 (eight) hours as needed (PAIN). [facility] Vital Signs Vital Name Observation Time Observation Value Comments S ource Systolic blood pressure 2023-08-11 14:25:00 161 mm[Hg] [facility] Diastolic blood pressure 2023-08-11 14:25:00 85 mm[Hg] [facility] Heart rate 2023-08-11 14:25:00 63 /min [facility] Body temperature 2023-08-11 14:25:00 37 Elsa [facility] Respiratory rate 2023-08-11 14:25:00 18 /min [facility] Body weight 2023-08-11 14:25:00 122.471 kg [facility] BMI 2023-08-11 14:25:00 36.62 kg/m2 [facility] Oxygen saturation in Arterial blood by Pulse oximetry 2023-08-11 14:25:00 97 /min [facility] Systolic blood pressure 2022-05-03 20:15:00 129 mm[Hg] [facility] Diastolic blood pressure 2022-05-03 20:15:00 86 mm[Hg] [facility] Heart rate 2022-05-03 20:15:00 73 /min [facility] Body height 2022-05-03 20:15:00 182.9 cm [facility] Body weight 2022-05-03 20:15:00 113.399 kg [facility] BMI 2022-05-03 20:15:00 33.91 kg/m2 [facility] Oxygen saturation in Arterial blood by Pulse oximetry 2022-05-03 20:15:00 97 /min [facility] Procedures Procedure Date / Time Performed Performing Clinician Source AMYLASE 2023-08-11 15:20:00 [facility] 2023-08-11 15:20:00 Luis Harrison Un [facility] TROPONIN I 2023-08-11 15:20:00 [facility] COMP. METABOLIC PANEL ([id number]) 2023-08-11 15:20:00 Luis Harrison [facility] CBC WITH DIFF 2023-08-11 15:20:00 Luis [facility] 2023-08-11 15:20:00 Luis Harrison Un [facility] CONSENT/REFUSAL FOR DIAGNOSIS AND TREATMENT 2023-08-11 14:13:54 Doctor Unassigned, Blevins [facility] AUTHORIZATION FOR RELEASE OF PHI 2022-09-27 05:01:00 Doctor Unassigned, Blevins [facility] ASSIGNMENT OF BENEFITS 2022-05-03 18:40:00 Docto r Unassigned, Blevins [facility] Encounters Start Date/Time End Date/Time Encounter Type Admission Type Attending Clinicians Care Facility Care Department Encounter ID Source 2023-08-11 09:25:00 2023-08-11 11:28:00 Emergency X LUIS HARRISON [facility] ERT [id number] [facility] 2023-08-11 09:25:00 2023-08-11 11:28:00 Emergency Luis Harrison [facility] 1.2.840.114 350.1.13.10 4.2.7.2.686 [id number] [facility] 2022-09-27 00:00:00 2022-09-27 00:00:00 Orders Only Doctor Unassigned, Blevins [facility] 1.2.840.114 350.1.13.10 4.2.7.2.686 [id number] [facility] 2022-08-02 10:30:00 2022-08-02 10:30:00 Outpatient Yuniel BONNER [facility]ACHERY [facility] [id number] [facility] 2022-05-15 00:00:00 2022-05-15 00:00:00 Outpatient AMBREEN_[facility]AR [facility] [id number] [facility] 2022-05-06 00:00:00 2022-05-06 00:00:00 Outpatient AMBREEN_CAROLIN [facility] [id number] [facility] 2022-05-03 14:20:00 2022-05-03 15:19:18 [facility] 1.2.840.114 350.1.13.10 4.2.7.2.686 [id number] [facility] 2022-05-03 14:20:00 2022-05-03 15:19:18 Outpatient DEXTER LAUREN [facility] [id number] [facility] 2022-05-03 00:00:00 2022-05-03 00:00:00 Orders Only Doctor Unassigned, Blevins [facility] 1.2.840.114 350.1.13.10 4.2.7.2.686 [id number] [facility] 2022-04-04 00:00:00 2022-04-04 00:00:00 Outpatient AMBREEN_FAR [facility] [id number] [facility] 2022-03-11 00:00:00 2022-03-11 00:00:00 Outpatient AMBREEN_FAR [facility] [facility] [id number] [facility] 2022-02-18 00:00:00 2022-02-18 00:00:00 Outpatient AMBREEN_CAROLIN [facility] [id number] [facility] 2022-01-15 00:00:00 2022-01-15 00:00:00 Outpatient AMBREEN_CAROLIN [facility] [id number] [facility] 2022-01-14 00:00:00 2022-01-14 00:00:00 Outpatient AMBREEN_CAROLIN [facility] [id number] [facility] 2021-12-26 00:00:00 2021-12-26 00:00:00 Outpatient AMBREEN_CAROLIN [facility] [id number] [facility] 2021-11-28 09:25:00 2021-11-28 09:25:00 Outpatient AMBREEN_CAROLIN [facility] [id number] [facility] 2021-11-22 09:52:00 2021-11-22 09:52:00 Outpatient AMBREEN_CAROLIN [facility] [id number] [facility] 2021-11-21 09:00:00 2021-11-21 09:00:00 Outpatient AMBREEN_CAROLIN [facility] [id number] [facility] 2021-11-20 08:33:00 2021-11-20 08:33:00 Outpatient AMBREEN_CAROLIN [facility] [id number] [facility] 2021-11-19 09:58:00 2021-11-19 09:58:00 Outpatient AMBREEN_CAROLIN [facility] [id number] [facility] 2021-11-13 09:57:00 2021-11-13 09:57:00 Outpatient AMBREEN_CAROLIN [facility] [id number] [facility] 2021-11-12 11:00:00 2021-11-12 11:00:00 Outpatient AMBREEN_CAROLIN [facility] [id number] [facility] 2021-11-11 10:58:00 2021-11-11 10:58:00 Outpatient AMBREEN_CAROLIN [facility] [id number] [facility] 2021-11-05 03:10:00 2021-11-05 03:10:00 Outpatient AMBREEN_CAROLIN [facility] [id number] [facility] 2021-10-31 09:51:00 2021-10-31 09:51:00 Outpatient AMBREEN_CAROLIN [facility] [id number] [facility] 2021-10-23 02:33:00 2021-10-23 02:33:00 Outpatient AMBREEN_CAROLIN [facility] [id number] [facility] 2021-10-22 05:19:00 2021-10-22 05:19:00 Outpatient AMBREEN_CAROLIN [facility] [id number] [facility] 2021-10-16 03:49:00 2021-10-16 03:49:00 Outpatient AMBREEN_CAROLIN [facility] [id number] [facility] 2021-10-15 04:17:00 2021-10-15 04:17:00 Outpatient AMBREEN_CAROLIN [facility] [id number] [facility] 2021-10-14 02:47:00 2021-10-14 02:47:00 Outpatient AMBREEN_CAROLIN [facility] [id number] [facility] 2021-10-08 01:50:00 2021-10-08 01:50:00 Outpatient AMBREEN_CAROLIN [facility] [id number] [facility] 2021-10-07 12:02:00 2021-10-07 12:02:00 Outpatient AMBREEN_CAROLIN [facility] [id number] [facility] 2021-10-01 01:52:00 2021-10-01 01:52:00 Outpatient AMBREEN_CAROLIN [facility] [id number] [facility] 2021-09-30 11:29:00 2021-09-30 11:29:00 Outpatient AMBREEN_CAROLIN [facility] [id number] [facility] 2021-09-27 10:13:00 2021-09-27 10:13:00 Outpatient AMBREEN_CAROLIN [facility] [id number] [facility] 2021-09-24 04:41:00 2021-09-24 04:41:00 Outpatient AMBREEN_CAROLIN [facility] [id number] [facility] 2021-09-20 08:51:00 2021-09-20 08:51:00 Outpatient AMBREEN_CAROLIN [facility] [id number] [facility] 2021-09-19 02:32:00 2021-09-19 02:32:00 Outpatient AMBREEN_CAROLIN [facility] [id number] [facility] 2021-09-18 11:55:00 2021-09-18 11:55:00 Outpatient AMBREEN_CAROLIN [facility] [id number] [facility] 2020-08-23 17:37:04 2020-08-23 17:37:04 Inpatient HCAMN HCAMN [id number] [facility] 2020-07-28 02:16:00 2020-07-28 02:16:00 Outpatient REBELREEN_CAROLIN [facility] [id number] [facility] 2020-07-27 12:34:00 2020-07-27 12:34:00 Outpatient REBELREEN_CAROLIN [facility] [id number] [facility] Results Test Description Test Time Test Comments Results Result Co mments Source [facility] 15:45:31* Test Item Value Reference Range Interpretation Comme nts ANDREA (test code = 5517406794) 66 U/L 35-110 Lab Interpretation (test cod e = 30713-7) Normal [facility]24-[facility] 15:45:31* Test Item Value Reference Range Interpretation Comme nts LIPASE (test code = 7536521029) 173 U/L 0-220 Lab Interpretation (test cod e = 66931-9) Normal [facility] METABOLIC PANEL (29597)2023-08-11 15:45:30* Test Item Value Reference Range Interpretation Comme nts NA (test code = 0678780537) 137 mmol/L 135-145 K (test code = 1886571150) 4.9 mmol/L 3.5-5.0 Slight hemolysis CL (test code = 0251457834) 105 mmol/L 98-108 CO2 TOTAL (test code = 1248489475) 24 mmol/L 23-31 AGAP (test code = 6103447992) 8 2-16 BUN (test code = 3388969813) 20 mg/dL 7-23 Slight hemolysis GLUCOSE (test code = 5328780730) 146 mg/dL 70-110 H CREATININE (test code = 2160-0) 1.00 mg/dL 0.60-1.25 TOTAL BILI (test code = 6003834269) 1.1 mg/dL 0.1-1.1 CALCIUM (test code = 1943522495) 9.3 mg/dL 8.6-10.6 T PROTEIN (test code = 4872879663) 7.6 g/dL 6.3-8.2 ALBUMIN (test code = 4262103301) 4.7 g/dL 3.5-5.0 ALK PHOS (test code = 0676674783) 65 U/L 34-122 Slight hemolysis ALTv (test code = 1742-6) 107 U/L 5-50 H AST(SGOT) (test code = 0783960263) 58 U/L 13-40 H Slight hemolysis eGFR (test code = 68913-5) 92.3 mL/min/1.73m2 CKD-EPI eGFR (2020). Assuming creatinine has been stable day-to-day for at least three months, the eGFR indicates Category G1 (>= 90 mL/min/1.73 m2) Lab Interpretation (test code = 40603-9) Abnormal [facility] WITH QXPD6809-70-76 15:31:08* Test Item Value Reference Range Interpretation Comme nts WBC (test code = 6690-2) 6.79 4.20-10.70 RBC (test code = 789-8) 5.04 4.26-5.52 HGB (test code = 718-7) 16.5 g/dL 12.2-16.4 H HCT (test code = 4544-3) 47.5 % 38.4-49.3 MCV (test code = 787-2) 94.2 fL 81.7-95.6 MCH (test code = 785-6) 32.7 pg 26.1-32.7 MCHC (test code = 786-4) 34.7 g/dL 31.2-35.0 RDW-SD (test code = 38402-8) 42.1 fL 38.5-51.6 RDW-CV (test code = 788-0) 12.2 % 12.1-15.4 PLT (test code = 777-3) 246 150-328 MPV (test code = 35099-3) 10.8 fL 9.8-13.0 NRBC/100 WBC (test code = 7657953640) 0.0 0.0-10.0 NRBC x10^3 (test code = 1292074453) See_Comment [Automated messa ge] The system which generated this result transmitted reference range: 10*3/?L. The reference range was not used to interpret this result as normal/abnormal. GRAN MAT (NEUT) % (test code = 770-8) 52.8 % IMM GRAN % (test code = 9706102807) 0.60 % LYMPH % (test code = 736-9) 34.6 % MONO % (test code = 5905-5) 8.2 % EOS % (test code = 713-8) 3.1 % BASO % (test code = 706-2) 0.7 % GRAN MAT x10^3(ANC) (test code = 0289521110) 3.58 10*3/uL 1.99-6.95 IMM GRAN x10^3 (test code = 1487307425) 0.04 10*3/uL 0.00-0.06 LYMPH x10^3 (test code = 731-0) 2.35 10*3/uL 1.09-3.23 MONO x10^3 (test code = 742-7) 0.56 10*3/uL 0.36-1.02 EOS x10^3 (test code = 711-2) 0.21 10*3/uL 0.06-0.53 BASO x10^3 (test code = 704-7) 0.05 10*3/uL 0.01-0.09 Lab Interpretation (test code = 22042-8) Abnormal [facility] [id number] 19:15:00* Test Item Value Reference Range Interpretation Comme nts COVID 19 INHOUSE AG (test co de = HENOR83OYGS) POSITIVE NEGATIVE A REPEATED TEST --CONFLICTING RESULTS-SPOKE TO BRANDON FORRECOLLECT.-LAB-ALB Notes Date/Time Note Provider Source 2023-08-11 11:28:00 TWoJ8e06UgL4ZsIfcAlnmHTBxwcpn0/2WAbuJKV J8j/kUcOrzMQlXICsu60wXN1z0398-20-79Z57: 28:00 Pt's was in recovery from surgery and ready to be let go home. Pt signed out AMA. Form signed provider informed. 43496-6Exjqdtnxp department PmryJF9132-83-16Y75:41:48[facility] NoteTXT1.2.840.121260.1.13.104.2.7.2.72 7879|[id number] for patient ouow06448-7RvtcBPTSAUAZEFSCxpeaejcu C-CDA narrative [id number] H Wark RN[address] JjxiChbjtfzzbInflzaejmHCNA2350628446LKP ZRCBLSSYCCYCDOUZYAH0111-53-17W39:41:481 .2.840.850452.1.72.3.15|1.2.840.443370. 1.13.104.2.7.2.727879_[id number] Corine Scott RN [facility] 2023-08-11 09:31:13 CEKQtrZlxVEfWczs/jNkYWYYR2PtU7y7sUUXfhf xUT2NDLCIydbPw5zYS+KRCk1o3795-89-70B76: 31:13 Power Snider is a 48 year old male Patient arrives via personal means with complaint of stomach swelling, "I feel impacted again, I am super tired." History of present illness includes diverticulitis and colitis. Reports nausea and constipation. Patient is alert and oriented times X4, even and unlabored respirations visualized. Patient resting in stretcher. Patient rates pain pressure 4/10. Abdomen with bowel sounds x4 quadrants, soft and mid epigastric tenderness last BM 08/10/2023 8 am, last PO intake 0645 am . Patient reports decreased urination complaint with voiding. Patient resting in stretcher. Bed at lowest level, side rail up X 2, call light within reach. Placed on monitors and given warm blanket. Will continue with plan of care. 96859-0Ibisohfhj department RjbiOC6632-52-51I76:38:00[facility] NoteTXT1.2.840.565478.1.13.104.2.7.2.72 7879|[id number] for patient tixx89717-9LhniQKEHXEZMVURExvmeyubf C-CDA narrative text[address] LmxvEkkruzepgIlirigmqnLRCR5383065447ARG SPSCJXQFLWZJVTMPCMS3325-57-39Y58:38:001 .2.840.675528.1.72.3.15|1.2.840.074816. 1.13.104.2.7.2.727879_[id number] [facility] 2023-08-11 09:20:45 /OAPdulECm4fdePg6faM4rB75ATJ4D4NjrNkGUt Le3x5+WL18dx7oOrqNoceIjTQ0542-61-16S64: 20:45 Power Snider is a 48 year old male presents to ED c/o "I've been having problems going to the bathroom. You see I got the Covid back in 08/13 and it messed with my head and my stomach. When I had the covid my stomach is breaking down what it needs to break down. I had some H-pylori in my gut and they gave me antibiotics but I had that bacteria for like a year because the speciality clinic dropped the ball. I also have RA in my blood, my cholesterol is high too. I just don't feel like. I am impacted and I haven't used the restroom since yesterday morning. Something is going on with my something and no one has caught it. No one has seen anything. My just had surgery and so I've been awake since 129 this morning. Every time I go to the [place] they just send me in a la posta. I"m not even trying to blame it on the Covid, it messed a lot of people up. But when I had it and my mom , my stomach just hasn't been the same since 2020.". Pt is aox4 with gcs 15 skin warm and dry resp even and unlabored. NAD Noted. Pt to room for eval. 46925-0Gzxprzbra department Triage dhhoQZ0451-86-64B65:26:44[facility] Triage noteTXT1.2.840.793648.1.13.104.2.7.2.72 7879|[id number] for patient vfps86619-1Fhvvjqfjm department NoteLNNARRATIVEFormatted C-CDA narrative [id number] Nini RNUT[address] RhdlGfojwxkanAdwqddyncGOWG1690954727HLW SMSMXZFWNORLMPRVVCQ7131-62-76E09:26:441 .2.840.234396.1.72.3.15|1.2.840.184032. 1.13.104.2.7.2.727879_[id number] Francoise Alvarez RN [facility] 2020-08-23 17:42:00 VWsjjmzktzk98020807t6K/1BVb/TG+/pK2ZSDr 5VssXeb0O4fL3IPNyavoxpLyYetyNnLLGPM1LQ/ zJUSI9751-56-80J35:42:00 [facility] (PHELPS HEALTHEMERGENCY PROVIDER REPORTREPORT#:[id number] REPORT STATUS: SignedDATE:08/23/20 TIME: 1741 PATIENT: POWER SNIDER UNIT #: [id number]#: [id number] ROOM/BED:AGE: 45 SEX: M PCP PHYS: No Primary or Family PhysicianSERVICE AUTHOR: Bart Oh NP * ALL edits or amendments must be made on the electronic/computer document * HPI-Eye Problem Free Text HPI NotesFree Text HPI Notes45 y/o m a/o x 4 c/o redness to r eye sclera, pt advised recently tx for conjunctivitis to left and and now experiencing similar s/s to left eye. pt admitted to exposure to covid pos pt. pt denies any sob or chest pain or cough or loss of sense of taste or smell. denies any change in visual aquity. GeneralConfirmed Patient YesPatient Type Existing patientInitial Greet Date/Time 08/23/201730 PresentationChief Complaint Eye R affected Risk-Eye Problem Risk Stratification)( Eye Injury - Adult Risk factors reviewed Review of Systems ROS StatementsAll systems rev neg except as marked. Focused Review of SystemsEyesReports: Redness R. Past Medical History - AdultStated Complaint EYE SWELLING RECENT EXPOSURE TO COVIDAllergiesCoded Allergies:No Known Allergies (08/23/20) Physical Exam Vital SignsVital SignsFirst Documented: Result Date Time Pulse Ox 97 08/23 1726 B/P 160/113 08/23 1726 B/P Mean 128 08/23 1726 O2 Delivery Room air 08/23 172 Temp 36.7 08/23 172 Pulse 90 08/23 1726 Resp 18 08/23 172 Last Documented: Result Date Time Pulse Ox 97 08/23 1726 B/P 160/113 08/23 1726 B/P Mean 128 08/23 1726 O2 Delivery Room air 08/23 1726 Temp 36.7 08/23 1726 Pulse 90 08/23 1726 Resp 18 08/23 1726 Review of Vital Signs Reviewed Focused PEGeneral/Const General/Const Awake, Alert, No acute distress, Well appearing, Well developed, Well hydrated, Well nourished, Cooperative, Not toxic appearingMS Head Head Atraumatic, NormocephalicEyes Eyes Atraumatic, PERRL, EOMI, No nystagmus, No periorbital swelling, No photophobia, No scleral icterus, Conjunctiva NL, Cornea clear, No corneal abrasion, Visual acuity NL Conjunctiva/Sclera Injected R. Ears/Nose/Throat Ears/Nose/Throat Atraumatic, Airway patent, Mucous membranes moist, Pharynx NL, No peritonsillar abscess, No pooling of secretions, No trismus, Tympanic membs NL, Ext aud canal NL, Mastoid area NL, Nose exam NL, No sinus tenderness, No facial swelling, Gums/dentition NLSkin Skin Atraumatic, Color NL, No rash, Warm, Dry, Intact, Turgor NL, No swellingNeurologic Neurologic Oriented X3, Speech NL, No motor deficits, No sensory deficits, CNII - XII intact, Reflexes equal bilat, Cerebellar NL, Memory NL, Gait NL Interpretation Diagnostics Lab Results InterpretationResultsLaboratory Tests: 08/24 1839 Serology SARS-CoV-2 Ag (Rapid) (NEGATIVE) POSITIVE H Re-Evaluation MDM Re-Evaluation/ProgressRe-Evaluation/Pro higinio Time of Re-Eval 1914 Patient Discharge Departure Vital Signs/ConditionVital SignsFirst Documented: Result Date Time Pulse Ox 97 08/23 1726 B/P 160/113 08/23 1726 B/P Mean 128 08/23 1726 O2 Delivery Room air 08/23 172 Temp 36.7 08/23 172 Pulse 90 08/23 172 Resp 18 08/23 1725 Last Documented: Result Date Time Pulse Ox 97 08/23 1726 B/P 160/113 08/23 1726 B/P Mean 128 08/23 1726 O2 Delivery Room air 08/23 172 Temp 36.7 08/23 172 Pulse 90 08/23 172 Resp 18 08/23 1725 All vital signs available at the time of this entry have been reviewed. Condition Stable Clinical ImpressionClinical ImpressionPrimary Impression: COVID-19Secondary Impressions: Conjunctivitis Disposition DecisionDischarge )( Discharged to Home Yes )( Time 1914 )( Date 08/23/20 Discharge/Care Plan(Auto) PrescriptionsCurrent Visit ScriptsNEOMY/POLY B/HYDROCORT 0.35%-10,000U-1%/ML (CORTISPORIN OPHTH) 2 DROP EACH EYE Q4H NEOMY/POLY B/HYDROCORT 0.35%-10,000U-1%/ML (CORTISPORIN OPHTH) 2 DROP EACHEYE Q4H #7.5 ML Patient Instructions COVID-19 Home Care, ED Conjunctivitis, NonspecificReferrals PRIMARY CARE Discharge NoteI have spoken with the patient and/or caregivers. I have explained the patient'scondition, diagnoses and treatment plan based on the information available to meat this time. I have answered the patient's and/or caregiver's questions and addressed any concerns. The patient and/or caregivers have as good an understanding of the patient's diagnosis, condition and treatment plan as can beexpected at this point. The vital signs have been stable. The patient's condition is stable and appropriate for discharge from the emergency department. The patient will pursue further outpatient evaluation with the primary care physician or other designated or consulting physician as outlined in the discharge instructions. The patient and/or caregivers are agreeable to this planof care and follow-up instructions have been explained in detail. The patient and/or caregivers have received these instructions in written format and have expressed an understanding of the discharge instructions. The patient and/or caregivers are aware that any significant change in condition or worsening of symptoms should prompt an immediate return to this or the closest emergency department or a call to 911. at 195PT #:[id number] OF REPORTEDEmergen department [id number]:42:00E.[id number] for patient [id number]:54:45 [facility] 2020-08-23 17:42:00 [id number]+[id number] [id number]:42:00 [facility] (PHELPS HEALTHEMERGENCY PROVIDER REPORTREPORT#:[id number] REPORT STATUS: SignedDATE:08/23/20 TIME: 1741 PATIENT: POWER SNIDER UNIT #: [id number]#: [id number] ROOM/BED:AGE: 45 SEX: M PCP PHYS: No Primary or Family PhysicianSERVICE AUTHOR: Bart Oh NP * ALL edits or amendments must be made on the electronic/computer document * Bart Oh 08/23/20 174:HPI-Eye Problem Free Text HPI NotesFree Text HPI Notes45 y/o m a/o x 4 c/o redness to r eye sclera, pt advised recently tx for conjunctivitis to left and and now experiencing similar s/s to left eye. pt admitted to exposure to covid pos pt. pt denies any sob or chest pain or cough or loss of sense of taste or smell. denies any change in visual aquity. GeneralConfirmed Patient YesPatient Type Existing patientInitial Greet Date/Time 08/23/20 173 PresentationChief Complaint Eye R affected Risk-Eye Problem Risk Stratification)( Eye Injury - Adult Risk factors reviewed Review of Systems ROS StatementsAll systems rev neg except as marked. Focused Review of SystemsEyesReports: Redness R. Past Medical History - AdultStated Complaint EYE SWELLING RECENT EXPOSURE TO COVIDAllergiesCoded Allergies:No Known Allergies (08/23/20) Physical Exam Vital SignsVital SignsFirst Documented: Result Date Time Pulse Ox 97 08/23 1726 B/P 160/113 08/23 1726 B/P Mean 128 08/23 1726 O2 Delivery Room air 08/23 172 Temp 36.7 08/23 172 Pulse 90 08/23 1726 Resp 18 08/23 172 Last Documented: Result Date Time Pulse Ox 97 08/23 1726 B/P 160/113 08/23 1726 B/P Mean 128 08/23 1726 O2 Delivery Room air 08/23 1726 Temp 36.7 08/23 1726 Pulse 90 08/23 1726 Resp 18 08/23 1726 Review of Vital Signs Reviewed Focused PEGeneral/Const General/Const Awake, Alert, No acute distress, Well appearing, Well developed, Well hydrated, Well nourished, Cooperative, Not toxic appearingMS Head Head Atraumatic, NormocephalicEyes Eyes Atraumatic, PERRL, EOMI, No nystagmus, No periorbital swelling, No photophobia, No scleral icterus, Conjunctiva NL, Cornea clear, No corneal abrasion, Visual acuity NL Conjunctiva/Sclera Injected R. Ears/Nose/Throat Ears/Nose/Throat Atraumatic, Airway patent, Mucous membranes moist, Pharynx NL, No peritonsillar abscess, No pooling of secretions, No trismus, Tympanic membs NL, Ext aud canal NL, Mastoid area NL, Nose exam NL, No sinus tenderness, No facial swelling, Gums/dentition NLSkin Skin Atraumatic, Color NL, No rash, Warm, Dry, Intact, Turgor NL, No swellingNeurologic Neurologic Oriented X3, Speech NL, No motor deficits, No sensory deficits, CNII - XII intact, Reflexes equal bilat, Cerebellar NL, Memory NL, Gait NL Interpretation Diagnostics Lab Results InterpretationResultsLaboratory Tests: 08/24 1839 Serology SARS-CoV-2 Ag (Rapid) (NEGATIVE) POSITIVE H Re-Evaluation MDM Re-Evaluation/ProgressRe-Evaluation/Pro higinio Time of Re-Eval 1914 Patient Discharge Departure Vital Signs/ConditionVital SignsFirst Documented: Result Date Time Pulse Ox 97 08/23 1726 B/P 160/113 08/23 1726 B/P Mean 128 08/23 1726 O2 Delivery Room air 08/23 172 Temp 36.7 08/23 172 Pulse 90 08/23 172 Resp 18 08/23 172 Last Documented: Result Date Time Pulse Ox 97 08/23 1726 B/P 160/113 08/23 1726 B/P Mean 128 08/23 1726 O2 Delivery Room air 08/23 172 Temp 36.7 08/23 172 Pulse 90 08/23 172 Resp 18 08/23 1725 All vital signs available at the time of this entry have been reviewed. Condition Stable Clinical ImpressionClinical ImpressionPrimary Impression: COVID-19Secondary Impressions: Conjunctivitis Disposition DecisionDischarge )( Discharged to Home Yes )( Time 1914 )( Date 08/23/20 Discharge/Care Plan(Auto) PrescriptionsCurrent Visit ScriptsNEOMY/POLY B/HYDROCORT 0.35%-10,000U-1%/ML (CORTISPORIN OPHTH) 2 DROP EACH EYE Q4H NEOMY/POLY B/HYDROCORT 0.35%-10,000U-1%/ML (CORTISPORIN OPHTH) 2 DROP EACHEYE Q4H #7.5 ML Patient Instructions COVID-19 Home Care, ED Conjunctivitis, NonspecificReferrals PRIMARY CARE Discharge NoteI have spoken with the patient and/or caregivers. I have explained the patient'scondition, diagnoses and treatment plan based on the information available to meat this time. I have answered the patient's and/or caregiver's questions and addressed any concerns. The patient and/or caregivers have as good an understanding of the patient's diagnosis, condition and treatment plan as can beexpected at this point. The vital signs have been stable. The patient's condition is stable and appropriate for discharge from the emergency department. The patient will pursue further outpatient evaluation with the primary care physician or other designated or consulting physician as outlined in the discharge instructions. The patient and/or caregivers are agreeable to this planof care and follow-up instructions have been explained in detail. The patient and/or caregivers have received these instructions in written format and have expressed an understanding of the discharge instructions. The patient and/or caregivers are aware that any significant change in condition or worsening of symptoms should prompt an immediate return to this or the closest emergency department or a call to 911. Madelyn Espinoza MD 08/24/20 0825:Patient Discharge Departure Supervising Physician Note MidLv Saw Pt AloneI have reviewed the PA/WELL TREATMENT OFFSIDER's note and plan of care. I was available for consultation as needed at all times during the patient's visit in the emergency department. I agree with the clinical impression, plan and disposition. 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 pt admitted to exposure to covid pos pt. pt denies any sob or chest pain or cough or loss of sense of taste or smell. denies any change in visual aquity. GeneralConfirmed Patient YesPatient Type Existing patientInitial Greet Date/Time 08/23/20 1731 PresentationChief Complaint Eye R affected Risk-Eye Problem Risk Stratification)( Eye Injury - Adult Risk factors reviewed Review of Systems ROS StatementsAll systems rev neg except as marked. Focused Review of SystemsEyesReports: Redness R. Past Medical History - AdultStated Complaint EYE SWELLING RECENT EXPOSURE TO COVIDAllergiesCoded Allergies:No Known Allergies (08/23/20) Physical Exam Vital SignsVital SignsFirst Documented: Result Date Time Pulse Ox 97 08/23 1726 B/P 160/113 08/23 1726 B/P Mean 128 08/23 1726 O2 Delivery Room air 08/23 172 Temp 36.7 08/23 1726 Pulse 90 08/23 1726 Resp 18 08/23 1726 Last Documented: Result Date Time Pulse Ox 97 08/23 1726 B/P 160/113 08/23 1726 B/P Mean 128 08/23 1726 O2 Delivery Room air 08/23 1726 Temp 36.7 08/23 1726 Pulse 90 08/23 1726 Resp 18 08/23 1726 Review of Vital Signs Reviewed Focused PEGeneral/Const General/Const Awake, Alert, No acute distress, Well appearing, Well developed, Well hydrated, Well nourished, Cooperative, Not toxic appearingMS Head Head Atraumatic, NormocephalicEyes Eyes Atraumatic, PERRL, EOMI, No nystagmus, No periorbital swelling, No photophobia, No scleral icterus, Conjunctiva NL, Cornea clear, No corneal abrasion, Visual acuity NL Conjunctiva/Sclera Injected R. Ears/Nose/Throat Ears/Nose/Throat Atraumatic, Airway patent, Mucous membranes moist, Pharynx NL, No peritonsillar abscess, No pooling of secretions, No trismus, Tympanic membs NL, Ext aud canal NL, Mastoid area NL, Nose exam NL, No sinus tenderness, No facial swelling, Gums/dentition NLSkin Skin Atraumatic, Color NL, No rash, Warm, Dry, Intact, Turgor NL, No swellingNeurologic Neurologic Oriented X3, Speech NL, No motor deficits, No sensory deficits, CNII - XII intact, Reflexes equal bilat, Cerebellar NL, Memory NL, Gait NL Interpretation Diagnostics Lab Results InterpretationResultsLaboratory Tests: 08/24 1839 Serology SARS-CoV-2 Ag (Rapid) (NEGATIVE) POSITIVE H Re-Evaluation MDM Re-Evaluation/ProgressRe-Evaluation/Pro higinio Time of Re-Eval 1914 Patient Discharge Departure Vital Signs/ConditionVital SignsFirst Documented: Result Date Time Pulse Ox 97 08/23 1726 B/P 160/113 08/23 1726 B/P Mean 128 08/23 1726 O2 Delivery Room air 08/23 1726 Temp 36.7 08/23 172 Pulse 90 08/23 1726 Resp 18 08/23 172 Last Documented: Result Date Time Pulse Ox 97 08/23 1726 B/P 160/113 08/23 1726 B/P Mean 128 08/23 1726 O2 Delivery Room air 08/23 1726 Temp 36.7 08/23 1726 Pulse 90 08/23 1726 Resp 18 08/23 1726 All vital signs available at the time of this entry have been reviewed. Condition Stable Clinical ImpressionClinical ImpressionPrimary Impression: COVID-19Secondary Impressions: Conjunctivitis Disposition DecisionDischarge )( Discharged to Home Yes )( Time 1914 )( Date 08/23/20 Discharge/Care Plan(Auto) PrescriptionsCurrent Visit ScriptsNEOMY/POLY B/HYDROCORT 0.35%-10,000U-1%/ML (CORTISPORIN OPHTH) 2 DROP EACH EYE Q4H NEOMY/POLY B/HYDROCORT 0.35%-10,000U-1%/ML (CORTISPORIN OPHTH) 2 DROP EACHEYE Q4H #7.5 ML Patient Instructions COVID-19 Home Care, ED Conjunctivitis, NonspecificReferrals PRIMARY CARE Discharge NoteI have spoken with the patient and/or caregivers. I have explained the patient'scondition, diagnoses and treatment plan based on the information available to meat this time. I have answered the patient's and/or caregiver's questions and addressed any concerns. The patient and/or caregivers have as good an understanding of the patient's diagnosis, condition and treatment plan as can beexpected at this point. The vital signs have been stable. The patient's condition is stable and appropriate for discharge from the emergency department. The patient will pursue further outpatient evaluation with the primary care physician or other designated or consulting physician as outlined in the discharge instructions. The patient and/or caregivers are agreeable to this planof care and follow-up instructions have been explained in detail. The patient and/or caregivers have received these instructions in written format and have expressed an understanding of the discharge instructions. The patient and/or caregivers are aware that any significant change in condition or worsening of symptoms should prompt an immediate return to this or the closest emergency department or a call to 911. Madelyn Espinoza MD 08/24/20 0825:Interpretation Diagnostics Lab Results Interpretation Lab StatementLaboratory studies reviewed and considered in the medical decision-making. Patient Discharge Departure Supervising Physician Note MidLv Saw Pt AloneI have reviewed the PA/WELL TREATMENT OFFSIDER's note and plan of care. I was available for consultation as needed at all times during the patient's visit in the emergency department. I agree with the clinical impression, plan and disposition. at 1954 at 1017RPT #:[id number] OF REPORTMission Trail Baptist Hospital department [id number]:42:00E.[id number] for patient [id number]:17:22 [facility]
--- NOTE | 2023-08-30 13:57 | RAD REPORT ---
EXAM DESCRIPTION: RAD - Chest Single View - 08/30/2023 1:49 pm CLINICAL HISTORY: CHEST PAIN COMPARISON: Chest Single View dated 02/02/2017 FINDINGS: Lines: None. Lungs: No evidence of edema or pneumonia. Pleural: No significant pleural effusions or pneumothorax. Cardiac: The heart size is within normal limits. Mediastinum: Within normal limits. Bones: No acute fractures. Other: None IMPRESSION: No acute cardiopulmonary disease.
[2023-08-30] MEDS ORDERED: MORPHINE 4 MG/ML SYR ONE (14:11)
[2023-08-30] MEDS ORDERED: ONDANSETRON 4 MG/2 ML VIAL ONE (14:11)
[2023-08-30 14:15] LABS: Absolute Basophils 0.1 K/uL (0-0.5); Absolute Eosinophils 0.3 K/uL (0-0.5); Absolute Lymphocytes (CBC) 2.1 K/uL (0.7-4.9); Absolute Monocytes 0.7 K/uL (0.1-1.3); Absolute Neutrophil 4.9 K/uL (1.8-8.0); Basophils % 0.7 % (0-1.3); Eosinophils % 4.3 % (0-4.4); Hemoglobin 15.7 g/dL (13.6-17.9); Lymphocytes % 25.8 % (15.3-44.8); MCHC 34.8 g/dL (32.0-36.0); MCV 94.9 fL (80-100); MPV 8.6 fL (7.6-11.3); Monocytes % 9.1 % (3.3-12.3); Neutrophils % 60.1 % (41.7-73.7); Platelets 246 thou/uL (152-406); RBC Red Blood Cell Count 4.75 M/uL (4.33-5.43); Red Cell Distribution Width 13.1 % (12.1-15.2)
[2023-08-30 14:39] LABS: Anion Gap 8.2 mEq/L (5.0-15.0); Potassium 4.2 mEq/L (3.5-5.1); Troponin High Sensitivity 9.7 pg/mL (<58.9)
[2023-08-30] MEDS ORDERED: HYDROCODONE/APAP 10/325 TAB ONE (15:49)
[2023-08-30] MEDS ORDERED: KETOROLAC 30 MG/ML INJ ONE (15:49)
--- NOTE | 2023-08-30 15:50 | EDPHYS ---
Physician Documentation [facility] Name: Power Castillo Age: 48 yrs Sex: Male : 1975 Arrival Date: 08/30/2023 Time: 12:40 Bed 19 Private MD: ED Physician Andrew Negrete HPI: 08/29 16:58 This 48 yrs old Male presents to ER via Ambulatory with complaints of Toothache, High kb Blood Pressure. 16:58 Pt is a 48 year old male who presents with dental pain that started 4 days ago. States kb he was seen at [facility] yesterday and put on clindamycin for infection. States he has an appt with the dentist on Friday but came in for something for pain. Also reports his blood pressure has been high for a while, but higher than normal over the past couple of days. Denies headache, dizziness, chest pain. Historical: - Allergies: 13:05 No Known Allergies; nj1 - PMHx: 13:05 Degenerative disc disease; osteoarthritis; spinal stenosis; nj1 - PSHx: 13:05 Cholecystectomy; nj1 13:06 Hernia repair; nj1 - Immunization history:: Client reports receiving the 2nd dose of the Covid vaccine. - Infectious Disease History:: Denies. - Social history:: Smoking status: Patient reports the use of cigarette tobacco products, smokes one pack cigarettes per day. ROS: 17:00 Constitutional: As per HPI kb Exam: 17:00 Constitutional: This is a well developed, well nourished patient who is awake, alert, kb and in no acute distress. Head/Face: Normocephalic, atraumatic. ENT: Moist Mucous membranes Cardiovascular: Regular rate Respiratory: Respirations even and unlabored. No increased work of breathing. Talking in full sentences Abdomen/GI: Soft, non-tender. No distention Skin: Warm, dry with normal turgor. Normal color. MS/ Extremity: Pulses equal, no cyanosis. Neurovascular intact. Full, normal range of motion. Neuro: Awake and alert, GCS 15, oriented to person, place, time, and situation. Moves all extremities. Normal gait. 17:00 ECG was reviewed by the Attending Physician. 17:00 ENT: Dental exam: gum swelling, that is mild, specifically in the lower left second kb molar (#18), lower left first molar (#19) and lower left second bicuspid (#20), pain, that is moderate, specifically in the lower left second molar (#18), lower left first molar (#19) and lower left second bicuspid (#20), Vital Signs: 13:01 BP 186 / 127; Pulse 62; Resp 18; Temp 98.4(TE); Pulse Ox 100% ; Weight 121.56 kg; nj1 Height 6 ft. 0 in. ; Pain 10/10; 15:06 BP 155 / 107; Pulse 50; Resp 18; Pulse Ox 96% on R/A; ph 16:16 BP 166 / 101; Pulse 54; Resp 18; Temp 98; Pulse Ox 99% on R/A; ph 13:01 Body Mass Index 36.35 (121.56 kg, 182.88 cm) nj1 13:01 Pain Scale: Adult nj1 MDM: 13:12 Patient medically screened. kb 17:01 Differential diagnosis: dental caries, gingivitis, dental abscess, pericoronitis. Data kb reviewed: vital signs, nurses notes. Historians other than the Patient: Spouse/Significant Other: . Counseling: I had a detailed discussion with the patient and/or guardian regarding the historical points, exam findings, and any diagnostic results supporting the discharge/admit diagnosis, lab results, radiology results, the need for outpatient follow up, a dentist, a family practitioner, to return to the emergency department if symptoms worsen or persist or if there are any questions or concerns that arise at home. 08/29 13:26 Order name: Basic Metabolic Panel; Complete Time: 14:51 kb 08/29 13:26 Order name: CBC with Diff; Complete Time: 14:32 kb 08/29 13:26 Order name: Troponin HS; Complete Time: 14:51 kb 08/29 13:26 Order name: XRAY Chest (1 view); Complete Time: 14:01 kb 08/29 13:26 Order name: Cardiac monitoring; Complete Time: 15:06 kb 08/29 13:26 Order name: EKG - Nurse/Tech; Complete Time: 15:06 kb 08/29 13:26 Order name: IV Saline Lock; Complete Time: 15:06 kb 08/29 13:26 Order name: Labs collected and sent; Complete Time: 15:06 kb 08/29 13:26 Order name: O2 Per Protocol; Complete Time: 15:06 kb 08/29 13:26 Order name: O2 Sat Monitoring; Complete Time: 15:06 kb EC:00 Rate is 50 beats/min. Rhythm is regular. QRS [place] is Normal. OH interval is normal at kb 166 msec. QRS interval is normal at 90 msec. QT interval is normal at 404 msec. Administered Medications: 14:31 Drug: morphine IVP or IV 4 mg IVP once over 4 mins Route: IVP; Infused Over: 4 mins; ph Site: right antecubital; 14:45 Follow up: Response: No adverse reaction; Pain is decreased; RASS: Alert and Calm (0) ph 14:31 Drug: Ondansetron IVP 4 mg IVP once; over 2 minutes Route: IVP; Site: right antecubital;ph 16:15 Follow up: Response: No adverse reaction ph 15:59 Drug: Lefor PO 10 mg-325 mg 1 tabs PO once Route: PO; ph 16:15 Follow up: Response: No adverse reaction; Medication administered at discharge. ph 15:59 Drug: Ketorolac IVP 15 mg IVP once Route: IVP; Site: right antecubital; ph 16:15 Follow up: Response: No adverse reaction ph 15:59 Drug: Clindamycin PO 300 mg PO once Route: PO; ph 16:15 Follow up: Response: No adverse reaction ph Disposition Summary: 08/30/23 15:49 Discharge Ordered Notes: Location: Home kb Condition: Stable kb Diagnosis - Dental infection kb - Elevated blood-pressure reading, without diagnosis of hypertension kb Followup: kb - With: Emergency Department - When: As needed - Reason: Worsening of condition Followup: kb - With: Private Physician - When: 2 - 3 days - Reason: Recheck today's complaints, Continuance of care, Re-evaluation by your physician Discharge Instructions: - Discharge Summary Sheet kb - Hypertension, Adult, Rkto-vo-Rnnw kb - Dental Pain, Pkjh-hh-Homt kb - How to Take Your Blood Pressure, Kwel-wq-Lpsr kb - Dental Abscess, Qjlb-wg-Hkud kb Forms: - Medication Reconciliation Form kb - Thank You Letter kb - Antibiotic Education kb - Prescription Opioid Use kb - Patient Portal Instructions kb - Leadership Thank You Letter kb Prescriptions: - Ibuprofen 800 mg Oral Tablet - take 1 tablet ORAL route every 8 hours As needed take with food; 30 tablet; kb Refills: 0, Product Selection Permitted Signatures: Dispatcher [employer] Yovana Pedersen, CADENC Manda Randolph, RN RN ph Monik Julio RN RN nj1
--- NOTE | 2023-08-30 15:50 | ER ---
Nurse's Notes [facility] Name: Power Castillo Age: 48 yrs Sex: Male : 1975 Arrival Date: 08/30/2023 Time: 12:40 Bed 19 Private MD: Diagnosis: Dental infection;Elevated blood-pressure reading, without diagnosis of hypertension Presentation: 08/29 13:01 Chief complaint: Patient states: High blood pressure and toothache for about a week, nj1 got worse 4 days ago. Had teeth pulled out about 2 years ago but was told there was a root left which is bothering him now. Was seen at [place] ED yesterday, given rx for clindamycin. Coronavirus screen: Vaccine status: Patient reports receiving the 2nd dose of the covid vaccine. Ebola Screen: Patient denies travel to an Ebola-affected area in the 21 days before illness onset. Initial Sepsis Screen: Does the patient meet any 2 criteria? No. Patient's initial sepsis screen is negative. Does the patient have a suspected source of infection? No. Patient's initial sepsis screen is negative. Risk Assessment: Do you want to hurt yourself or someone else? Patient reports no desire to harm self or others. Onset of symptoms was August 2023. 13:01 Method Of Arrival: Ambulatory [facility] 13:01 Acuity: JULIA 3 nj1 Historical: - Allergies: 13:05 No Known Allergies; nj1 - PMHx: 13:05 Degenerative disc disease; osteoarthritis; spinal stenosis; nj1 - PSHx: 13:05 Cholecystectomy; nj1 13:06 Hernia repair; nj1 - Immunization history:: Client reports receiving the 2nd dose of the Covid vaccine. - Infectious Disease History:: Denies. - Social history:: Smoking status: Patient reports the use of cigarette tobacco products, smokes one pack cigarettes per day. Screenin:07 [facility] ED Fall Risk Assessment (Adult) History of falling in the last 3 months, ph including since admission No falls in past 3 months (0 pts) Confusion or Disorientation No (0 pts) Intoxicated or Sedated No (0 pts) Impaired Gait No (0 pts) Mobility Assist Device Used No (0 pt) Altered Elimination No (0 pt) Score/Fall Risk Level 0 - 2 = Low Risk Oriented to surroundings, Maintained a safe environment, Hourly rounding (assess needs \T\ fall precautionary measures) done. Abuse screen: Denies threats or abuse. Denies injuries from another. Nutritional screening: No deficits noted. Tuberculosis screening: No symptoms or risk factors identified. Assessment: 15:07 General: Appears in no apparent distress. uncomfortable, well groomed, Behavior is ph calm, cooperative, appropriate for age. Pain: Complains of pain in mouth. Neuro: Level of Consciousness is awake, alert, obeys commands, Oriented to person, place, time, situation. Cardiovascular: Reports lightheadedness, Denies chest pain, shortness of breath. Respiratory: Airway is patent Respiratory effort is even, unlabored. GI: Reports nausea, Patient currently denies abdominal pain, vomiting. EENT: all teeth removed, pt wears dentures. Derm: Skin is pink, warm \T\ dry. Vital Signs: 13:01 BP 186 / 127; Pulse 62; Resp 18; Temp 98.4(TE); Pulse Ox 100% ; Weight 121.56 kg; nj1 Height 6 ft. 0 in. ; Pain 10/10; 15:06 BP 155 / 107; Pulse 50; Resp 18; Pulse Ox 96% on R/A; ph 16:16 BP 166 / 101; Pulse 54; Resp 18; Temp 98; Pulse Ox 99% on R/A; ph 13:01 Body Mass Index 36.35 (121.56 kg, 182.88 cm) nj1 13:01 Pain Scale: Adult nj1 Vitals: 15:06 Cardiac Rhythm Assessment Sinus bo. ph ED Course: 12:43 Patient arrived in ED. rg4 13:05 Triage completed. nj1 13:06 Arm band placed on right wrist. nj1 13:12 Manda Samuel, RN is Primary Nurse. ph 13:12 Yovana Camara, IRIS is PHCP. kb 13:12 Andrew Negrete MD is Attending Physician. kb 13:50 XRAY Chest (1 view) In Process Unspecified. EDMS 14:15 Initial lab(s) drawn, by me, sent to lab. EKG done, by ED staff, reviewed by Yovana SIMMONS. Inserted saline lock: 20 gauge in right antecubital area, using aseptic technique. Blood collected. 15:09 Patient has correct armband on for positive identification. Bed in low position. Call ph light in reach. Side rails up X 1. Client placed on continuous cardiac and pulse oximetry monitoring. NIBP monitoring applied. cardiac monitor technician on. Door closed. Noise minimized. Warm blanket given. 15:09 No provider procedures requiring assistance completed. ph 16:16 IV discontinued, intact, bleeding controlled, No redness/swelling at site. Pressure ph dressing applied. Administered Medications: 14:31 Drug: morphine IVP or IV 4 mg IVP once over 4 mins Route: IVP; Infused Over: 4 mins; ph Site: right antecubital; 14:45 Follow up: Response: No adverse reaction; Pain is decreased; RASS: Alert and Calm (0) ph 14:31 Drug: Ondansetron IVP 4 mg IVP once; over 2 minutes Route: IVP; Site: right antecubital;ph 16:15 Follow up: Response: No adverse reaction ph 15:59 Drug: [place] PO 10 mg-325 mg 1 tabs PO once Route: PO; ph 16:15 Follow up: Response: No adverse reaction; Medication administered at discharge. ph 15:59 Drug: Ketorolac IVP 15 mg IVP once Route: IVP; Site: right antecubital; ph 16:15 Follow up: Response: No adverse reaction ph 15:59 Drug: Clindamycin PO 300 mg PO once Route: PO; ph 16:15 Follow up: Response: No adverse reaction ph Medication: 15:08 VIS not applicable for this client. ph Outcome: 15:49 Discharge ordered by . kb 16:16 Discharged to home ambulatory, with significant other, ph 16:16 Condition: good 16:16 Discharge instructions given to patient, Instructed on discharge instructions, follow up and referral plans. medication usage, Demonstrated understanding of instructions, follow-up care, medications, Prescriptions given X 1, 16:16 Patient left the ED. ph Signatures: Dispatcher [employer] EDYovana Ghotra, IRIS STEVEN-Manda Damian RN RN Queta Toscano rg4 Monik Julio RN RN nj1
[2023-08-30 21:47] VITALS: BP 166/101; TEMP 98; O2SAT 99
--- NOTE | 2023-09-01 12:46 | EKG ---
Test Date: 2023-08-30 Test Time: 14:20:34 Sound Engineering Technician: PH MEASUREMENT RESULTS: Intervals: Rate: 50 SC: 166 QRSD: 90 QT: 444 QTc: 404 [place]: P: SC: 166 QRS: 218 T: 169 INTERPRETIVE STATEMENTS: Sinus bradycardia Right superior axis deviation Nonspecific ST and T wave abnormality Abnormal ECG Compared to ECG 08/05/2018 09:36:46 Right superior axis now present ST (T wave) deviation now present Sinus rhythm no longer present Left-axis deviation no longer present Electronically Signed On 09-01-23 12:41:36 CDT by Kemal Araya
== END 2023-08-30 16:16 | disposition home or self-care (01) ==
LOC: ER 12:40
DX: K04.7 Periapical abscess without sinus (principal); R03.0 Elevated blood-pressure reading, without diagnosis of hypertension; F17.210 Nicotine dependence, cigarettes, uncomplicated
CPT/HCPCS: 93005; 85025; 80048; 36415; 84484; 71045; 96375; 96374; 99285; J2405

== ENCOUNTER 2024-02-29 22:10 | Emergency (ER) | payer OTHER ==
--- OUTSIDE RECORDS SUMMARY | 2024-02-29 22:13 | XMS REPORT | Continuity of Care Document ---
Author Name Unknown Address [address] [facility] [place] [address] [facility] thconnect Address [address] [facility] [address] [place] [address] Care Team Providers Care Professional Tutor Name Role Phone [facility] Primary Care Physician U LUIS Rosas Attending Clinician Unavailab le Doctor Unassigned, Francisco Attending Clinician U ZACHERY Fernandez Attending Clinician Unavailable MEHDI Attending Clinician Unavailable Dexter Hugo MD Attending Clinician DEXTER HUGO Attending Clinician Unavail able DEXTER HUGO Attending Clinician Unavail able MEHDI Admitting Clinician Unavailable Payers Payer Name Policy Type Policy Number Effective Date Expirati on Date Source [facility] [id number] 2023 00:00:00 Problems Condition Name Condition Details Condition Category Status Onset Date Resolution Date Last Treatment Date Treating Clinician Comments Source No known active problems No known active problems Disease [facility] Allergies, Adverse Reactions, Alerts Allergy Name Allergy Type Status Severity Reaction(s) Onset Date Inactive Date Treating Clinician Comments Source No Known Allergie s DA Active U 08-23 00:00: 00 [facility] No Known Allergie s DA Active U 08-23 00:00: 00 [facility] NO KNOWN ALLERGIE S Drug Class Active [facility] Social History Social Habit Start Date Stop Date Quantity Comments Source [facility] to SARS-CoV-2 (event) 2022-04-23 00:00:00 2022-05-03 12:41:00 Not sure [facility] Sex Assigned At 1975 00:00:00 1975 00:00:00 [facility] Smoking Status Start Date Stop Date Source Tobacco smoking consumption unknown [facility] Medications Ordered Medication Name Filled Medication Name Start Date Stop Date Current Medication? Ordering Clinician Indication Dosage Frequency Signature (SIG) Comments Components Source tamsulosin 0.4 mg 24 hr capsule 2021-05 00:00: 00 Yes .4mg 0.4 mg. [facility] cyclobenzap rine 10 mg tablet 2021-05 00:00: 00 Yes 10mg 10 mg. [facility] gabapentin 300 mg capsule 2021-05 00:00: 00 Yes 300mg 300 mg. [facility] docusate 100 mg capsule 2021-05 00:00: 00 Yes 100mg 100 mg. [facility] finasteride 5 mg tablet 2021-05 00:00: 00 Yes 5mg 5 mg. [facility] atorvastati n 40 mg tablet 02-07 00:00: 00 Yes 20mg 20 mg. [facility] cetirizine 10 mg tablet 01-21 00:00: 00 Yes 10mg 10 mg. [facility] meloxicam 15 mg tablet 01-21 00:00: 00 Yes 15mg 15 mg. [facility] chlorhexidi ne 4 % external liquid 1-05 00:00: 00 Yes APPLY SMALL AMOUNT TO THE SKIN TIW FOR INFECTION AVOID HEAD AND NECK [facility] amoxicillin 500 mg capsule 09-07 00:00: 00 Yes 500mg Take 1 capsule by mouth 3 (three) times daily. [facility] ibuprofen 800 mg tablet 09-07 00:00: 00 Yes 800mg Take 1 tablet by mouth every 8 (eight) hours as needed (PAIN). [facility] Vital Signs Vital Name Observation Time Observation Value Comments S ource Systolic blood pressure 2023-08-11 14:25:00 161 mm[Hg] [facility] Diastolic blood pressure 2023-08-11 14:25:00 85 mm[Hg] [facility] Heart rate 2023-08-11 14:25:00 63 /min [facility] Body temperature 2023-08-11 14:25:00 37 Elsa [facility] Respiratory rate 2023-08-11 14:25:00 18 /min [facility] Body weight 2023-08-11 14:25:00 122.471 kg [facility] BMI 2023-08-11 14:25:00 36.62 kg/m2 [facility] Oxygen saturation in Arterial blood by Pulse oximetry 2023-08-11 14:25:00 97 /min [facility] Systolic blood pressure 2022-05-03 20:15:00 129 mm[Hg] [facility] Diastolic blood pressure 2022-05-03 20:15:00 86 mm[Hg] [facility] Heart rate 2022-05-03 20:15:00 73 /min [facility] Body height 2022-05-03 20:15:00 182.9 cm [facility] Body weight 2022-05-03 20:15:00 113.399 kg [facility] BMI 2022-05-03 20:15:00 33.91 kg/m2 [facility] Oxygen saturation in Arterial blood by Pulse oximetry 2022-05-03 20:15:00 97 /min [facility] Procedures Procedure Date / Time Performed Performing Clinician Source AMYLASE 2023-08-11 15:20:00 Luis Hylton Un [facility] LIPASE 2023-08-11 15:20:00 Luis Hylton Un [facility] TROPONIN I 2023-08-11 15:20:00 [facility] COMP. METABOLIC PANEL (18309) 2023-08-11 15:20:00 Luis Hylton [facility] CBC WITH DIFF 2023-08-11 15:20:00 [facility]IN[facility]YSIS 2023-08-11 15:20:00 [facility] CONSENT/REFUSAL FOR DIAGNOSIS AND TREATMENT 2023-08-11 14:13:54 Doctor Unassigned, Francisco [facility] AUTHORIZATION FOR RELEASE OF PHI 2022-09-27 05:01:00 Doctor Unassigned, Francisco [facility] ASSIGNMENT OF BENEFITS 2022-05-03 18:40:00 Docto r Unassigned, Francisco [facility] Encounters Start Date/Time End Date/Time Encounter Type Admission Type Attending Clinicians Care Facility Care Department Encounter ID Source 2023-08-11 09:25:00 2023-08-11 11:28:00 Emergency X LUIS HYLTON [facility] ERT [id number] [facility] 2023-08-11 09:25:00 2023-08-11 11:28:00 Emergency Luis Hylton [facility] [id number] [facility] 2022-09-27 00:00:00 2022-09-27 00:00:00 Orders Only Doctor Unassigned, Francisco [facility] [id number] [facility] 2022-08-02 10:30:00 2022-08-02 10:30:00 Outpatient ZACHERY BANEGAS [facility] [id number] [facility] 2022-05-15 00:00:00 2022-05-15 00:00:00 Outpatient AMBREEN_FAR HANA [facility] [id number] [facility] 2022-05-06 00:00:00 2022-05-06 00:00:00 Outpatient AMBREEN_FAR HANA [facility] [id number] [facility] 2022-05-03 14:20:00 2022-05-03 15:19:18 [facility] [id number] [facility] 2022-05-03 14:20:00 2022-05-03 15:19:18 Outpatient DEXTER LAUREN [facility] [id number] [facility] 2022-05-03 00:00:00 2022-05-03 00:00:00 Orders Only Doctor Unassigned, Francisco [facility] [id number] [id number] [facility] 2022-04-04 00:00:00 2022-04-04 00:00:00 Outpatient AMBREEN_FAR HANA [facility] [id number] [facility] 2022-03-11 00:00:00 2022-03-11 00:00:00 Outpatient AMBREEN_CAROLIN SPARROW [facility] [id number] [facility] 2022-02-18 00:00:00 2022-02-18 00:00:00 Outpatient AMBREEN_CAROLIN SPARROW [facility] [id number] [facility] 2022-01-15 00:00:00 2022-01-15 00:00:00 Outpatient AMBREEN_CAROLIN SPARROW [facility] [id number] [facility] 2022-01-14 00:00:00 2022-01-14 00:00:00 Outpatient AMBREEN_CAROLIN SPARROW [facility] [id number] [facility] 2021-12-26 00:00:00 2021-12-26 00:00:00 Outpatient AMBREEN_CAROLIN SPARROW [facility] [id number] [facility] 2021-11-28 09:25:00 2021-11-28 09:25:00 Outpatient AMBREEN_CAROLIN SPARROW [facility] [id number] [facility] 2021-11-22 09:52:00 2021-11-22 09:52:00 Outpatient AMBREEN_CAROLIN SPARROW [facility] [id number] [facility] 2021-11-21 09:00:00 2021-11-21 09:00:00 Outpatient AMBREEN_CAROLIN SPARROW [facility] [id number] [facility] 2021-11-20 08:33:00 2021-11-20 08:33:00 Outpatient AMBREEN_CAROLIN SPARROW [facility] [id number] [facility] 2021-11-19 09:58:00 2021-11-19 09:58:00 Outpatient AMBREEN_CAROLIN CALHOUNA [facility] [id number] [facility] 2021-11-13 09:57:00 2021-11-13 09:57:00 Outpatient AMBREEN_CAROLIN CALHOUNA [facility] [id number] [facility] 2021-11-12 11:00:00 2021-11-12 11:00:00 Outpatient AMBREEN_CAROLIN CALHOUNA [facility] [id number] [facility] 2021-11-11 10:58:00 2021-11-11 10:58:00 Outpatient AMBREEN_CAROLIN CALHOUNA [facility] [id number] [facility] 2021-11-05 03:10:00 2021-11-05 03:10:00 Outpatient AMBREEN_CAROLIN CALHOUNA [facility] [id number] [facility] 2021-10-31 09:51:00 2021-10-31 09:51:00 Outpatient AMBREEN_CAROLIN CALHOUNA [facility] [id number] [facility] 2021-10-23 02:33:00 2021-10-23 02:33:00 Outpatient AMBREEN_CAROLIN CALHOUNA [facility] [id number] [facility] 2021-10-22 05:19:00 2021-10-22 05:19:00 Outpatient AMBREEN_CAROLIN CALHOUNA [facility] [id number] [facility] 2021-10-16 03:49:00 2021-10-16 03:49:00 Outpatient AMBREEN_CAROLIN CALHOUNA [facility] [id number] [facility] 2021-10-15 04:17:00 2021-10-15 04:17:00 Outpatient AMBREEN_CAROLIN CALHOUNA [facility] [id number] [facility] 2021-10-14 02:47:00 2021-10-14 02:47:00 Outpatient AMBREEN_CAROLIN SPARROW [facility] [id number] [facility] 2021-10-08 01:50:00 2021-10-08 01:50:00 Outpatient AMBREEN_CAROLIN SPARROW [facility] [id number] [facility] 2021-10-07 12:02:00 2021-10-07 12:02:00 Outpatient AMBREEN_CAROLIN SPARROW [facility] [id number] [facility] 2021-10-01 01:52:00 2021-10-01 01:52:00 Outpatient AMBREEN_CAROLIN SPARROW [facility] [id number] [facility] 2021-09-30 11:29:00 2021-09-30 11:29:00 Outpatient AMBREEN_CAROLIN SPARROW [facility] [id number] [facility] 2021-09-27 10:13:00 2021-09-27 10:13:00 Outpatient AMBREEN_CAROLIN SPARROW [facility] [id number] [facility] 2021-09-24 04:41:00 2021-09-24 04:41:00 Outpatient AMBREEN_CAROLIN SPARROW [facility] [id number] [facility] 2021-09-20 08:51:00 2021-09-20 08:51:00 Outpatient AMBREEN_CAROLIN SPARROW [facility] [id number] [facility] 2021-09-19 02:32:00 2021-09-19 02:32:00 Outpatient AMBREEN_CAROLIN SPARROW [facility] [id number] [facility] 2021-09-18 11:55:00 2021-09-18 11:55:00 Outpatient AMBREEN_CAROLIN SPARROW [facility] [id number] [facility] 2020-08-23 17:37:04 2020-08-23 17:37:04 Inpatient HCAMN HC[facility] [id number] 25 [facility] 2020-07-28 02:16:00 2020-07-28 02:16:00 Outpatient KB SPARROW [facility] [id number] [facility] 2020-07-27 12:34:00 2020-07-27 12:34:00 [facility] [id number] [facility] Results Test Description Test Time Test Comments Results Result Co mments Source [facility] 15:45:31* Test Item Value Reference Range Interpretation Comme nts ANDREA (test code = 1434146415) 66 U/L 35-110 Lab Interpretation (test cod e = 98253-5) Normal [facility] 15:45:31* Test Item Value Reference Range Interpretation Comme nts LIPASE (test code = 0152902386) 173 U/L 0-220 Lab Interpretation (test cod e = 86890-7) Normal [facility]. METABOLIC PANEL (88833)2023-08-11 15:45:30* Test Item Value Reference Range Interpretation Comme nts NA (test code = 5718380758) 137 mmol/L 135-145 K (test code = 2043129849) 4.9 mmol/L 3.5-5.0 Slight hemolysis CL (test code = 6152737361) 105 mmol/L 98-108 CO2 TOTAL (test code = 6385657669) 24 mmol/L 23-31 AGAP (test code = 0458026009) 8 2-16 BUN (test code = 5459862953) 20 mg/dL 7-23 Slight hemolysis GLUCOSE (test code = 7585040205) 146 mg/dL 70-110 H CREATININE (test code = 2160-0) 1.00 mg/dL 0.60-1.25 TOTAL BILI (test code = 6779515774) 1.1 mg/dL 0.1-1.1 CALCIUM (test code = 6705601235) 9.3 mg/dL 8.6-10.6 T PROTEIN (test code = 2073610696) 7.6 g/dL 6.3-8.2 ALBUMIN (test code = 1583249808) 4.7 g/dL 3.5-5.0 ALK PHOS (test code = 6419123483) 65 U/L 34-122 Slight hemolysis ALTv (test code = 1742-6) 107 U/L 5-50 H AST(SGOT) (test code = 6456870799) 58 U/L 13-40 H Slight hemolysis eGFR (test code = 11969-7) 92.3 mL/min/1.73m2 CKD-EPI eGFR (2020). Assuming creatinine has been stable day-to-day for at least three months, the eGFR indicates Category G1 (>= 90 mL/min/1.73 m2) Lab Interpretation (test code = 34711-2) Abnormal [facility] WITH [id number] 15:31:08* Test Item Value Reference Range Interpretation [...] 34.7 g/dL 31.2-35.0 RDW-SD (test code = 94608-9) 42.1 fL 38.5-51.6 RDW-CV (test code = 788-0) 12.2 % 12.1-15.4 PLT (test code = 777-3) 246 150-328 MPV (test code = 90663-7) 10.8 fL 9.8-13.0 NRBC/100 WBC (test code = 0524604592) 0.0 0.0-10.0 NRBC x10^3 (test code = 3182140659) See_Comment [Automated messa ge] The system which generated this result transmitted reference range: 10*3/?L. The reference range was not used to interpret this result as normal/abnormal. GRAN MAT (NEUT) % (test code = 770-8) 52.8 % IMM GRAN % (test code = 2349237892) 0.60 % LYMPH % (test code = 736-9) 34.6 % MONO % (test code = 5905-5) 8.2 % EOS % (test code = 713-8) 3.1 % BASO % (test code = 706-2) 0.7 % GRAN MAT x10^3(ANC) (test code = 7742963100) 3.58 10*3/uL 1.99-6.95 IMM GRAN x10^3 (test code = 3491863061) 0.04 10*3/uL 0.00-0.06 LYMPH x10^3 (test code = 731-0) 2.35 10*3/uL 1.09-3.23 MONO x10^3 (test code = 742-7) 0.56 10*3/uL 0.36-1.02 EOS x10^3 (test code = 711-2) 0.21 10*3/uL 0.06-0.53 BASO x10^3 (test code = 704-7) 0.05 10*3/uL 0.01-0.09 Lab Interpretation (test code = 69570-2) Abnormal [facility] [id number] 19:15:00* Test Item Value Reference Range Interpretation Comme nts COVID 19 INHOUSE AG (test co de = [id number]) POSITIVE NEGATIVE A REPEATED TEST --CONFLICTING RESULTS-SPOKE TO BRANDON FORRECOLLECT.-LAB-ALB Notes Date/Time Note Provider Source 2023-08-11 11:28:00 Pt's was in recovery from surgery and ready to be let go home. Pt signed out AMA. Form signed provider informed. Corine Scott RN [facility] 2023-08-11 09:31:13 Power Snider is a 48 year old [...] blanket. Will continue with plan of care. [facility] 2023-08-11 09:20:45 Power Snider is a 48 year old [...] surgery and so I've been awake since 0130 this morning. [facility]. I"m not even trying to blame it on the Covid, it messed a lot of people up. But when I had it and my mom , my stomach just hasn't been the same since 2020.". Pt is aox4 with gcs 15 skin warm and dry resp even and unlabored. NAD Noted. Pt to room for eval. Francoise Alvarez RN [facility] 2020-08-23 17:42:00 [facility] REPORT#:[id number] REPORT STATUS: Signed DATE:08/23/20 TIME: 174 PATIENT: POWER SNIDER UNIT #: [id number] ROOM/BED: AGE: 45 SEX: M PCP PHYS: No Primary or Family Physician SERVICE AUTHOR: Bart Oh UI ENGINEER * ALL edits or amendments must be made on the electronic/computer document * HPI-Eye Problem Free Text HPI Notes Free Text HPI Notes 45 y/o m a/o x 4 c/o redness to r eye sclera, pt advised recently tx for conjunctivitis to left and and now experiencing similar s/s to left eye. pt admitted to exposure to covid pos pt. pt denies any sob or chest pain or cough or loss of sense of taste or smell. denies any change in visual aquity. General Confirmed Patient Yes Patient Type Existing patient Initial Greet Date/Time 08/23/201730 Presentation Chief Complaint Eye R affected Risk-Eye Problem Risk Stratification )( Eye Injury - Adult Risk factors reviewed Review of Systems ROS Statements All systems rev neg except as marked. Focused Review of Systems Eyes Reports: Redness R. Past Medical History - Adult Stated Complaint EYE SWELLING RECENT EXPOSURE TO COVID Allergies Coded Allergies: No Known Allergies (08/23/20) Physical Exam Vital Signs Vital Signs First Documented: Result Date Time Pulse Ox 97 [...] 90 08/23 1726 Resp 18 08/23 172 Review of Vital Signs Reviewed Focused PE General/Const General/Const Awake, Alert, No acute distress, Well appearing, Well developed , Well hydrated, Well nourished, Cooperative, Not toxic appearing MS Head Head Atraumatic, Normocephalic Eyes Eyes Atraumatic, PERRL, EOMI, No nystagmus, No [...] No sinus tenderness, No facial swelling, Gums/dentition NL Skin Skin Atraumatic, Color NL, No rash, Warm, Dry, Intact, Turgor NL, No swelling Neurologic Neurologic Oriented X3, Speech NL, No motor deficits, No sensory deficits, CN II - XII intact, Reflexes equal bilat, Cerebellar NL, Memory NL, Gait NL Interpretation Diagnostics Lab Results Interpretation Results Laboratory Tests: 08/24 1839 Serology SARS-CoV-2 Ag (Rapid) (NEGATIVE) POSITIVE H Re-Evaluation MDM Re-Evaluation/Progress Re-Evaluation/Progress Time of Re-Eval 1914 Patient Discharge Departure Vital Signs/Condition Vital Signs First Documented: Result Date Time Pulse Ox 97 08/23 1726 B/P 160/113 08/23 1726 B/P Mean 128 08/23 172 O2 Delivery Room air 08/23 1725 Temp 36.7 08/23 172 Pulse 90 08/23 172 Resp 18 08/23 1725 Last Documented: Result Date Time Pulse Ox 97 08/23 1726 B/P 160/113 08/23 172 B/P Mean 128 08/23 172 O2 Delivery Room air 08/23 1725 Temp 36.7 08/23 172 Pulse 90 08/23 172 Resp 18 08/23 1725 All vital signs available at the time of this entry have been reviewed. Condition Stable Clinical Impression Clinical Impression Primary Impression: COVID-19 Secondary Impressions: Conjunctivitis Disposition Decision Discharge )( Discharged to Home Yes )( Time 1914 )( Date 08/23/20 Discharge/Care Plan (Auto) Prescriptions Current Visit Scripts NEOMY/POLY B/HYDROCORT 0.35%-10,000U-1%/ML (CORTISPORIN OPHTH) 2 DROP EACH EYE Q4H NEOMY/POLY B/HYDROCORT 0.35%-10,000U-1%/ML (CORTISPORIN OPHTH) 2 DROP EACH EYE Q4H #7.5 ML Patient Instructions COVID-19 Home Care, ED Conjunctivitis, Nonspecific Referrals PRIMARY CARE Discharge Note I have spoken with the patient and/or caregivers. I have explained the patient's condition, diagnoses and treatment plan based on the information available to me at this time. I have answered the patient's and/or caregiver's questions and addressed any concerns. The patient and/or caregivers have as good an understanding of the patient's diagnosis, condition and treatment plan as can be expected at this point. The vital signs have been stable. The patient's condition is stable and appropriate for discharge from the emergency department. The patient will pursue further outpatient evaluation with the primary care physician or other designated or consulting physician as outlined in the discharge instructions. The patient and/or caregivers are agreeable to this plan of care and follow-up instructions have been explained in detail. The patient and/or caregivers have received these instructions in written format and have expressed an understanding of the discharge instructions. The patient and/or caregivers are aware that any significant change in condition or worsening of symptoms should prompt an immediate return to this or the closest emergency department or a call to 911. at 1954 RPT #:[id number] END OF REPORT [facility] 2020-08-23 17:42:00 [facility] ([facility]) EMERGENCY PROVIDER REPORT REPORT#:[id number] REPORT STATUS: Signed DATE:08/23/20 TIME: 1741 PATIENT: POWER SNIDER UNIT #: [id number] ROOM/BED: AGE: 45 SEX: M PCP PHYS: No Primary or Family Physician SERVICE AUTHOR: Bart Oh NP * ALL edits or amendments must be made on the electronic/computer document * Bart Oh 08/23/20 1742: HPI-Eye Problem Free Text HPI Notes Free Text HPI Notes 45 y/o m a/o x 4 c/o redness to r eye sclera, pt advised recently tx for conjunctivitis to left and and now experiencing similar s/s to left eye. pt admitted to exposure to covid pos pt. pt denies any sob or chest pain or cough or loss of sense of taste or smell. denies any change in visual aquity. General Confirmed Patient Yes Patient Type Existing patient Initial Greet Date/Time 08/23/20 173 Presentation Chief Complaint Eye R affected Risk-Eye Problem Risk Stratification )( Eye Injury - Adult Risk factors reviewed Review of Systems ROS Statements All systems rev neg except as marked. Focused Review of Systems Eyes Reports: Redness R. Past Medical History - Adult Stated Complaint EYE SWELLING RECENT EXPOSURE TO COVID Allergies Coded Allergies: No Known Allergies (08/23/20) Physical Exam Vital Signs Vital Signs First Documented: Result Date Time Pulse Ox 97 [...] 1726 Review of Vital Signs Reviewed Focused PE General/Const General/Const Awake, Alert, No acute distress, Well appearing, Well developed , Well hydrated, Well nourished, Cooperative, Not toxic appearing MS Head Head Atraumatic, Normocephalic Eyes Eyes Atraumatic, PERRL, EOMI, No nystagmus, No [...] No sinus tenderness, No facial swelling, Gums/dentition NL Skin Skin Atraumatic, Color NL, No rash, Warm, Dry, Intact, Turgor NL, No swelling Neurologic Neurologic Oriented X3, Speech NL, No motor deficits, No sensory deficits, CN II - XII intact, Reflexes equal bilat, Cerebellar NL, Memory NL, Gait NL Interpretation Diagnostics Lab Results Interpretation Results Laboratory Tests: 08/24 1839 Serology SARS-CoV-2 Ag (Rapid) (NEGATIVE) POSITIVE H Re-Evaluation MDM Re-Evaluation/Progress Re-Evaluation/Progress Time of Re-Eval 1914 Patient Discharge Departure Vital Signs/Condition Vital Signs First Documented: Result Date Time Pulse Ox 97 [...] Temp 36.7 08/23 1726 Pulse 90 08/23 172 Resp 18 08/23 172 All vital signs available at the time of this entry have been reviewed. Condition Stable Clinical Impression Clinical Impression Primary Impression: COVID-19 Secondary Impressions: Conjunctivitis Disposition Decision Discharge )( Discharged to Home Yes )( Time 1914 )( Date 08/23/20 Discharge/Care Plan (Auto) Prescriptions Current Visit Scripts NEOMY/POLY B/HYDROCORT 0.35%-10,000U-1%/ML (CORTISPORIN OPHTH) 2 DROP EACH EYE Q4H NEOMY/POLY B/HYDROCORT 0.35%-10,000U-1%/ML (CORTISPORIN OPHTH) 2 DROP EACH EYE Q4H #7.5 ML Patient Instructions COVID-19 Home Care, ED Conjunctivitis, Nonspecific Referrals PRIMARY CARE Discharge Note I have spoken with the patient and/or caregivers. I have explained the patient's condition, diagnoses and treatment plan based on the information available to me at this time. I have answered the patient's and/or caregiver's questions and addressed any concerns. The patient and/or caregivers have as good an understanding of the patient's diagnosis, condition and treatment plan as can be expected at this point. The vital signs have been stable. The patient's condition is stable and appropriate for discharge from the emergency department. The patient will pursue further outpatient evaluation with the primary care physician or other designated or consulting physician as outlined in the discharge instructions. The patient and/or caregivers are agreeable to this plan of care and follow-up instructions have been explained [...] call to 911. Madelyn Espinoza MD 08/24/20 0825: Patient Discharge Departure Supervising Physician Note Haja Saw Pt Alone I have reviewed the PA/UI ENGINEER's note and plan of care. I was available for consultation as needed at all times during the patient's visit in the emergency department. I agree with the clinical impression, plan and disposition. at 1954 RPT #:[id number] END OF REPORT [facility] 2020-08-23 17:42:00 [facility] ([facility]) EMERGENCY PROVIDER REPORT REPORT#:[id number] REPORT STATUS: Signed DATE:08/23/20 TIME: 1741 PATIENT: POWER SNIDER UNIT #: [id number] ROOM/BED: AGE: 45 SEX: M PCP PHYS: No Primary or Family Physician SERVICE AUTHOR: Bart Oh NP * ALL edits or amendments must be made on the electronic/computer document * Bart hO 08/23/201741: HPI-Eye Problem Free Text HPI Notes Free Text HPI Notes 45 y/o m a/o x 4 c/o redness to r eye sclera, pt advised recently tx for conjunctivitis to left and and now experiencing similar s/s to left eye. pt admitted to exposure to covid pos pt. pt denies any sob or chest pain or cough or loss of sense of taste or smell. denies any change in visual aquity. General Confirmed Patient Yes Patient Type Existing patient Initial Greet Date/Time 03/31/21 1731 Presentation Chief Complaint Eye R affected Risk-Eye Problem Risk Stratification )( Eye Injury - Adult Risk factors reviewed Review of Systems ROS Statements All systems rev neg except as marked. Focused Review of Systems Eyes Reports: Redness R. Past Medical History - Adult Stated Complaint EYE SWELLING RECENT EXPOSURE TO COVID Allergies Coded Allergies: No Known Allergies (08/23/20) Physical Exam Vital Signs Vital Signs First Documented: Result Date Time Pulse Ox 97 [...] 90 08/23 1726 Resp 18 08/23 172 Review of Vital Signs Reviewed Focused PE General/Const General/Const Awake, Alert, No acute distress, Well appearing, Well developed , Well hydrated, Well nourished, Cooperative, Not toxic appearing MS Head Head Atraumatic, Normocephalic Eyes Eyes Atraumatic, PERRL, EOMI, No nystagmus, No [...] No sinus tenderness, No facial swelling, Gums/dentition NL Skin Skin Atraumatic, Color NL, No rash, Warm, Dry, Intact, Turgor NL, No swelling Neurologic Neurologic Oriented X3, Speech NL, No motor deficits, No sensory deficits, CN II - XII intact, Reflexes equal bilat, Cerebellar NL, Memory NL, Gait NL Interpretation Diagnostics Lab Results Interpretation Results Laboratory Tests: 08/24 1839 Serology SARS-CoV-2 Ag (Rapid) (NEGATIVE) POSITIVE H Re-Evaluation MDM Re-Evaluation/Progress Re-Evaluation/Progress Time of Re-Eval 1914 Patient Discharge Departure Vital Signs/Condition Vital Signs First Documented: Result Date Time Pulse Ox 97 [...] entry have been reviewed. Condition Stable Clinical Impression Clinical Impression Primary Impression: COVID-19 Secondary Impressions: Conjunctivitis Disposition Decision Discharge )( Discharged to Home Yes )( Time 1914 )( Date 08/23/20 Discharge/Care Plan (Auto) Prescriptions Current Visit Scripts NEOMY/POLY B/HYDROCORT 0.35%-10,000U-1%/ML (CORTISPORIN OPHTH) 2 DROP EACH EYE Q4H NEOMY/POLY B/HYDROCORT 0.35%-10,000U-1%/ML (CORTISPORIN OPHTH) 2 DROP EACH EYE Q4H #7.5 ML Patient Instructions COVID-19 Home Care, ED Conjunctivitis, Nonspecific Referrals PRIMARY CARE Discharge Note I have spoken with the patient and/or caregivers. I have explained the patient's condition, diagnoses and treatment plan based on the information available to me at this time. I have answered the patient's and/or caregiver's questions and addressed any concerns. The patient and/or caregivers have as good an understanding of the patient's diagnosis, condition and treatment plan as can be expected at this point. The vital signs have been stable. The patient's condition is stable and appropriate for discharge from the emergency department. The patient will pursue further outpatient evaluation with the primary care physician or other designated or consulting physician as outlined in the discharge instructions. The patient and/or caregivers are agreeable to this plan of care and follow-up instructions have been explained [...] call to 911. Madelyn Espinoza MD 08/24/20 0825: Interpretation Diagnostics Lab Results Interpretation Lab Statement Laboratory studies reviewed and considered in the medical decision-making. Patient Discharge Departure Supervising Physician Note MidLv Saw Pt Alone I have reviewed the PA/UI ENGINEER's note and plan of care. I was available for consultation as needed at all times during the patient's visit in the emergency department. I agree with the clinical impression, plan and disposition. at [phone] at 1017 RPT #:[id number] END OF REPORT [facility]
[2024-02-29] MEDS ORDERED: ALBUTEROL 2.5 MG/3 ML NEB SOL ONE (23:25)
[2024-02-29] MEDS ORDERED: ASPIRIN 81 MG CHEWABLE TABLET ONE (23:26)
[2024-02-29] MEDS ORDERED: NA CHLORIDE 0.9% 1,000 ML ONE (23:26)
[2024-02-29] MEDS ORDERED: IPRATROPIUM BROM 0.5MG/2.5ML ONE (23:26)
[2024-02-29 23:52] LABS: Absolute Basophils 0.1 K/uL (0-0.5); Absolute Eosinophils 0.2 K/uL (0-0.5); Absolute Lymphocytes (CBC) 3.4 K/uL (0.7-4.9); Absolute Monocytes 0.8 K/uL (0.1-1.3); Basophils % 0.6 % (0-1.3); Eosinophils % 2.3 % (0-4.4); Hematocrit 46.4 % (39.6-49.0); Hemoglobin 15.9 g/dL (13.6-17.9); Lymphocytes % 32.5 % (15.3-44.8); MCH 32.4 pg (27.0-35.0); MCHC 34.2 g/dL (32.0-36.0); MCV 94.9 fL (80-100); MPV 9.1 fL (7.6-11.3); Monocytes % 7.9 % (3.3-12.3); Neutrophils % 56.7 % (41.7-73.7); Nucleated Red Blood Cells % 0.1 % (0-0); Platelets 306 thou/uL (152-406); Red Cell Distribution Width 13.3 % (12.1-15.2)
[2024-03-01 00:01] LABS: SARS-CoV-2 Antigen CONTROL BLUE LINE VIS/BG OK; SARS-CoV-2 Antigen Rapid Res Negative (Negative)
[2024-03-01 00:03] LABS: D-Dimer 0.394 FEUug/mL (0-0.500); PT Prothrombin Time 10.7 SECONDS (9.4-12.5); Protime INR 0.95
[2024-03-01 00:09] LABS: Albumin 3.9 g/dL (3.4-5.0); Albumin/Globulin Ratio 1.1 (1.1-1.8); Anion Gap 10.8 mEq/L (5.0-15.0); Bilirubin Direct 0.2 mg/dL (0-0.2); Bilirubin Indirect, Calculated 0.8 mg/dL (0.2-0.8); Globulin 3.6 g/dL (2.3-3.5); Magnesium 1.9 mg/dL (1.6-2.4); Potassium 3.8 mEq/L (3.5-5.1); Protein, Total 7.5 g/dL (6.4-8.2); Troponin High Sensitivity 7.5 pg/mL (<58.9)
--- NOTE | 2024-03-01 01:23 | EDPHYS ---
Physician Documentation [facility] Name: Power Castillo Age: 48 yrs Sex: Male : 1975 Arrival Date: 02/29/2024 Time: 22:10 Bed 4 Private MD: ED Physician Indra Harrell HPI: 02/28 22:45 This 48 yrs old Male presents to ER via EMS with complaints of Shortness Of Breath and cp Chest Pain. 22:45 The patient has shortness of breath at rest. cp 22:45 Onset: The symptoms/episode began/occurred suddenly, today. Associated signs and cp symptoms: Pertinent positives: chest pain, near syncope. Historical: - Allergies: 22:36 No Known Allergies; ha1 - Home Meds: 22:36 meloxicam 15 mg Oral tab 1 tab once daily [Active]; ha1 - PMHx: 22:36 Degenerative disc disease; osteoarthritis; spinal stenosis; ha1 - PSHx: 22:36 Cholecystectomy; hernia repair; ha1 - Immunization history:: Adult Immunizations up to date. - Infectious Disease History:: Denies. - Social history:: Smoking status: unknown. ROS: 22:50 Constitutional: Negative for body aches, chills, fever, poor PO intake, cp 22:50 Eyes: Negative for injury, pain, redness, and discharge, cp 22:50 Cardiovascular: Positive for chest pain, Negative for edema, palpitations, 22:50 Respiratory: Positive for shortness of breath, at rest. 22:50 Abdomen/GI: Negative for abdominal pain, vomiting, diarrhea, constipation, 22:50 Back: Negative for radiated pain, 22:50 Neuro: Positive for dizziness, headache, near syncope, Negative for altered mental status, Exam: 22:42 ECG was reviewed by the Attending Physician. cp 22:55 Constitutional: The patient appears in no acute distress, alert, awake, cp non-diaphoretic, non-toxic, well developed, well nourished, uncomfortable, 22:55 Head/Face: Normocephalic, atraumatic. cp 22:55 Eyes: Periorbital structures: appear normal, Conjunctiva: normal, no exudate, no injection, Sclera: no appreciated abnormality, Lids and lashes: appear normal, bilaterally, 22:55 ENT: External ear(s): are unremarkable, Nose: is normal, Mouth: Lips: moist, Oral mucosa: moist, Posterior pharynx: Airway: no evidence of obstruction, patent, 22:55 Neck: ROM/movement: limited range of motion, is not appreciated, pain to right anterior neck, 22:55 Chest/axilla: Inspection: normal, 22:55 Cardiovascular: Rate: normal, Rhythm: regular, Edema: is not appreciated, JVD: is not appreciated, 22:55 Respiratory: the patient does not display signs of respiratory distress, Respirations: normal, no use of accessory muscles, no retractions, labored breathing, is not present, Breath sounds: decreased breath sounds, are not appreciated, stridor, is not appreciated, wheezing: is not appreciated, 22:55 Abdomen/GI: Inspection: abdomen appears normal, Palpation: abdomen is soft and non-tender, in all quadrants, 22:55 Neuro: Orientation: to person, place \T\ time. Mentation: is normal, Motor: moves all fours, no focal deficits, Vital Signs: 22:24 BP 98 / 59; Pulse 63; Resp 19 S; Temp 97.6(T); Pulse Ox 97% on R/A; Weight 122.47 kg; ha1 Height 6 ft. 0 in. ; 23:11 BP 99 / 67; Pulse 56; Resp 17; Pulse Ox 97% on 2 lpm NC; dd2 23:50 BP 91 / 73; Pulse 56; Resp 17; Pulse Ox 100% ; dd2 10 01:14 BP 109 / 69; Pulse 65; Pulse Ox 94% ; ec2 01:32 BP 102 / 69; Pulse 62; Resp 18; Temp 98.2; Pulse Ox 97% on R/A; dd2 10 22:24 Body Mass Index 36.62 (122.47 kg, 182.88 cm) ha1 Елена Coma Score: 02/28 23:22 Eye Response: spontaneous(4). Motor Response: obeys commands(6). Verbal Response: dd2 oriented(5). Total: 15. MDM: 22:28 Patient medically screened. cp 23:00 Differential diagnosis: CHF exacerbation, Chronic Obstructive Pulmonary Disease cp Myocardial Infarction pneumonia, Pneumothorax pulmonary edema, Pulmonary Embolism Unstable Angina Aortic Dissection. 03/01 01:02 Data reviewed: vital signs. ec2 01:02 ED course: Patient signed out to me by SINCERE, patient arrives today with multiple ec2 alcoholic beverages with complaints of near syncope and borderline saturations. Plans to follow-up CT scan of the chest as well as CT scan of the head. . 01:07 ED course: CT scan of the head shows no acute intracranial abnormality.. ec2 01:13 ED course: CT of the chest shows no acute intrathoracic process. Metabolic profile ec2 shows slight renal dysfunction with creatinine 1.6 today, LFTs with slight elevations. CBC is reassuring. BNP and troponin are nonactionable. COVID testing negative. D-dimer within normal ranges. . 01:21 ED course: On reassessment, pt reports improvement in symptoms, I discussed inpt ec2 hospitalization ultimately patient feels back to baseline. He also relates that he had just more marijuana just prior to the episode of feeling lightheaded. Possibly this also contributed. Will discharge home. Return precautions given.. 02/28 22:46 Order name: Basic Metabolic Panel; Complete Time: 00:31 cp 03/01 00:32 Interpretation: Normal except: GLUC 156; CRE 1.68; GFR 50. cp 02/28 22:46 Order name: CBC with Diff; Complete Time: 00:31 cp 02/28 22:46 Order name: LFT's; Complete Time: 00:31 cp 03/01 00:38 Interpretation: Normal except: AST 60; ALT 154; GLOB 3.6. cp 02/28 22:46 Order name: Magnesium; Complete Time: 00:31 cp 02/28 22:46 Order name: NT PRO-BNP; Complete Time: 00:31 cp 02/28 22:46 Order name: Troponin HS; Complete Time: 00:31 cp 02/28 22:46 Order name: SARS RAPID; Complete Time: 00:31 cp 02/28 22:50 Order name: D-Dimer; Complete Time: 00:31 cp 02/28 23:46 Order name: Protime (+INR); Complete Time: 00:31 EDMS 02/28 22:46 Order name: XRAY Chest (1 view) cp 02/28 23:41 Order name: CT Head Brain wo Cont cp 02/28 23:41 Order name: CT Aorta for Dissection cp 02/28 22:46 Order name: EKG; Complete Time: 22:47 cp 02/28 22:46 Order name: Cardiac monitoring; Complete Time: 22:48 cp 02/28 22:46 Order name: EKG - Nurse/Tech; Complete Time: 22:48 cp 02/28 22:46 Order name: IV Saline Lock; Complete Time: 23:12 cp 02/28 22:46 Order name: Labs collected and sent; Complete Time: 23:12 cp 02/28 22:46 Order name: O2 Per Protocol; Complete Time: 23:12 cp 02/28 22:46 Order name: O2 Sat Monitoring; Complete Time: 23:12 cp EC/06 22:42 Rate is 61 beats/min. Rhythm is regular. WI interval is normal. QRS interval is normal. cp QT interval is normal. T waves are Inverted in leads aVL, aVR. Interpreted by me. Reviewed by me. Administered Medications: 23:35 Drug: NS 0.9% IV 1000 ml IV at 999 ml/hr Per protocol Route: IV; Rate: 999 ml/hr; Site: [facility] left antecubital; 03/01 00:00 Follow up: Response: No adverse reaction dd2 00:35 Follow up: IV Status: Completed infusion; IV Intake: 1000ml dd2 02/28 23:36 Drug: DuoNeb Nebulize (2.5 mg - 0.5 mg) 3 ml Nebulizer once Route: Nebulizer; dd2 03/01 00:06 Follow up: Response: No adverse reaction dd2 02/28 23:36 Drug: Aspirin PO Chewable Tablet 324 mg PO once; 81 mg tablets x 4 Route: PO; dd2 03/01 00:06 Follow up: Response: No adverse reaction dd2 Disposition: 01:15 I agree with the assessment and plan of care. I reviewed the patient's care provided by 2 Advanced Practice Provider \T\ agree w/ the diagnosis \T\ care plan. I personally saw the pt \T\ performed a substantive portion of the visit, incldng all aspects of the (History/Exam/Medical Decision Making). Disposition Summary: 03/01/24 01:22 Discharge Ordered Notes: Location: Home ec2 Condition: Stable ec2 Diagnosis - Dehydration ec2 - Dyspnea, unspecified ec2 - Dizziness and giddiness ec2 Followup: ec2 - With: Private Physician - When: - Reason: Re-evaluation by your physician Discharge Instructions: - Discharge Summary Sheet ec2 - Dehydration, Adult ec2 Forms: - Medication Reconciliation Form ec2 - Antibiotic Education ec2 - Prescription Opioid Use ec2 - Patient Portal Instructions ec2 - Leadership Thank You Letter ec2 Signatures: Dispatcher [employer] EDMS Andrew Rodriguez PA PA cp Ayala, Heidy, MARLON RN ha1 Indra Harrell MD MD ec2 KATELIN RODRIGUEZ RN RN dd2 Corrections: (The following items were deleted from the chart) 02/28 23:46 22:47 PROTIME (+INR)+COAG.LAB.BRZ ordered. EDMT EDMS
--- NOTE | 2024-03-01 01:23 | ER ---
Nurse's Notes [facility] Name: Power Castillo Age: 48 yrs Sex: Male : 1975 Arrival Date: 02/29/2024 Time: 22:10 Bed 4 Private MD: Diagnosis: Dehydration;Dyspnea, unspecified;Dizziness and giddiness Presentation: 02/28 22:24 Chief complaint: EMS states: SHORTNESS OF BREATH, DIAPHORESIS, AFTER HAVING SOME BEERS. ha1 OXYGEN SATURATION AT 91 IN ROOM AIR. 22:24 Coronavirus screen: At this time, the client does not indicate any symptoms associated ha1 with coronavirus-19. Ebola Screen: No symptoms or risks identified at this time. Initial Sepsis Screen: Does the patient meet any 2 criteria? No. Patient's initial sepsis screen is negative. Does the patient have a suspected source of infection? No. Patient's initial sepsis screen is negative. Risk Assessment: Do you want to hurt yourself or someone else? Patient reports no desire to harm self or others. Onset of symptoms was February 29, 2024. 22:24 Method Of Arrival: EMS: [facility] ha1 22:24 Acuity: JULIA 2 ha1 Historical: - Allergies: 22:36 No Known Allergies; ha1 - Home Meds: 22:36 meloxicam 15 mg Oral tab 1 tab once daily [Active]; ha1 - PMHx: 22:36 Degenerative disc disease; osteoarthritis; spinal stenosis; ha1 - PSHx: 22:36 Cholecystectomy; hernia repair; ha1 - Immunization history:: Adult Immunizations up to date. - Infectious Disease History:: Denies. - Social history:: Smoking status: unknown. Screenin:37 Abuse screen: Denies threats or abuse. Denies injuries from another. Nutritional ha1 screening: No deficits noted. Tuberculosis screening: No symptoms or risk factors identified. 23:22 [facility] ED Fall Risk Assessment (Adult) History of falling in the last 3 months, dd2 including since admission No falls in past 3 months (0 pts) Confusion or Disorientation No (0 pts) Intoxicated or Sedated No (0 pts) Impaired Gait No (0 pts) Mobility Assist Device Used No (0 pt) Altered Elimination No (0 pt) Score/Fall Risk Level 0 - 2 = Low Risk Oriented to surroundings, Maintained a safe environment, Educated pt \T\ family on fall prevention, incl call for assistance when getting out of bed, Assessed \T\ reinforced patient's understanding of fall precautions, Hourly rounding (assess needs \T\ fall precautionary measures) done. Assessment: 23:22 General: Appears uncomfortable, Behavior is calm, cooperative, appropriate for age. dd2 Pain: Complains of pain in face, chest and neck Pain currently is 6 out of 10 on a pain scale. Neuro: Level of Consciousness is awake, alert, obeys commands, Oriented to person, place, time, situation, Appropriate for age Moves all extremities. Full function Speech is normal. Cardiovascular: Reports chest pain, diaphoresis, lightheadedness, shortness of breath, Heart tones S1 S2 Patient's skin is warm and dry. Rhythm is regular Chest pain is described as mild, began 1 hour prior to arrival. Respiratory: Airway is patent Respiratory effort is even, unlabored, Respiratory pattern is regular, symmetrical, Breath sounds are clear bilaterally. Onset: The symptoms/episode began/occurred suddenly, the patient has mild shortness of breath. GI: No signs and/or symptoms were reported involving the gastrointestinal system. Abdomen is round non-distended, Bowel sounds present X 4 quads. Abd is soft and non tender X 4 quads. : No deficits noted. No signs and/or symptoms were reported regarding the genitourinary system. EENT: No deficits noted. No signs and/or symptoms were reported regarding the EENT system. Derm: No signs and/or symptoms reported regarding the dermatologic system. Musculoskeletal: No deficits noted. No signs and/or symptoms reported regarding the musculoskeletal system. Vital Signs: 22:24 BP 98 / 59; Pulse 63; Resp 19 S; Temp 97.6(T); Pulse Ox 97% on R/A; Weight 122.47 kg; ha1 Height 6 ft. 0 in. ; 23:11 BP 99 / 67; Pulse 56; Resp 17; Pulse Ox 97% on 2 lpm NC; dd2 23:50 BP 91 / 73; Pulse 56; Resp 17; Pulse Ox 100% ; dd2 10 01:14 BP 109 / 69; Pulse 65; Pulse Ox 94% ; ec2 01:32 BP 102 / 69; Pulse 62; Resp 18; Temp 98.2; Pulse Ox 97% on R/A; dd2 02/28 22:24 Body Mass Index 36.62 (122.47 kg, 182.88 cm) ha1 [place] Coma Score: 02/28 23:22 Eye Response: spontaneous(4). Motor Response: obeys commands(6). Verbal Response: dd2 oriented(5). Total: 15. ED Course: 22:10 Patient arrived in ED. [id number] 22:21 Andrew Rodriguez PA is PHCP. cp 22:21 Indra Harrell MD is Attending Physician. cp 22:36 Triage completed. ha1 22:38 EKG done, by diagnostics tech. af3 22:39 KATELIN RODRIGUEZ, MARLON is Primary Nurse. dd2 22:52 XRAY Chest (1 view) In Process Unspecified. EDMS 23:10 No provider procedures requiring assistance completed. Initial lab(s) drawn, by me, dd2 sent to lab. COVID swab sent to lab. Maintain EMS IV. Dressing intact. Good blood return noted. Site clean \T\ dry. Gauge \T\ site: 20G LAC. Flushed with 10 mL NS. 23:15 Patient has correct armband on for positive identification. Bed in low position. Call dd2 light in reach. Side rails up X2. Provided Education on: CALL LIGHT, LABS, PROCEDURES. Client placed on continuous cardiac and pulse oximetry monitoring. NIBP monitoring applied. safety and security officer on. Door closed. Noise minimized. Warm blanket given. Pillow given. Verbal reassurance given. 23:20 SARS RAPID Sent. dd2 23:37 Initial Neb Treatment Given as ordered Patient was instructed and evaluated on dd2 procedure. 03/01 00:52 CT Head Brain wo Cont In Process Unspecified. EDMS 00:52 CT Aorta for Dissection In Process Unspecified. EDMS 01:32 IV discontinued, intact, bleeding controlled, No redness/swelling at site. Pressure dd2 dressing applied. 01:33 Arm band placed on Patient placed in an exam room, on a stretcher, on vegetable buncher, dd2 on pulse oximetry. Administered Medications: 02/28 23:35 Drug: NS 0.9% IV 1000 ml IV at 999 ml/hr Per protocol Route: IV; Rate: 999 ml/hr; Site: dd2 left antecubital; 03/01 00:00 Follow up: Response: No adverse reaction dd2 00:35 Follow up: IV Status: Completed infusion; IV Intake: 1000ml dd2 02/28 23:36 Drug: DuoNeb Nebulize (2.5 mg - 0.5 mg) 3 ml Nebulizer once Route: Nebulizer; dd2 03/01 00:06 Follow up: Response: No adverse reaction dd2 02/28 23:36 Drug: Aspirin PO Chewable Tablet 324 mg PO once; 81 mg tablets x 4 Route: PO; dd2 03/01 00:06 Follow up: Response: No adverse reaction dd2 Medication: 02/28 23:22 VIS not applicable for this client. dd2 Intake: 03/01 00:35 IV: 1000ml; Total: 1000ml. dd2 Outcome: 01:22 Discharge ordered by . ec2 01:32 Discharged to home ambulatory, dd2 01:32 Condition: stable 01:32 Discharge instructions given to patient, Instructed on discharge instructions, follow up and referral plans. Demonstrated understanding of instructions, follow-up care, 01:33 Patient left the ED. dd2 Signatures: Dispatcher [employer] EDMS Andrew Rodriguez PA PA cp Jeffries, Jennifer [id number] Tanesha Cool, RN RN ha1 Indra Harrell MD MD ec2 Mirtha Rea af3 KATELIN RODRIGUEZ RN RN dd2
[2024-03-01 02:06] VITALS: BP 102/69; TEMP 98.2; O2SAT 97
--- NOTE | 2024-03-01 02:58 | RAD REPORT ---
CT HEAD WITHOUT IV CONTRAST INDICATION: Near syncope. COMPARISON: CT head 08/24/2021 TECHNIQUE: CT images of the head were obtained without contrast. Multiplanar reformats were provided. Dose lowering techniques such as automated exposure control, iterative reconstruction, and mA and/or kV adjustment for patient size was utilized for this examination. FINDINGS: PARENCHYMA: No acute arterial territory infarct. No acute intracranial hemorrhage. No mass effect or midline shift. VENTRICLES: Normal in size for patient's age. EXTRA-AXIAL: No focal collection. Patent basilar cisterns. ORBITS: Unremarkable. BONES: No acute finding. PARANASAL SINUSES/MASTOIDS/MIDDLE EARS: Clear. SOFT TISSUES: No acute findings. OTHER: None. IMPRESSION: No acute intracranial abnormality. Electronically signed by: Sherry Mayberry MD 03/01/2024 01:02 AM CDT Due to temporary technical issues with the [employer] reporting system, reports are being brianna d by the in-house radiologist without review as a courtesy to ensure prompt reporting the interpreting radiologist is fully responsible for the content of the report. Transcribed Date/Time: 03/01/2024 2:58 AM
--- NOTE | 2024-03-01 02:59 | RAD REPORT ---
EXAMINATION: CT CHEST ABDOMEN PELVIS ANGIOGRAPHY WITH IV CONTRAST INDICATION: Male, 48 years old, chest pain COMPARISON(S): Same day chest radiograph TECHNIQUE: CT acquisition of the chest, abdomen, and pelvis following the administration of IV contra st in angiographic phase. Coronal and sagittal reformatted images provided. Maximal intensity projection and/or 3D sequences were created by the technologist. This exam was performed according to departmental dose-optimization program which includes automated exposure control, adjustment of the mA and/or kV according to patient size, and/or use of iterative reconstruction technique. FINDINGS: SUPPORTIVE DEVICES: None. LOWER NECK: Unremarkable. Beam hardening from arms down positioning results in decreased [id number] and limits interpretat ion. VASCULAR: Aorta: No evidence of dissection. Normal caliber. No significant atherosclerosis. Aortic branches: Patent. Minimal iliac atherosclerosis. Pulmonary arteries: Normal caliber. No evidence of central embolism. Veins: Limited unremarkable assessment due to contrast bolus timing. CHEST: Mediastinum/chase: No evident thoracic adenopathy. Unremarkable esophagus with small hiatal hernia. Heart: Normal size. No pericardial thickening or effusion. No coronary artery calcifications. Lungs: No acute consolidation. Mild scarring/atelectasis. No suspicious pulmonary nodule. Trace debri s in the distal trachea. Pleural Space: No pleural effusion or pneumothorax. ABDOMEN AND PELVIS: Liver: Diffuse hypoenhancement relative to the spleen. A few small hypodensities in the right lobe me asure up to 1.1 cm. Gallbladder and bile ducts: Postcholecystectomy changes. Pancreas: Normal. Spleen: Heterogeneous enhancement likely due to phase of contrast timing. Adrenal glands: Thickening without discrete nodule. Kidneys and ureters: Normal. Bladder: Nondistended without evident abnormality. Reproductive organs: Unremarkable as visualized. GI tract: Normal caliber without wall thickening. Normal appendix. Peritoneum: No evidence of ascites, fluid collection, or free air. Lymph nodes: No evident adenopathy. Abdominal wall: Small fat containing umbilical hernia. MUSCULOSKELETAL: No acute osseous abnormality. Degenerative change of the spine and pelvis. IMPRESSION: 1. No acute arterial abnormality of the chest, abdomen, or pelvis. No aortic dissection. 2. No acute cardiopulmonary or abdominopelvic finding. 3. Chronic and incidental findings above. Electronically signed by: Rd Hernandez MD 03/01/2024 01:09 AM CDT Due to temporary technical issues with the PACS/[employer] reporting system, reports are being brianna d by the in-house radiologist without review as a courtesy to ensure prompt reporting the interpreting radiologist is fully responsible for the content of the report. Transcribed Date/Time: 03/01/2024 2:58 AM
--- NOTE | 2024-03-01 05:50 | RAD REPORT ---
XR CHEST 1 VIEW CLINICAL INDICATION: Chest pain COMPARISON: None FINDINGS: LUNGS/PLEURAL SPACES: The lungs are clear. No pleural effusion. No pneumothorax. HEART/MEDIASTINUM: Within normal range. BONES/UPPER ABDOMEN/SOFT TISSUES: No acute findings. IMPRESSION: No radiographic evidence of active cardiopulmonary disease. Electronically signed by: Sherry Mayberry MD 02/29/2024 11:23 PM CDT RP Due to temporary technical issues with the PACS/[employer] reporting system, reports are being brianna d by the in-house radiologist without review as a courtesy to ensure prompt reporting the interpreting radiologist is fully responsible for the content of the report. Transcribed Date/Time: 03/01/2024 5:50 AM
--- NOTE | 2024-03-01 11:52 | EKG ---
Test Date: 2024-02-29 Test Time: 22:36:26 Chorus Dancer: AF MEASUREMENT RESULTS: Intervals: Rate: 61 MO: 162 QRSD: 92 QT: 428 QTc: 430 [place]: P: 50 MO: 162 QRS: -6 T: 64 INTERPRETIVE STATEMENTS: Normal sinus rhythm Normal ECG Compared to ECG 08/30/2023 14:20:34 Sinus bradycardia no longer present Right superior axis no longer present ST (T wave) deviation no longer present Electronically Signed On 03-01-24 11:51:03 CDT by Andry Haley
== END 2024-03-01 01:33 | disposition home or self-care (01) ==
LOC: ER 22:10
DX: E86.0 Dehydration (principal); R06.00 Dyspnea, unspecified; R42 Dizziness and giddiness; R07.9 Chest pain, unspecified; Z11.52 Encounter for screening for COVID-19
CPT/HCPCS: 93005; 85025; 80048; 36415; 83735; 85610; 85379; 80076; 84484; 83880; 70450; 71275; 74175; 71045; 94640; 96360; 99285; 87811; Q9967; J7613; J7644; J7030

== ENCOUNTER 2024-09-22 00:53 | Emergency (ER) | payer OTHER ==
[2024-09-22] MEDS ORDERED: KETOROLAC 30 MG/ML INJ ONE (01:44)
[2024-09-22] MEDS ORDERED: DIPHENHYDRAMINE 50 MG/ML VIAL ONE (01:44)
[2024-09-22] MEDS ORDERED: droPERidol 5 MG/2 ML VIAL ONE (01:44)
[2024-09-22] MEDS ORDERED: METOCLOPRAMIDE 10 MG/2mL INJ ONE (01:44)
[2024-09-22 01:46] LABS: Absolute Basophils 0.1 K/uL (0-0.5); Absolute Eosinophils 0.4 K/uL (0-0.5); Absolute Lymphocytes (CBC) 3.4 K/uL (0.7-4.9); Absolute Monocytes 0.8 K/uL (0.1-1.3); Hematocrit 45.7 % (39.6-49.0); Hemoglobin 16.1 g/dL (13.6-17.9); MPV 8.6 fL (7.6-11.3); PT Prothrombin Time 11.2 SECONDS (10-13.0); Protime INR 0.98
[2024-09-22 01:49] LABS: Absolute Neutrophil 4.3 K/uL (1.8-8.0); Eosinophils % 4.3 % (0-4.4); Lymphocytes % 37.7 % (15.3-44.8); MCH 32.7 pg (27.0-35.0); MCHC 35.3 g/dL (32.0-36.0); MCV 92.5 fL (80-100); Monocytes % 9.1 % (3.3-12.3); Neutrophils % 47.9 % (41.7-73.7); Nucleated Red Blood Cells % 0.1 % (0-0); Platelets 295 thou/uL (152-406); RBC Red Blood Cell Count 4.93 M/uL (4.33-5.43); Red Cell Distribution Width 13.2 % (12.1-15.2)
[2024-09-22 02:03] LABS: ALT/SGPT 130 U/L (16-61); AST/SGOT 53 U/L (15-37); Albumin 3.6 g/dL (3.4-5.0); Albumin/Globulin Ratio 0.9 (1.1-1.8); Alkaline Phosphatase 74 U/L (45-117); Anion Gap 12.1 mEq/L (5.0-15.0); BUN Blood Urea Nitrogen 16 mg/dL (7-18); Bicarbonate 24 mEq/L (21-32); Bilirubin Total 0.8 mg/dL (0.2-1.0); Globulin 3.9 g/dL (2.3-3.5); Glomerular Filtration Rate 69 ml/min (=/>90); Glucose Level 138 mg/dL (74-106); Magnesium 1.9 mg/dL (1.6-2.4); NT PRO-BNP 17 pg/mL (<125); Potassium 4.1 mEq/L (3.5-5.1); Protein, Total 7.5 g/dL (6.4-8.2); Sodium Level 138 mEq/L (136-145)
[2024-09-22 02:12] LABS: Bilirubin Direct < 0.2 mg/dL (0-0.2); Bilirubin Indirect, Calculated 0.6 mg/dL (0.2-0.8)
--- NOTE | 2024-09-22 03:47 | RAD REPORT ---
EXAM: CT Head/Brain Without Contrast HISTORY: acute headache COMPARISON: None TECHNIQUE: Head/brain axial images acquired without contrast. Coronal and sagittal reformats created. Exam performed according to departmental dose-optimization program which includes automated exposure control, adjustment of mA and/or kV according to patient size, and/or use of iterative recon struction technique. FINDINGS: No midline shift, mass effect, intracranial hemorrhage, or hydrocephalus. Brain parenchyma unremarkable. Partially imaged large right maxillary sinus mucous retention cyst or polyp. No skull fracture or significant skull lesion. Mastoid air cells clear. IMPRESSION: Unremarkable CT head/brain without contrast. Electronically signed by: Power Holliday MD 09/22/2024 03:41 AM CDT RP Due to temporary technical issues with the PACS/[employer] reporting system, reports are being brianna d by the in-house radiologist without review as a courtesy to ensure prompt reporting the interpreting radiologist is fully responsible for the content of the report. Transcribed Date/Time: 09/22/2024 3:47 AM
--- NOTE | 2024-09-22 04:56 | ER ---
Nurse's Notes [facility] Name: Power Castillo Age: 49 yrs Sex: Male : 1975 Arrival Date: 09/22/2024 Time: 00:53 Bed 8 Private MD: Diagnosis: Chest pain, unspecified;Suspected obstructive sleep apnea, Noncardiac chest pain, adverse reaction to sumatriptan Presentation: 09/22 01:08 Chief complaint: Patient states: chest tightness, arm heaviness, muscle weakness since al5 midnight. 01:08 Coronavirus screen: At this time, the client does not indicate any symptoms associated al5 with coronavirus-19. Ebola Screen: No symptoms or risks identified at this time. Initial Sepsis Screen: Does the patient meet any 2 criteria? No. Patient's initial sepsis screen is negative. Does the patient have a suspected source of infection? No. Patient's initial sepsis screen is negative. Risk Assessment: Do you want to hurt yourself or someone else? Patient reports no desire to harm self or others. Onset of symptoms was September 22, 2024. 01:08 Method Of Arrival: EMS: [facility] al5 01:08 Acuity: JULIA 2 al5 Triage Assessment: 01:09 General: Appears in no apparent distress. comfortable, Behavior is calm, cooperative. al5 Pain: Complains of pain in head and chest. EENT: No signs and/or symptoms were reported regarding the EENT system. Neuro: Level of Consciousness is awake, alert, obeys commands, Oriented to person, place, time, situation, Reports headache. Cardiovascular: Capillary refill < 3 seconds Patient's skin is warm and dry. Respiratory: Airway is patent Respiratory effort is even, unlabored, Respiratory pattern is regular, symmetrical. GI: Abdomen is round non-distended, obese. : No signs and/or symptoms were reported regarding the genitourinary system. Derm: Skin is intact, is healthy with good turgor, Skin is pink, warm \T\ dry. normal. Musculoskeletal: No signs and/or symptoms reported regarding the musculoskeletal system. Historical: - Allergies: 01:09 No Known Allergies; al5 - PMHx: 01:09 Degenerative disc disease; osteoarthritis; spinal stenosis; Hypertensive disorder; al5 neuropathy; liver fibrosis; - PSHx: 01:09 Cholecystectomy; hernia repair; al5 - Immunization history:: Adult Immunizations up to date. - Infectious Disease History:: Denies. - Social history:: Smoking status: unknown. - Family history:: not pertinent. Screenin:10 [facility] ED Fall Risk Assessment (Adult) History of falling in the last 3 months, al5 including since admission No falls in past 3 months (0 pts) Confusion or Disorientation No (0 pts) Intoxicated or Sedated No (0 pts) Impaired Gait No (0 pts) Mobility Assist Device Used No (0 pt) Altered Elimination No (0 pt) Score/Fall Risk Level 0 - 2 = Low Risk Oriented to surroundings, Maintained a safe environment, Hourly rounding (assess needs \T\ fall precautionary measures) done. Abuse screen: Denies threats or abuse. Denies injuries from another. Nutritional screening: No deficits noted. Tuberculosis screening: No symptoms or risk factors identified. Assessment: 01:10 Reassessment: see triage assessment. al5 01:26 Pain: Pain does not radiate. Pain began 1 hour ago. al5 02:45 Reassessment: Patient appears in no apparent distress at this time. Patient and/or al5 family updated on plan of care and expected duration. Pain level reassessed. Patient is alert, oriented x 3, equal unlabored respirations, skin warm/dry/pink. Patient denies pain at this time. Vital Signs: 01:08 BP 157 / 98; Pulse 66; Resp 18; Temp 98.7; Pulse Ox 98% on R/A; Weight 126.1 kg; Height al5 6 ft. 0 in. ; 02:45 BP 133 / 76; Pulse 55; Resp 16; Pulse Ox 93% on R/A; al5 03:00 BP 134 / 79; Pulse 58; Resp 15; Pulse Ox 94% ; al5 03:30 BP 127 / 79; Pulse 59; Resp 20; Pulse Ox 100% ; al5 05:39 BP 132 / 78; Pulse 58; Resp 18; Pulse Ox 98% ; cp4 01:08 Body Mass Index 37.70 (126.10 kg, 182.88 cm) al5 [place] Coma Score: 21:22 Eye Response: spontaneous(4). Motor Response: obeys commands(6). Verbal Response: sp4 oriented(5). Total: 15. ED Course: 00:54 Patient arrived in ED. jj6 00:56 Sedrick Dhaliwal MD is Attending Physician. sp4 01:10 Arm band placed on right wrist. Patient placed in the treatment room, in view of staff al5 members, on cafeteria monitor, on pulse oximetry. 01:11 Patient has correct armband on for positive identification. Bed in low position. Call al5 light in reach. Side rails up X2. Provided Education on: plan of care. Client placed on continuous cardiac and pulse oximetry monitoring. NIBP monitoring applied. quality assurance monitor chassis on. Pulse ox on. 01:11 No provider procedures requiring assistance completed. Maintain EMS IV. Dressing al5 intact. Good blood return noted. Site clean \T\ dry. Gauge \T\ site: 20g r hand. Flushed with 10 mL NS. Patient maintains SpO2 saturation greater than 95% on room air. 01:12 Yen Reid, RN is Primary Nurse. al5 01:12 EKG done, by ED staff. vk 01:22 Basic Metabolic Panel Sent. vk 01:22 CBC with Diff Sent. vk 01:22 LFT's Sent. vk 01:22 Magnesium Sent. vk 01:22 NT PRO-BNP Sent. vk 01:22 PT-INR Sent. vk 01:22 Troponin HS Sent. vk 01:22 Initial lab(s) drawn, by me, sent to lab. vk 01:26 Triage completed. al5 01:39 XRAY Chest (1 view) In Process Unspecified. EDMS 01:50 CT Head Brain wo Cont In Process Unspecified. EDMS 05:40 intact, bleeding controlled, No redness/swelling at site. Pressure dressing applied. cp4 Administered Medications: 01:58 Drug: Ketorolac IVP 30 mg IVP once Route: IVP; Site: right hand; al5 05:40 Follow up: Response: No adverse reaction cp4 01:58 Drug: metoCLOPramide IVP 10 mg IVP once; over 1 to 2 minutes Route: IVP; Site: right al5 hand; 05:40 Follow up: Response: No adverse reaction cp4 01:58 Drug: diphenhydrAMINE IVP 25 mg IVP once Route: IVP; Site: right hand; al5 05:39 Follow up: Response: No adverse reaction cp4 01:58 Drug: Droperidol IVP 2.5 mg IVP once Route: IVP; Site: right hand; al5 05:39 Follow up: Response: No adverse reaction cp4 Medication: 01:10 VIS not applicable for this client. al5 Outcome: 04:56 Discharge ordered by . sp4 05:40 Discharged to home ambulatory, cp4 05:40 Condition: stable 05:40 Discharge instructions given to patient, family, Instructed on discharge instructions, follow up and referral plans. medication usage, Demonstrated understanding of instructions, follow-up care, medications, Prescriptions given X 1, 05:41 Patient left the ED. cp4 Signatures: Dispatcher [employer] EDMS Myranda Bonilla Sergey, MD MD sp4 Lisette Edmonds cp4 Vivien Paiz Amanda RN RN al5
--- NOTE | 2024-09-22 04:57 | EDPHYS ---
Physician Documentation [facility] Name: Power Castillo Age: 49 yrs Sex: Male : 1975 Arrival Date: 09/22/2024 Time: 00:53 Bed 8 Private MD: ED Physician Sedrick Dhaliwal HPI: 09/22 00:56 This 49 yrs old Male presents to ER via Unassigned with complaints of Chest sp4 Tightness. 21:22 49-year-old male presents with complaint of chest tightness. Also complaint of acute sp4 headache. Migraine type headache. Historical: - Allergies: 01:09 No Known Allergies; al5 - PMHx: :09 Degenerative disc disease; osteoarthritis; spinal stenosis; Hypertensive disorder; al5 neuropathy; liver fibrosis; - PSHx: :09 Cholecystectomy; hernia repair; al5 - Immunization history:: Adult Immunizations up to date. - Infectious Disease History:: Denies. - Social history:: Smoking status: unknown. - Family history:: not pertinent. ROS: 21:22 Constitutional: Negative for fever, chills, and weight loss, positive for chest sp4 tightness positive for headache 21:22 All other systems are negative, Exam: 21:22 Constitutional: This is a well developed, well nourished patient who is awake, alert, sp4 and in no acute distress. Head/Face: Normocephalic, atraumatic. Eyes: Pupils equal round and reactive to light, extra-ocular motions intact. Lids and lashes normal. Conjunctiva and sclera are not injected. Cornea within normal limits. Periorbital areas with no swelling, redness, or edema. ENT: Nares patent. No nasal discharge, no septal abnormalities noted. Tympanic membranes are normal and external auditory canals are clear. Oropharynx with no redness, swelling, or masses, exudates, or evidence of obstruction, uvula midline. Mucous membranes moist. Neck: Trachea midline, no thyromegaly or masses palpated, and no cervical lymphadenopathy. Supple, full range of motion without nuchal rigidity, or vertebral point tenderness. Chest/axilla: Normal chest wall appearance and motion. Nontender with no deformity. No lesions are appreciated. Cardiovascular: Regular rate and rhythm with a normal S1 and S2. No gallops, murmurs, or rubs. Normal PMI, no JVD. No pulse deficits. Respiratory: Lungs have equal breath sounds bilaterally, clear to auscultation and percussion. No rales, rhonchi or wheezes noted. No increased work of breathing, no retractions or nasal flaring. Abdomen/GI: Soft, with normal bowel sounds. No distension or tympany. No guarding or rebound. No evidence of tenderness throughout. Back: No spinal tenderness. No costovertebral tenderness. Skin: Warm, dry with normal turgor. Normal color with no rashes, no lesions, and no evidence of cellulitis. MS/ Extremity: Pulses equal, no cyanosis. Neurovascular intact. Full, normal range of motion. Neuro: Awake and alert, GCS 15, oriented to person, place, time, and situation. Cranial nerves II-XII grossly intact. Motor strength 5/5 in all extremities. Sensory grossly intact. Psych: Awake, alert, with orientation to person, place and time. Behavior, mood, and affect are within normal limits 21:22 ECG was reviewed by the Attending Physician. EKG 0108 Vital Signs: 01:08 BP 157 / 98; Pulse 66; Resp 18; Temp 98.7; Pulse Ox 98% on R/A; Weight 126.1 kg; Height al5 6 ft. 0 in. ; 02:45 BP 133 / 76; Pulse 55; Resp 16; Pulse Ox 93% on R/A; al5 03:00 BP 134 / 79; Pulse 58; Resp 15; Pulse Ox 94% ; al5 03:30 BP 127 / 79; Pulse 59; Resp 20; Pulse Ox 100% ; al5 05:39 BP 132 / 78; Pulse 58; Resp 18; Pulse Ox 98% ; cp4 01:08 Body Mass Index 37.70 (126.10 kg, 182.88 cm) al5 [place] Coma Score: 21:22 Eye Response: spontaneous(4). Motor Response: obeys commands(6). Verbal Response: sp4 oriented(5). Total: 15. MDM: 00:58 Medical Screening Exam initiated sp4 01:08 Differential diagnosis: acute pericarditis, anxiety, coronary artery disease chest wall sp4 pain, congestive heart failure esophagitis, gastritis. HEART Score: History: Slightly Suspicious (0), ECG: Normal (0), Age: > 45 and < 65 years (1), Risk Factors: 1 or 2 risk factors (1), Troponin: < or = 1 x Normal Limit (0), Total Score = 2. Data reviewed: vital signs, nurses notes, EMS record, lab test result(s), EKG, radiologic studies, CT scan, plain films. ED course: Troponin x 2 is negative. Patient stable for discharge home.. 04:00 ED course: EXAM: CT Head/Brain Without Contrast HISTORY: acute headache COMPARISON: sp4 None TECHNIQUE: Head/brain axial images acquired without contrast. Coronal and sagittal reformats created. Exam performed according to departmental dose-optimization program which includes automated exposure control, adjustment of mA and/or kV according to patient size, and/or use of iterative reconstruction technique. FINDINGS: No midline shift, mass effect, intracranial hemorrhage, or hydrocephalus. Brain parenchyma unremarkable. Partially imaged large right maxillary sinus mucous retention cyst or polyp. No skull fracture or significant skull lesion. Mastoid air cells clear. IMPRESSION: Unremarkable CT head/brain without contrast. . 09/22 00:57 Order name: Basic Metabolic Panel; Complete Time: 02:59 sp4 09/22 00:57 Order name: CBC with Diff; Complete Time: 02:59 sp4 09/22 00:57 Order name: LFT's; Complete Time: 02:59 sp4 09/22 00:57 Order name: Magnesium; Complete Time: 02:59 sp4 09/22 00:57 Order name: NT PRO-BNP; Complete Time: 02:59 sp4 09/22 00:57 Order name: PT-INR; Complete Time: 02:59 sp4 09/22 00:57 Order name: Troponin HS; Complete Time: 02:59 sp4 09/22 00:57 Order name: TSH; Complete Time: 02:59 sp4 09/22 00:57 Order name: T4 Free; Complete Time: 02:59 sp4 09/22 04:00 Order name: Troponin High Sensitivity; Complete Time: 04:48 sp4 09/22 00:57 Order name: XRAY Chest (1 view) sp4 09/22 01:30 Order name: CT Head Brain wo Cont sp4 09/22 00:57 Order name: Cardiac monitoring; Complete Time: 01:23 sp4 09/22 00:57 Order name: EKG - Nurse/Tech; Complete Time: 01:12 sp4 09/22 00:57 Order name: IV Saline Lock; Complete Time: : sp4 09/22 00:57 Order name: Labs collected and sent; Complete Time: sp4 09/22 00:57 Order name: O2 Per Protocol; Complete Time: sp4 09/22 00:57 Order name: O2 Sat Monitoring; Complete Time: sp4 EC:08 Rate is 66 beats/min. Rhythm is regular. QRS [place] is Normal. [place] interval is normal. QRS sp4 interval is normal. QT interval is normal. No Q waves. T waves are Normal. No ST changes noted. Clinical impression: No evidence of ischemia. Interpreted by me. Reviewed by me. Administered Medications: 01:58 Drug: Ketorolac IVP 30 mg IVP once Route: IVP; Site: right hand; al5 05:40 Follow up: Response: No adverse reaction cp4 01:58 Drug: metoCLOPramide IVP 10 mg IVP once; over 1 to 2 minutes Route: IVP; Site: right al5 hand; 05:40 Follow up: Response: No adverse reaction cp4 01:58 Drug: diphenhydrAMINE IVP 25 mg IVP once Route: IVP; Site: right hand; al5 05:39 Follow up: Response: No adverse reaction cp4 01:58 Drug: Droperidol IVP 2.5 mg IVP once Route: IVP; Site: right hand; al5 05:39 Follow up: Response: No adverse reaction cp4 Disposition Summary: 09/22/24 04:56 Discharge Ordered Notes: Location: Home sp4 Problem: new sp4 Symptoms: have improved sp4 Condition: Stable sp4 Diagnosis - Chest pain, unspecified sp4 - Suspected obstructive sleep apnea, Noncardiac chest pain, adverse reaction to sp4 sumatriptan Followup: sp4 - With: Private Physician - When: 7 - 10 days - Reason: Recheck today's complaints Discharge Instructions: - Discharge Summary Sheet sp4 - Nonspecific Chest Pain, Adult, [id number] sp4 Forms: - Patient Portal Instructions sp4 Prescriptions: - Fioricet 50-300-40 mg Oral capsule - take 1 capsule ORAL route every 8 hours as needed for pain; 30 capsule; sp4 Refills: 0, Product Selection Permitted Signatures: Dispatcher [employer] EDMS Sedrick Dhaliwal MD MD sp4 Yen Reid RN RN al5 Lisette Edmonds cp4 Corrections: (The following items were deleted from the chart) 00:57 00:57 BASIC METABOLIC PANEL+C.LAB.BRZ ordered. EDMS EDMS 00:57 00:57 CBC+H.LAB.BRZ ordered. EDMS EDMS 00:57 00:57 HEPATIC FUNCTION+C.LAB.BRZ ordered. EDMS EDMS 00: 00:57 MAGNESIUM+C.LAB.BRZ ordered. EDMS EDMS 00:57 00:57 PROBNP+C.LAB.BRZ ordered. EDMS EDMS 00:57 00:57 PROTIME (+INR)+COAG.LAB.BRZ ordered. EDMS EDMS 00:57 00:57 Troponin High Sensitivity+C.LAB.BRZ ordered. EDMS EDMS 00:57 00:57 Chest Single View+RAD.RAD.BRZ ordered. EDMS EDMS
--- NOTE | 2024-09-22 06:00 | RAD REPORT ---
XR CHEST 1 VIEW CLINICAL INDICATION: Chest pain COMPARISON: None FINDINGS: SUPPORT DEVICES: None LUNGS/PLEURAL SPACES: Lungs are clear. No pleural effusion. No pneumothorax. HEART/MEDIASTINUM: Within normal range. BONES/UPPER ABDOMEN/SOFT TISSUES: No acute findings. IMPRESSION: No radiographic evidence of active pulmonary process. Electronically signed by: Sherry Mayberry MD 09/22/2024 03:13 AM CDT RP Due to temporary technical issues with the PACS/[employer] reporting system, reports are being brianna d by the in-house radiologist without review as a courtesy to ensure prompt reporting the interpreting radiologist is fully responsible for the content of the report. Transcribed Date/Time: 09/22/2024 6:00 AM
[2024-09-22 10:54] VITALS: TEMP 98.7
[2024-09-22 10:59] VITALS: BP 132/78; O2SAT 98
--- NOTE | 2024-09-23 11:57 | EKG ---
Test Date: 2024-09-22 Test Time: 01:08:31 [employer] Worker: ANDREI MEASUREMENT RESULTS: Intervals: Rate: 66 NC: 154 QRSD: 94 QT: 406 QTc: 425 [place]: P: 44 NC: 154 QRS: -22 T: 70 INTERPRETIVE STATEMENTS: Normal sinus rhythm Normal ECG Compared to ECG 02/29/2024 22:36:26 No significant changes Electronically Signed On 09-23-24 11:53:48 CDT by Andry Haley
== END 2024-09-22 05:41 | disposition home or self-care (01) ==
LOC: ER 00:53
DX: R07.89 Other chest pain (principal); T39.8X5A Adverse effect of other nonopioid analgesics and antipyretics, not elsewhere classified, initial encounter; R51.9 Headache, unspecified
CPT/HCPCS: 36415; 70450; 71045; 80048; 80076; 83735; 83880; 84439; 84443; 84484; 85025; 85610; 93005; J1200; J1790; J2765

== ENCOUNTER 2025-01-11 10:05 | Emergency (ER) | payer OTHER ==
--- OUTSIDE RECORDS SUMMARY | 2025-01-11 10:09 | XMS REPORT | Continuity of Care Document ---
Author Name Unknown Address [address] [facility] [place] [address] [facility] Address [address] [facility] [place] [address] Care Team Providers Care It Application Administrator Name Role Phone Pcp, Pcp Primary Care Physician TAWNYA Mercedes Attending Clinician Mario Lubin MD, Tawnya Attending Clinician [phone] NAZANIN THOMAS Attending Clinician Corrie Barrow MD Attending Clinician [phone] Nazanin Thomas MD Attending Clinician [phone] System, Provider Not In Attending Clinician Unav kathrinnickie LUIS HARRISON Attending Clinician Unavailab le Doctor Unassigned, Lead Attending Clinician U jeffy ZACHERY BONNER Attending Clinician Unavailable MEHDI Attending Clinician Unavailable Dexter Hugo MD Attending Clinician [phone] DEXTER HUGO Attending Clinician Unavail able DEXTER HUGO Attending Clinician Unavail able NAZANIN THOMAS Admitting Clinician Unavailab Nazanin Prado MD Admitting Clinician [phone] MEHDI Admitting Clinician Unavailable Payers Payer Name Policy Type Policy Number Effective Date Expirati on Date Source FORMERLY [facility] [id number] 2023 00:00:[address] [email or web address] Other [id number] 083 1998 00:00:00 Problems Condition Name Condition Details Condition Category Status Onset Date Resolution Date Last Treatment Date Treating Clinician Comments Source Primary hypertensi on Primary hypertensi on Disease Active 11-25 00:00: 00 [facility] Obesity (BMI 30-39.9) Obesity (BMI 30-39.9) Disease Active 11-25 00:00: 00 [facility] Hyperlipid emia, unspecifie d hyperlipid emia type Hyperlipid emia, unspecifie d hyperlipid emia type Disease Active 11-25 00:00: 00 [facility] Family history of early CAD Family history of early CAD Disease Active 11-25 00:00: 00 [facility] Chest pain, unspecifie d type Chest pain, unspecifie d type Disease Active 11-25 00:00: 00 [facility] AMY (obstructi ve sleep apnea) AMY (obstructi ve sleep apnea) Disease Active 11-25 00:00: 00 [facility] TIA (transient ischemic attack) TIA (transient ischemic attack) Disease Active 09-27 00:00: 00 Hannah Brower Epic Complicate d migraine Complicate d migraine Disease Active 09-27 00:00: 00 Hannah Saul HTN (hypertens ion) HTN (hypertens ion) Disease Active 09-27 00:00: 00 Hannah Salu NAVARRETE (nonalcoho lic steatohepa titis) NAVARRETE (nonalcoho lic steatohepa titis) Disease Active 09-27 00:00: 00 Hannah Saul 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 Disease Active 09-26 00:00: 00 Hannah Saul No known active problems No known active problems Disease [facility] Allergies, Adverse Reactions, Alerts Allergy Name Allergy Type Status Severity Reaction(s) Onset Date Inactive Date Treating Clinician Comments Source No Known Allergie s DA Active U 08-23 00:00: 00 [facility] No Known Allergie s DA Active U 08-23 00:00: 00 [facility] NO KNOWN ALLERGIE S Drug Class Active [facility] Family History Family Member Diagnosis Comments Start Date Stop Date Sourc e Natural mother Coronary Heart Disease [facility] Social History Social Habit Start Date Stop Date Quantity Comments Source Gender identity Tony Saul Sexual orientation M valerie Saul History of tobacco use Cigarette Smoker [facility] Tobacco use and exposure 2024-11-25 00:00:00 2024-11-25 00:00:00 Smokeless tobacco non-user [facility] History of Social function 2024-11-25 00:00:00 2024-11-25 00:00:00 [facility] Exposure to SARS-CoV-2 (event) 2022-04-23 00:00:00 2022-05-03 12:41:00 Not sure [facility] Sex assigned at 1975 00:00:00 1975 00:00:00 [facility] Smoking Status Start Date Stop Date Source Tobacco smoking consumption unknown [facility] Ex-smoker 2024-11-25 00:00:00 2024-11-25 00:00:00 [facility] Medications Ordered Medication Name Filled Medication Name Start Date Stop Date Current Medication? Ordering Clinician Indication Dosage Frequency Signature (SIG) Comments Components Source semaglutide , weight loss, 0.25 mg/0.5 mL PnIj SC injection 10-28 00:00: 00 Yes inject under the skin. [facility] aspirin 81 mg chewable tablet 10-07 00:00: 00 Yes 81mg Take 1 tablet by mouth. [facility] topiramate 50 MG tablet topiramate 50 MG tablet 10-06 00:00: 00 09-28 00:00 :00 No 50mg Take 1 tablet by mouth at bedtime. Do not start before October 06, 2024. Hannah Saul aspirin 81 MG chewable tablet aspirin 81 MG chewable tablet 09-29 00:00: 00 10-29 23:59 :00 No 81mg QD Chew 1 tablet 1 time each day. Hannah Saul Resmetirom (Rezdiffra) 100 MG tablet Resmetirom (Rezdiffra) 100 MG tablet 09-28 13:21: 50 09-28 00:00 :00 No 100mg QD Take 100 mg by mouth 1 time each day. Hannah Saul cetirizine (ZyrTEC) tablet 10 mg cetirizine (ZyrTEC) tablet 10 mg 09-28 09:30: 00 Yes 10mg QD 10 mg, Oral, Daily, First dose on Fri09/28/24 at 0930 Hannah Saul fluticasone (Flonase) nasal spray 2 spray fluticasone (Flonase) nasal spray 2 spray 09-28 09:30: 00 Yes 2{spray } QD 2 spray, Each Nostril, Daily, First dose on Fri09/28/24 at 0930, Shake gently. Before first use, prime pump (press 6 times until fine spray appears). After use, clean tip and replace cap. Hannah Saul benzocaine- menthol (Chlorasept ic) 6-10 MG lozenge 1 lozenge benzocaine- menthol (Chlorasept ic) 6-10 MG lozenge 1 lozenge 09-28 08:05: 12 Yes 1{lozen ge} 1 lozenge, Mouth/Thro at, Every 2 hour PRN, sore throat, Starting on Fri09/28/24 at 0805 Hannah Saul gabapentin (Neurontin) 300 MG capsule gabapentin (Neurontin) 300 MG capsule 09-28 00:00: 00 10-28 23:59 :00 No 300mg [id number] 3D Take 1 capsule by mouth in the morning and 1 capsule at noon and 1 capsule before bedtime. Hannah Brower [facility] topiramate (Topamax) 25 MG tablet topiramate (Topamax) 25 MG tablet 09-28 00:00: 00 10-24 23:59 :00 No 50mg Take 1 tablet by mouth at bedtime for 13 days, THEN 2 tablets at bedtime for 13 days. Hannah Brower [facility] methocarbam ol (Robaxin) 750 MG tablet methocarbam ol (Robaxin) 750 MG tablet 09-28 00:00: 00 10-12 23:59 :00 No 750mg [id number] 3D Take 1 tablet by mouth in the morning and 1 tablet at noon and 1 tablet before bedtime. Do all this for 14 days. Hannah Brower [facility] topiramate 50 MG tablet topiramate 50 MG tablet 09-28 00:00: 00 09-28 00:00 :00 No Take 0.5 tablets by mouth at bedtime for 13 days, THEN 0.5 tablets at bedtime. Hannah Brower [facility] melatonin tablet 3 mg melatonin tablet 3 mg 09-27 19:15: 04 Yes 3mg QD 3 mg, Oral, Nightly PRN, sleep, Starting on Fri09/27/24 at 1915 Hannah Brower [facility] acetaminoph en (Tylenol) tablet 650 mg acetaminoph en (Tylenol) tablet 650 mg 09-27 19:14: 46 Yes 650mg Q6H 650 mg, Oral, Every 6 hours PRN, mild pain (1-3), Starting on Fri09/27/24 at 191, For 3 doses, Max acetaminop hen = 4000mg/day (4gm/day) Hannah Brower Epic ketorolac (Toradol) injection 30 mg ketorolac (Toradol) injection 30 mg 09-27 18:00: 00 09-27 17:12 :00 No 30mg 30 mg, Intravenou s, Once, On Fri09/27/24 at 1800, For 1 dose Hannah Brower Epic methocarbam ol (Robaxin) tablet 750 mg methocarbam ol (Robaxin) tablet 750 mg 09-27 16:45: 00 Yes 750mg Q.[id number] 3D 750 mg, Oral, Every 8 hours scheduled, First dose on Fri09/27/24 at 1645 Hannah Brower Epic sulfur hexafluorid e lipid-type A microsphere s (Lumason) 60.7-25 MG Injectable suspension 2 mL sulfur hexafluorid e lipid-type A microsphere s (Lumason) 60.7-25 MG Injectable suspension 2 mL 09-27 14:59: 51 09-27 14:59 :00 No 2mL 2 mL, Intravenou s, Once in imaging, Starting on Fri09/27/24 at 1459, For 1 dose, Reconstitu te with 5 mL of PF NS only using provided Mini-Junior ; shake vigorously for 20 sec until a homogenous white milky suspension forms. Use immediatel y. May repeat once during procedure. Hannah Brower Epic lisinopril tablet 10 mg lisinopril tablet 10 mg 09-27 13:15: 00 Yes 10mg QD 10 mg, Oral, Daily, First dose on Fri09/27/24 at 1315, Hold for SBP<120 Hannah Brower Epic topiramate (Topamax) tablet 25 mg topiramate (Topamax) tablet 25 mg 09-27 12:30: 00 10-04 08:59 :00 No 25mg Q.5D 25 mg, Oral, Every 12 hours scheduled, First dose on Fri09/27/24 at 1230, For 7 days, Do not crush, chew, or split. Hannah Brower Epic sodium chloride 0.9 % bolus 500 mL sodium chloride 0.9 % bolus 500 mL 09-27 12:30: 00 09-27 17:36 :00 No 500mL 500 mL, Intravenou s, at 500 mL/hr, Administer over 1 Hours, Once, On Fri09/27/24 at 1230, For 1 dose Hannah payne [facility] Kg magnesium sulfate IVPB 2 g magnesium sulfate IVPB 2 g 09-27 12:30: 00 09-27 19:01 :00 No 2g 2 g, Intravenou s, at 25 mL/hr, Administer over 2 Hours, Once, On Fri09/27/24 at 1230, For 1 dose Hannah Brower Kg ibuprofen tablet 600 mg ibuprofen tablet 600 mg 09-27 11:21: 35 09-27 12:19 :51 No 600mg Q6H 600 mg, Oral, Every 6 hours PRN, mild pain (1-3), Starting on Fri09/27/24 at 1121 Hannah Brower Kg traMADol (Ultram) tablet 100 mg traMADol (Ultram) tablet 100 mg 09-27 08:15: 00 09-27 09:17 :00 No 100mg 100 mg, Oral, Once, On Fri09/27/24 at 0815, For 1 dose Hannah payne [place] Kg gadobenate dimeglumine (Multihance ) injection 16 mL gadobenate dimeglumine (Multihance ) injection 16 mL 09-27 01:05: 15 09-27 00:21 :00 No .1mmol/ kg 16 mL (rounded from 16.2 mL = 0.1 mmol/kg ?81 kg), Intravenou s, Once in imaging, Starting on Fri09/27/24 at 0105, For 1 dose Hannah Brower Kg gabapentin (Neurontin) capsule 300 mg gabapentin (Neurontin) capsule 300 mg 09-26 22:00: 00 Yes 300mg Q.[id number] 3D 300 mg, Oral, Every 8 hours scheduled, First dose on Fri09/26/24 at 2200 Hannah Brower Kg ibuprofen tablet 400 mg ibuprofen tablet 400 mg 09-26 21:45: 00 09-26 21:54 :00 No 400mg 400 mg, Oral, Once, On Fri09/26/24 at 2145, For 1 dose Hannah Saul heparin injection 5,000 Units heparin injection 5,000 Units 09-26 21:05: 00 Yes 5000U Q8H 5,000 Units, Subcutaneo us, Every 8 hours, First dose on Fri09/26/24 at 2115 Hannah Saul aspirin chewable tablet 81 mg aspirin chewable tablet 81 mg 09-26 21:05: 00 Yes 81mg QD 81 mg, Oral, Daily, First dose on Fri09/26/24 at 2115 Hannah Saul atorvastati n (Lipitor) tablet 80 mg atorvastati n (Lipitor) tablet 80 mg 09-26 21:05: 00 Yes 80mg QD 80 mg, Oral, Daily, First dose on Fri09/26/24 at 2115 Hannah Saul sennosides (Senokot) tablet 8.6 mg sennosides (Senokot) tablet 8.6 mg 09-26 21:00: 00 Yes 1{tbl} Q.5D 8.6 mg (1 tablet), Oral, Every 12 hours scheduled, First dose on Fri09/26/24 at 2100, Hold for Diarrhea Hannah Saul sodium chloride (NS) 0.9 % flush 10 mL sodium chloride (NS) 0.9 % flush 10 mL 09-26 21:00: 00 Yes 10mL Q.5D 10 mL, Intravenou s, Every 12 hours scheduled, First dose on Fri09/26/24 at 2100, Administer at least once every 12 hours Hannah Saul sodium chloride 0.9 % infusion sodium chloride 0.9 % infusion 09-26 20:45: 00 09-27 12:19 :58 No 75mL/h 75 mL/hr, Intravenou s, Continuous , Starting on Fri09/26/24 at 204 Hannah Saul insulin lispro (HumaLOG, Admelog) injection 1-4 Units insulin lispro (HumaLOG, Admelog) injection 1-4 Units 09-26 19:51: 46 Yes 1U Q.[id number] 3D 1-4 Units, Subcutaneo us, 3 times daily PRN, high blood sugar, with meals, Starting on Fri09/26/24 at 1950, For BG < 70, follow hypoglycem ia protocol and notify ordering provider. If patient can eat or drink, give oral carbohydra te as ordered per hypoglycem ia protocol. If patient NPO, give dextrose 50 % IV as ordered per hypoglycem ia protocol. If NPO and no IV access, give glucagon IM as ordered per hypoglycem ia protocol. Check BG every 15 minutes and repeat treatment if continued BG < 80., Correction Insulin Dosing: (DO NOT CHANGE DEFAULT SELECTION/ VALUES): Very Low, BG < 70 instructio ns: Follow Hypoglycem ia Orders, BG 70-149 instructio ns: No Dose Needed, BG 150-199: 1, BG 200-249: 2, BG 250-299: 3, BG >/= 300: 4, BG > 300 instructio ns: Contact Provider Hannah Saul glucagon injection 1 mg glucagon injection 1 mg 09-26 19:51: 39 Yes 1mg 1 mg, Intramuscu lar, As needed, For BG < 70 mg/dL if no IV access and patient is either Unconsciou s, unable to swallow or npo, Starting on Fri09/26/24 at 1950, For BG < 70 mg/dL if no IV access and patient is either Unconsciou s, unable to swallow or npo and notify MD. Hannah Brower [facility] [employer] dextrose 50 % solution 25 g dextrose 50 % solution 25 g 09-26 19:51: 39 Yes 25g 25 g, Intravenou s, As needed, other, if Blood Glucose </= 50 mg/dL, Starting on Fri09/26/24 at 1950, If BG </=50 mg/dL, give 50 mL of D50W IV push STAT and notify MD. Hannah Brower [facility] [employer] dextrose 50 % solution 12.5 g dextrose 50 % solution 12.5 g 09-26 19:51: 39 Yes 12.5g 12.5 g, Intravenou s, As needed, low blood sugar, if Blood Glucose 51- 69 mg/dL, Starting on Fri09/26/24 at 1950, For BG 51-69 mg/dL and patient UNCONSCIOU S OR UNABLE TO SWALLOW OR NPO: Give 25 mL of D50W IV push and notify . Hannah Saul sodium chloride (NS) 0.9 % flush 10 mL sodium chloride (NS) 0.9 % flush 10 mL 09-26 19:48: 04 Yes 10mL 10 mL, Intravenou s, As needed, line care, Line Flush, Starting on 09/26/24 at 194 Hannah Brower Epic lisinopriL 10 mg tablet 2023-05 00:00: 00 Yes 10mg Take 1 tablet by mouth. [facility] tamsulosin 0.4 mg 24 hr capsule 2021-05 00:00: 00 Yes .4mg 0.4 mg. [facility] cyclobenzap rine 10 mg tablet 2021-05 00:00: 00 Yes 10mg 1 tablet. [facility] gabapentin 300 mg capsule 2021-05 00:00: 00 Yes 300mg 1 capsule. [facility] docusate 100 mg capsule 2021-05 00:00: 00 Yes 100mg 100 mg. [facility] finasteride 5 mg tablet 2021-05 00:00: 00 Yes 5mg 5 mg. [facility] atorvastati n 40 mg tablet 02-07 00:00: 00 Yes 20mg 20 mg. [facility] cetirizine 10 mg tablet 01-21 00:00: 00 Yes 10mg 10 mg. [facility] meloxicam 15 mg tablet 01-21 00:00: 00 Yes 15mg 15 mg. [facility] chlorhexidi ne 4 % external liquid 05-30 00:00: 00 Yes APPLY SMALL AMOUNT TO THE SKIN TIW FOR INFECTION AVOID HEAD AND NECK [facility] amoxicillin 500 mg capsule 09-07 00:00: 00 Yes 500mg Take 1 capsule by mouth 3 (three) times daily. [facility] ibuprofen 800 mg tablet 2018-0 4-15 00:00: 00 Yes 800mg Take 1 tablet by mouth every 8 (eight) hours as needed (PAIN). [facility] Vital Signs Vital Name Observation Time Observation Value Comments Amaya deshpande Systolic blood pressure 2024-11-25 15:42:00 130 mm[Hg] [facility] Diastolic blood pressure 2024-11-25 15:42:00 80 mm[Hg] [facility] Heart rate 2024-11-25 15:42:00 64 /min [facility] height 2024-11-25 15:42:00 182.9 cm [facility] Body weight 2024-11-25 15:42:00 126.236 kg [facility] BMI 2024-11-25 15:42:00 37.74 kg/m2 [facility] Oxygen saturation in Arterial blood by Pulse oximetry 2024-11-25 15:42:00 97 /min [facility] Oxygen saturation in Arterial blood by Pulse oximetry 2024-09-28 11:32:52 95 /min [facility] Body temperature 2024-09-28 11:32:41 36.39 [facility] Heart rate 2024-09-28 11:00:00 53 /min [facility] Res[facility] rate 2024-09-28 11:00:00 20 /min [facility] Systolic blood pressure 2024-09-28 10:30:00 142 mm[Hg] [facility] Diastolic blood pressure 2024-09-28 10:30:00 81 mm[Hg] [facility] Body height 2024-09-27 14:36:00 180.3 cm [facility] Body weight 2024-09-27 14:36:00 126.1 kg [facility] BMI 2024-09-27 14:36:00 38.77 kg/m2 [facility] Oxygen saturation in Arterial blood by Pulse oximetry 2024-09-28 11:32:52 95 /min [facility] Body temperature 2024-09-28 11:32:41 36.39 Elsa [facility] Epic Heart rate 2024-09-28 11:00:00 53 /[facility] 2024-09-28 11:00:00 20 /min Tyson Brower [facility] Systolic blood pressure 2024-09-28 10:30:00 142 mm[Hg] Tyson hernandez Epic Diastolic blood pressure 2024-09-28 10:30:00 81 mm[Hg] Tyson Saul Body height 2024-09-27 14:36:00 180.3 cm Tony Brower Epic Body weight 2024-09-27 14:36:00 126.1 kg Tony Brower Epic BMI 2024-09-27 14:36:00 38.77 kg/m2 Tonyanna Brower [facility] Systolic blood pressure 2023-08-11 14:25:00 161 mm[Hg] [facility] Diastolic blood pressure 2023-08-11 14:25:00 85 mm[Hg] [facility] Heart rate 2023-08-11 14:25:00 63 /min Unive [facility] Body temperature 2023-08-11 14:25:00 37 Elsa [facility] Respiratory rate 2023-08-11 14:25:00 18 /min [facility] Body weight 2023-08-11 14:25:00 122.471 kg Univ [facility] BMI 2023-08-11 14:25:00 36.62 kg/m2 Univ [facility] Oxygen saturation in Arterial blood by Pulse oximetry 2023-08-11 14:25:00 97 /min [facility] Systolic blood pressure 2022-05-03 20:15:00 129 mm[Hg] [facility] Diastolic blood pressure 2022-05-03 20:15:00 86 mm[Hg] [facility] Heart rate 2022-05-03 20:15:00 73 /min [facility] 2022-05-03 20:15:00 182.9 cm [facility] weight 2022-05-03 20:15:00 113.399 [facility] BMI 2022-05-03 20:15:00 33.91 kg/m2 [facility] Oxygen saturation in Arterial blood by Pulse oximetry 2022-05-03 20:15:00 97 /min [facility] Systolic blood pressure 2024-11-25 15:42:00 130 mm[Hg] [facility] Diastolic blood pressure 2024-11-25 15:42:00 80 mm[Hg] [facility] Heart rate 2024-11-25 15:42:00 64 /min [facility] Body height 2024-11-25 15:42:00 182.9 cm [facility] Body weight 2024-11-25 15:42:00 126.236 kg [facility] BMI 2024-11-25 15:42:00 37.74 kg/m2 [facility] Oxygen saturation in Arterial blood by Pulse oximetry 2024-11-25 15:42:00 97 /min [facility] Body temperature 2023-08-11 14:25:00 37 Elsa [facility] Respiratory rate 2023-08-11 14:25:00 18 /min [facility] Procedures Procedure Date / Time Performed Performing Clinician Source HB ECG ROUTINE & RHYTHM STRIP 2024-11-25 15:47:09 Tawnya Lubin [facility] POCT Glucose 2024-10-26 00:00:00 [facility] Basic Metabolic Panel 2024-09-30 00:00:00 [facility] Complete Blood Count (no diff) 2024-09-30 00:00:00 [facility] BASIC METABOLIC PANEL 2024-09-28 05:39:00 Kenia Lee Mitali [facility] AMMONIA LEVEL 2024-09-28 05:39:00 Laura Lee [facility] COMPLETE BLOOD COUNT (NO DIFF) 2024-09-28 05:39:00 Kenia Lee [facility] CREATINE KINASE (CK TOTAL) 2024-09-27 17:26:00 Azucena Burris [facility] TRANSTHORACIC ECHO (TTE) COMPLETE W/ CONTRAST AND STRAIN 2024-09-27 14:50:00 Timothy Montilla [facility] AMMONIA LEVEL 2024-09-27 13:33:00 Hari Burris [facility] BASIC METABOLIC PANEL 2024-09-27 01:49:00 NiktabeMonisha [facility] MAGNESIUM LEVEL 2024-09-27 01:49:00 Niktabe [facility] PHOSPHORUS LEVEL 2024-09-27 01:49:00 [facility] 2024-09-27 01:49[facility] W/DIFF AND PLATELET 2024-09-27 01:49:00 Niktabe [facility] THYROID STIMULATING HORMONE W/ REFLEX FREE T4 2024-09-27 01:49:00 Eladia [facility] COMPLETE BLOOD COUNT 2024-09-27 01:49:00 [facility] 2024-09-27 01:49:00 Joshua Montilla [facility] MRI BRAIN W AND WO IV CONTRAST 2024-09-27 00:37:00 [facility] 2024-09-26 23:29:04 [facility] 2024-09-26 23:29:03 [facility]INE (8 DRUGS) 2024-09-26 23:22:00 Eladia [facility] UA WITH CULTURE IF INDICATED 2024-09-26 23:22:00 Eladia [facility] ECG 12-LEAD 2024-09-26 22:03:43 [facility]PRE[facility]ENSIVE METABOLIC PANEL 2024-09-26 21:27:00 Eladia [facility] LIPID PANEL W/CALCULATED LDL 2024-09-26 21:27:00 Eladia [facility] AMMONIA LEVEL 2024-09-26 21:27:00 [facility]adia [facility] HEMO[facility] A1C 2024-09-26 21:27:00 [facility] COMPLETE BLOOD COUNT W/DIFF AND PLATELET 2024-09-26 21:27:00 Niktabe, [facility] PROTIME-INR 2024-09-26 21:27:00 Timothy Montilla [facility] PTT 2024-09-26 21:27:00 Timothy Montilla [facility] POC GLUCOSE UNSOLICITED RESULTS 2024-09-26 21:27:00 Corrie Vazquez [facility] COMPLETE BLOOD COUNT 2024-09-26 21:27:00 Sen Montilla [facility] AUTOMATED DIFFERENTIAL 2024-09-26 21:27:00 Joshua Montilla [facility] XR external body 2024-09-26 00:00:00 Tony rial [place] [facility] AMYLASE 2023-08-11 15:20:00 [facility] LIP[facility] 2023-08-11 15:20:00 Luis Harrison Un [facility] TROPONIN I 2023-08-11 15:20:00 Luis [facility] COMP. METABOLIC PANEL (40636) 2023-08-11 15:20:00 Luis Harrison [facility] CBC WITH DIFF 2023-08-11 15:20:00 Luis Harrison [facility] URINALYSIS 2023-08-11 15:20:00 Luis Harrison Un [facility] CONSENT/REFUSAL FOR DIAGNOSIS AND TREATMENT 2023-08-11 14:13:54 Doctor Unassigned, Lead [facility] AUTHORIZATION FOR RELEASE OF PHI 2022-09-27 05:01:00 Doctor Unassigned, Lead [facility] ASSIGNMENT OF BENEFITS 2022-05-03 18:40:00 Docto r Unassigned, Lead [facility] Plan of Care Planned Activity Planned Date Details Comments Source Encounters Start Date/Time End Date/Time Encounter Type Admission Type Attending Clinicians Care Facility Care Department Encounter ID Source 2025-01-11 00:00:00 2025-01-11 00:00:00 Outpatient TAWNYA PETERSON [facility] [id number] [facility] 2024-12-23 00:00:00 2024-12-23 23:59:00 Outpatient R TAWNYA LUBIN [facility] [id number] [facility] 2024-12-23 00:00:00 2024-12-23 00:00:00 [id number] 2024-12-23 00:00:00 2024-12-23 00:00:00 [facility] [id number] [facility] 2024-12-23 00:00:00 2024-12-23 00:00:00 Outpatient R TAWNYA LUBIN [facility] [id number] [facility] 2024-11-25 10:40:00 2024-11-25 11:06:56 Office Visit Tawnya Peterson 1.2.840.1 [id number] 3.104.2.7 .[id number] [facility] 2024-11-25 00:00:00 2024-11-25 00:00:00 Travel 1.2.840.1 [id number] 3.104.2.7 .[id number] .8 1.2.840.114 350.1.13.10 4.2.7.3.698 [id number] [facility] 2024-09-26 19:06:00 2024-09-28 13:21:00 Inpatient Emergency NAZANIN THOMAS [facility] Neurology [id number] [facility] 2024-09-26 19:06:00 2024-09-28 13:21:00 Hospital Encounter TaylorCorrie Kyrillos [facility] 1..840.114 350.1.13.70 8.2.7.2.686 [id number] [facility] 2024-09-27 00:00:00 2024-09-27 00:00:00 Orders Only System, Provider Not In [facility] 1.2.840.114 350.1.13.70 8.2.7.2.686 [id number] Hannah Brower [facility] 2024-09-26 23:29:04 2024-09-26 23:59:00 Outpatient [facility] [id number] [facility] 2024-09-26 23:29:03 2024-09-26 23:59:00 Outpatient [facility] [id number] [facility] 2024-09-26 22:09:00 2024-09-26 23:59:00 Outpatient [facility] [id number] [facility] 2023-08-11 09:25:00 2023-08-11 11:28:00 Emergency X LUIS HARRISON [facility] ERT [id number] [facility] 2023-08-11 09:25:00 2023-08-11 11:28:00 Emergency Luis [facility] 1.840.114 350.1.13.10 4.2.7.2.686 [id number] [facility] 2022-09-27 00:00:00 2022-09-27 00:00:00 Orders Only Doctor Unassigned, Lead [facility] 1..840.114 350.1.13.10 4.2.7.2.686 [id number] [facility] 2022-08-02 10:30:00 2022-08-02 10:30:00 Outpatient ZACHERY BANEGAS [facility] [id number] [facility] 2022-05-03 14:20:00 2022-05-03 15:19:[address] Hugo [facility] EPI KRISHNA?[facility] 1..840.114 350.1.13.10 4.2.7.2.686 [id number] [facility] 2022-05-03 14:20:00 2022-05-03 15:19:18 Outpatient DEXTER LAUREN HOWARD [facility] [id number] [facility] 2022-05-03 00:00:00 2022-05-03 00:00:00 Orders Only Doctor Unassigned, Lead [facility] 1.2.840.114 350.1.13.10 4.2.7.2.686 [id number] [facility] 2020-08-23 17:37:04 2020-08-23 17:37:04 Inpatient [facility] [id number] [facility] Results Test Description Test Time Test Comments Results Result Co mments [facility] [id number] 16:19:04* Test Item Value Reference Range Interpretation Comme nts BSA (test code = 8795431530) 2.51 m2 LV est EF (test code = 8577869368) 68 % LVEF 3D (test code = 7379786765) 73 % LV biplane EF (test code = 1001443594) 60.9 % LV A2C EF (test code = 4456850057) 64 % LV A4C EF (test code = 7393171777) 60 % LV stroke vol (test code = 3532218964) 95.94 ml LV SI (BP) (test code = 9091196397) 20.85 ml/m2 LV SI (A2C) (test code = 9072666623) 17.98 ml/m2 LV SI (A4C) (test code = 0560694221) 26.62 ml/m2 LV SV (BP) (test code = 0974559539) 52.4 ml LV SI (A2C) (test code = 8063687307) 45.2 ml LV SV (A4C) (test code = 4094315544) 66.9 ml LVIDd (test code = 0778379139) 54 mm LV ESV BP (test code = 9141243043) 33.7 mL LVIDs (test code = 5465055003) 33 mm LV ESV A2C (test code = 3582285452) 25.6 mL LV EDV BP (test code = 3362445518) 86.1 mL LV ESV A4C (test code = 9997903822) 44.1 mL LV EDV A2C (test code = 4792939354) 70.8 mL LV ESV 3D (test code = 5195799143) 70 cm3 LV EDV A4C (test code = 5198802585) 111 mL LV ESV 2D (test code = 9487105) 45.44 mL LV EDV 3D (test code = 6361881286) 255 ml LV EDV 2D (test code = 6699810) 142.52 mL IVSd (test code = 3394708338) 11 mm LVPWd (test code = 5175551996) 11 mm LVOT diam (test code = 0282308485) 21 mm LVOT area (test code = 4007596757) 3.46 cm2 Fractional Shortening 2D (test code = 6027191144) 38 % LVLd (A2C) (test code = 4420127180) 74.5 mm LVLd (A4C) (test code = 5948442923) 76.7 mm LVLs (A2C) (test code = 9826422711) 63.8 mm LVLs (A4C) (test code = 7959362743) 66.1 mm MV E pk maricruz (test code = 9814081550) 0.68 m/s MV A pk maricruz (test code = 0344396626) 0.57 m/s MV E/A ratio (test code = 4787360867) MV e' lateral maricruz (test code = 4631695137) 10.1 cm/s MV DT (test code = 3735075226) 211 ms MV e' septal maricruz (test code = 6654051) 7.45 cm/s MV E/e' lateral (test code = 2947307) LA vol index (test code = 8252719811) 20.01 mL/m2 MV E/e' septal (test code = 2557205614) LA vol BP (test code = 6690995504) 50.3 ml LVOT pk maricruz (test code = 4944510407) 1.28 m/s LVOT mn grad (test code = 1100990330) mmHg LVOT Vmean (test code = 2209529843) 0.81 m/s LVOT VTI (test code = 5293049977) 27.7 cm LA area A2C (test code = 7133689595) 16.7 cm2 LA area A4C (test code = 3501211428) 20.3 cm2 LA size (test code = 7877176758) 38 mm LA Vol I BSA (test code = 8852192999) 16.59 ml/m2 LA Vol I (A4C) BSA (test code = 2641188627) 23.95 ml/m2 LA ESV A2C (test code = 9331438593) 41.248606680618247 mL LA ESV A4C (test code = 5572221868) 41.346610340181887 mL RV-lizarraga basal diam (test code = 0106158182) 42 cm RV-lizarraga mid diam (test code = 8249121051) 31 cm RV-lizarraga longitudinal diam (test code = 3390017245) 70 cm RV NASIM (test code = 2343717606) 7.82 cm2 RV BARBARA (test code = 9883122858) 16.1 cm2 RVOT VTI (test code = 9262625869) 17.5 cm RVOT pk maricruz (test code = 0743433871) 0.72 m/s TAPSE (test code = 4182371598) 24 mm RVOT Vmean (test code = 8306368131) 0.49 m/s AV mn grad (test code = 2314409817) mmHg AV pk grad (test code = 9004614782) mmHg AV mn maricruz (test code = 0667930321) 0.99 m/s AV pk maricruz (test code = 5178991618) 1.54 m/s AV VTI (test code = 3261674501) 34.5 cm LVOT pk grad (test code = 8213995546) mmHg AV area cont VTI (test code = 6474084100) 2.78 cm2 AV area pk maricruz (test code = 9802460196) 2.88 cm2 LVOT Vmax/AV Vmax (test code = 5625103905) 0.83 {ratio} MV mn grad (test code = 9926590230) mmHg MV pk grad (test code = 2089496998) mmHg MV mn maricruz (test code = 6479056812) 0.434 m/s MV area cont eq (test code = 4486507523) 2.53 cm2 MV VTI (test code = 7040250795) 37.9 cm PV mn grad (test code = 9672334850) mmHg PV pk maricruz (test code = 7938215596) 1.26 m/s PV pk grad (test code = 7513416111) mmHg PV VTI (test code = 1660550) 30 cm RVOT mn grad (test code = 9067265665) mmHg RVOT pk grad (test code = 8418674803) mmHg PV mn maricruz (test code = 6204909194) 0.87 m/s Ascending aorta (test code = 9272944562) [address] junction (test code = 8802344553) 25 mm Ao Root diam diastole (test code = 2323997009) 34 mm IVC size (test code = 1377404691) 19 mm MV max maricruz (test code = 5380514925) 1.02 cm/s RV FAC 2D (test code = 2469415948) RA vol (test code = 0664730630) 16.3 mL/m2 IVC prox (test code = 4499894639) 18.312730492706709 cm IVSd 2D (test code = 5298693) 10.5 cm Est RA pressure (test code = 6361733684) mmHg LV stroke vol index (test code = 88490523) 38.17 ml/m2 LV LVIDd index (test code = 10824100) 21.56 mm/m2 LV ESV index BP (test code = 5283977673) 13.41 mL/m2 LVIDs index (test code = 55392943) 13.29 mm/m2 LV ESV index A2C (test code = 7482787398) 10.18 ml/m2 LV EDV index BP (test code = 6234716697) 34.25 mL/m2 LV ESV index A4C (test code = 0581574663) 17.55 ml/m2 LV EDV index A2C (test code = 8445188204) LV EDV index A4C (test code = 1789016935) 44.16 ml/m2 LV ESV index 2D (test code = 2306763031) 18.08 ml/m2 LV EDV index 2D (test code = 5545384009) 56.7 ml/m2 LV RWT 2D (test code = 5031731801) LV mass 2D (test code = 5822338749) 223.36 g LV mass index 2D (test code = 4909189564) 88.86 g/m2 LA diam systole Index (test code = 4132103719) 15.12 mm/m2 RV NASIM index (test code = 6016556674) 3.11 cm2/m2 RV BARBARA index (test code = 8195285307) 6.41 cm2/m2 AV area index (test code = 3124017082) 1.11 cm2/m2 LV stroke vol index (test code = 2378825359) 38.17 mL/m2 Ao STJ diam I - Aorta BSA (test code = 7795175444) 9.87 mm/m2 AVAI (Vmax) BSA (test code = 5026654087) 1.15 cm2/m2 Ao Asc diam I BSA (test code = 3939694985) 12.73 mm/m2 MV avg E/e' (test code = 8777542254) AV maricruz ratio (test code = 0438628096) LV mass size 1 (test code = 3856519433) 223.4 cm LV GLS (test code = 8195449324) -20.5 % Radiology Study observation (narrative) (test code = 70731-7) MONALISA (test code = MONALISA) [facility] [id number] 23:28:10* Test Item Value Reference Range Interpretation Comme [facility] Ammonia Lvl (test code = 72813-8) 21 umol/L - Lab Interpretation (test cod e = 65974-7) Normal [facility] [id number] 21:32:44* Test Item Value Reference Range Interpretation Comme nts POC Glu (test code = 7114558101) 103 mg/dL 70-99 H POC Glu Comment 1 (test code = 2834225007) Notified RN/MD POC Performing Location (adarsh t code = 5312643300) J9W Stroke Lab Interpretation (test cod e = 74921-5) [id number] 15:56:32* Test Item Value Reference Range Interpretation Comme nts TROPONIN I (test code = 3973315877) 0.012 ng/mL <=0.034 MONALISA (test code = MONALISA) Reference (Normal) Range (defined by the 99th percentile reference limit): <= 0.034 ng/mL Note: Cardiac troponin begins to rise 3-4 hours after the onset of ischemia. Repeat in 4-6 hours if the sample was drawn within 3-4 hours of the onset of the symptom and found normal. Diagnosis of myocardial injury is made with acute changes in cTn concentrations with at least one serial sample above the 99th percentile upper reference limit (URL), taken together with the patient's clinical presentation. Biotin has been reported to cause a negative bias, interpret results relative to patient's use of biotin. Lab Interpretation (test code = 03449-0) [facility] 15:45:31* Test Item Value Reference Range Interpretation Comme nts ANDREA (test code = 8864005322) 66 U/L 35-110 Lab Interpretation (test cod e = 30669-4) Normal [facility] 15:45:31* Test Item Value Reference Range Interpretation Comme nts LIPASE (test code = 6354170861) 173 U/L 0-220 Lab Interpretation (test cod e = 72893-5) Normal [facility] (41407)2023-08-11 15:45:30* Test Item Value Reference Range Interpretation Comme nts NA (test code = 0671407830) 137 mmol/L 135-145 K (test code = 1226622673) 4.9 mmol/L 3.5-5.0 Slight hemolysis CL (test code = 1844171506) 105 mmol/L 98-108 CO2 TOTAL (test code = 2946177865) 24 mmol/L 23-31 AGAP (test code = 6227253380) 8 2-16 BUN (test code = 9065616640) 20 mg/dL 7-23 Slight hemolysis GLUCOSE (test code = 5762368764) 146 mg/dL 70-110 H CREATININE (test code = 2160-0) 1.00 mg/dL 0.60-1.25 TOTAL BILI (test code = 9610406986) 1.1 mg/dL 0.1-1.1 CALCIUM (test code = 1530303899) 9.3 mg/dL 8.6-10.6 T PROTEIN (test code = 6183163455) 7.6 g/dL 6.3-8.2 ALBUMIN (test code = 5681095075) 4.7 g/dL 3.5-5.0 ALK PHOS (test code = 8176269846) 65 U/L 34-122 Slight hemolysis ALTv (test code = 1742-6) 107 U/L 5-50 H AST(SGOT) (test code = 6777023352) 58 U/L 13-40 H Slight hemolysis eGFR (test code = 31624-1) 92.3 mL/min/1.73m2 CKD-EPI eGFR (2020). Assuming creatinine has been stable day-to-day for at least three months, the eGFR indicates Category G1 (>= 90 mL/min/1.73 m2) Lab Interpretation (test code = 09621-1) Abnormal [facility] WITH [id number] 15:31:08* Test Item Value Reference Range Interpretation [...] 34.7 g/dL 31.2-35.0 RDW-SD (test code = 31016-2) 42.1 fL 38.5-51.6 RDW-CV (test code = 788-0) 12.2 % 12.1-15.4 PLT (test code = 777-3) 246 150-328 MPV (test code = 39268-6) 10.8 fL 9.8-13.0 NRBC/100 WBC (test code = 9757358534) 0.0 0.0-10.0 NRBC x10^3 (test code = 7347508266) See_Comment [Automated SceneShota ge] The system which generated this result transmitted reference range: 10*3/?L. The reference range was not used to interpret this result as normal/abnormal. GRAN MAT (NEUT) % (test code = 770-8) 52.8 % IMM GRAN % (test code = 6718357188) 0.60 % LYMPH % (test code = 736-9) 34.6 % MONO % (test code = 5905-5) 8.2 % EOS % (test code = 713-8) 3.1 % BASO % (test code = 706-2) 0.7 % GRAN MAT x10^3(ANC) (test code = 0881758262) 3.58 10*3/uL 1.99-6.95 IMM GRAN x10^3 (test code = 9806707461) 0.04 10*3/uL 0.00-0.06 LYMPH x10^3 (test code = 731-0) 2.35 10*3/uL 1.09-3.23 MONO x10^3 (test code = 742-7) 0.56 10*3/uL 0.36-1.02 EOS x10^3 (test code = 711-2) 0.21 10*3/uL 0.06-0.53 BASO x10^3 (test code = 704-7) 0.05 10*3/uL 0.01-0.09 Lab Interpretation (test code = 34513-9) [facility]normal [facility] [id number] 19:15:00* Test Item Value Reference Range Interpretation Comme nts COVID 19 INHOUSE AG (test co de = [id number]) POSITIVE NEGATIVE A REPEATED TEST --CONFLICTING RESULTS-SPOKE TO BRANDON FORRECOLLECT.-LAB-ALB Consult Notes Date/Time Note Provider Source 2024-09-27 07:52:01 [facility] Behavioral Emergency Response Team (JOS) Behavioral Emergency Response Team (JOS) Behavioral Health Clinician (BHC) followed up with nursing for non-coverage [place] for patient. MARLON GARCIA reported patient admitted last night and became agitated that Team wanted him to be NPO and he was hungry. Nursing reported patient has been appropriate this morning and declined need for JOS intervention at this time. This racebook writer encouraged MARLON GARCIA to reach out with any challenging behaviors. [facility] Notes Date/Time Note Provider Source Referral ID Status Reason Start Date Expiration Date Visits Requested Visits Authorized [id number] Pending Review Specialty Services Required 09/28/2024 03/27/2025 2 2 * Therapy Visits (Routine) - Pending Review Specialty Diagnoses / Procedures Referred By Contac t Referred To Contact Occupational Therapy Diagnoses TIA (transient ischemic attack) Acute ischemic left MCA stroke (HCC) Melissa Khoury NP [address] [place] [address] [place] [address] Phone: tel: fax: Referral ID Status Reason Start Date Expiration Date Visits Requested Visits Authorized [id number] Pending Review Specialty Services Required 09/28/2024 03/27/2025 2 2 * Consultation (Routine) - Pending Review Specialty Diagnoses / Procedures Referred By Contac t Referred To Contact Hepatology Diagnoses NAVARRETE (nonalcoholic steatohepatitis) Melissa Khoury NP [address] [place] [address] [place] [address] Phone: tel: fax: Referral ID Status Reason Start Date Expiration Date Visits Requested Visits Authorized [id number] Pending Review Specialty Services Required 09/28/2024 03/27/2025 1 1 * Consultation (Routine) - Pending Review Specialty Diagnoses / Procedures Referred By Contac t Referred To Contact Neurosurgery Diagnoses Acute ischemic left MCA stroke (HCC) Melissa Khoury NP [address] [address] [place] [address] Phone: tel: fax: Referral ID Status Reason Start Date Expiration Date Visits Requested Visits Authorized [id number] Pending Review Specialty Services Required 09/28/2024 03/27/2025 1 1 * Consultation (Routine) - Pending Review Specialty Diagnoses / Procedures Referred By Stuart baker Referred To Contact Neurology Diagnoses TIA (transient ischemic attack) Acute ischemic left MCA stroke (HCC) Melissa Khoury NP [address] [facility] [address] [place] [address] Phone: tel: fax: Referral ID Status Reason Start Date Expiration Date Visits Requested Visits Authorized [id number] Pending Review Specialty Services Required 09/28/2024 03/27/2025 1 1 [facility] 13:21:53* Auth/Cert (Routine) Specialty Diagnoses / Procedures Referred By Stuart baker Referred To Contact Diagnoses Acute ischemic left MCA stroke (HCC) Cerebrovascular Accident Procedures Pending pcs Corrie Vazquez MD [address] [facility] [address] [place] [address] Phone: tel: fax: [facility] (Carlos [address] Stroke Overflow) [address] [place] [phone] Phone: tel: Referral ID Status Reason Start Date Expiration Date Visits Re quested Visits Authorized [id number] 1 1 [facility]21[facility]20 13:21:53* Calculated C-SSRS Risk Score (Lifetime/Recent) Answer Date of Assessment Author No Risk Indicated 09/27/2024 5:01 AM CDT Lisette Segovia RN * [place] Suicide Severity Rating Scale (Screener/Recent Self-Report) Question Answer Date of Assessment Author 1. Wish to be (Past 1 Month) No 025 5:01 AM Lisette Larson, MARLON 2. Non-Specific Active Suici suyapa Thoughts (Past 1 Month) No 09/27/2024 5:01 AM ROBERTT Katherin Segovia RN 6. Suicidal Behavior (Lifetime) No 5:01 AM CDT Lisette Segovia RN [facility]94-55-66 13:21:53* Yasmin Calle RN - 09/28/2024 8:46 AM CDT 09/27/24 1330 Discharge Planning Information Source Self Permanent Residence Private residence Permanent Residence Type Single story home Household Members Spouse/significant other;Family members Support Systems Spouse/significant other;Family members Arrived From Permanent Residence Barriers to Discharge Home No In the last 12 months, was there a time when you were not able to pay the mortgage or rent on time? N In the past 12 months, how many times have you moved where you were living? 0 At any time in the past 12 months, were you homeless or living in a fpc (including now)? N In the past 12 months has the electric, gas, oil, or water company threatened to shut off services in your home? No Within the past 12 months, you worried that your food would run out before you got the money to buy more. Never true Within the past 12 months, the food you bought just didn't last and you didn't have money to get more. Never true Assistive Devices Cane;BP monitor;Glucometer Current Services (No HH services recorded.) Assistance Needed Patient requires some assistance on his ADL's prior to admission. Patient expects to be discharged to: Home Expected Discharge Disposition Home Anticipated Services at Discharge In home services Type of Home Care Services Home nursing visits In the past 12 months, has lack of transportation kept you from medical appointments or from getting medications? yes In the past 12 months, has lack of transportation kept you from meetings, work, or from getting things needed for daily living? No Does the patient need discharge transport arranged? No Discharge Planning Comments Initial discharge planning assessment done with the pt. through hospital room phone. He was calm, oriented and cooperative. Patient lives home in a single level house with his family. Denies use of [facility] resources as well as HH services. [facility] Requested for CPAP machine as he had apnea. Transportation will be provided by family. Yasmin Calle CM [id number] * Alyssa Davis, PT - 09/28/2024 8:18 AM CDT Physical Therapy Evaluation and Treatment Note Patient Name: Power Snider Today's Date: 09/28/2024 Preferred Language: Bolivian Assessment & Plan Assessment: Pt tolerated therapy session well. Pt completed bed mobility and transfers indly and progressed to Mod I gait without device x 300'. Pt demo good balance, good safety awareness and no gait deviations. Pt is performing at his baseline for mobility and is cleared for discharge home from a mobility standpoint. Pt does not demonstrate any functional mobility deficits requiring further skilled PT in the acute care setting, recommend home with family care. PT will discontinue services. Pt endorsed headache and light headedness post session- RN RADHA informed. Prognosis: Excellent Evaluation/Treatment Tolerance: Patient tolerated treatment well Medical Staff Made Aware: Yes Strengths: Ability to acquire knowledge, Attitude of self, Housing layout, Insight into deficits, Living arrangement secure, Premorbid level of function, Physical health, Support and attitude of living partners Plan: Treatment Plan/Goals Established with Patient/Caregiver: Yes Treatment/Interventions: Balance training, Bed mobility training, Functional activities, Gait training PT Plan: No skilled PT No Skilled PT: At baseline function PT Frequency: One time visit PT- Okay to Discharge from Therapy: Yes Subjective My head hurts. Current Problem: Per EMR: 49-year-old male with a past medical history of hypertension, HLD, headaches, and NAVARRETE who presented to the outside ER complaining of reportedly acute right sided weakness, numbness, and tingling. LKW unknown. CT head and CTA head and neck in OSH read as unremarkable for acute ischemic or hemorrhagic process, no LVO or MeVO. Patient transferred to for stroke work-up. On arrival NIHSS 0 and agitated. MRI brain w/wo ordered. Patient may need autoimmune encephalitis work-up. Does not appear to have a FIRE SAFETY DIRECTOR infection given headaches going on for a long time, and being afebrile and ambulatory Pain: 01/02 head Skin Screening Assessment: Vital Signs: Home Living:Type of Home: House Lives With: Spouse Home Layout: One level Home Access: Level entry Prior Level of Function:Level of [place]: Household ambulation Prior Function Comments: (ind with mobility and self care) ObjectiveGeneral Visit Information: Others Present: Precautions:UE Weight Bearing Status: FWB LE Weight Bearing Status: FWB Medical Precautions: standard, fall, Cognition:Orientation Level: Oriented X4 General Assessments:Activity Tolerance Activity Tolerance Endurance: Endurance does not limit participation in activity Sitting Balance: Moves/returns truncal midpoint more than 2 inches in all planes Sensation SensationLight Touch: RLE Intact, LLE Intact Proprioception ProprioceptionProprioception: RLE Intact, LLE Intact Coordination CoordinationMovements are Fluid and Coordinated: Yes Toe Taps: Left intact, Right intact Postural Control Postural ControlPostural Control: Within Functional Limits Balance- SittingStatic Sitting-Balance Support: Feet supported Level of Assistance: Independent Functional Assessments:Bed Mobility Bed Mobility 1: Level of Assistance 1: Independent Bed Mobility To/From: Supine to sit on EOB Transfers Transfers 1:Level of Assistance 1: Independent Transfer To/From: Bed, Ehe-rn-Utlqa/Kxpme-bw-Zql GaitGait Training Time Entry: 10 Gait Training Activity 1:Distance (enter in feet): 300' Gait Training Activity 1: Indoor surface Level of Assistance 1: Independent Extremity Assessments:Right Lower Extremity RLE Assessment RLE Assessment: Within Functional Limits Left Lower Extremity LLE AssessmentLLE Assessment: Within Functional Limits Activity Tolerance: Endurance: Endurance does not limit participation in activity Sitting Balance: Moves/returns truncal midpoint more than 2 inches in all planes CognitionOrientation Level: Oriented X4 TreatmentBed Mobility: Bed Mobility 1: Level of Assistance 1: Independent Bed Mobility To/From: Supine to sit on EOB Transfers: Transfers 1: Level of Assistance 1: Independent Transfer To/From: Bed, Nrn-za-Dboqx/Eraho-ht-Lwc Gait training: Gait Training Time Entry: 10 Gait Training Activity 1:Distance (enter in feet): 300' Gait Training Activity 1: Indoor surface Level of Assistance 1: Independent AM-PAC Basic Mobility:Turning in bed without bedrails: None Lying on back to sitting on edge of flat bed: None Bed to chair: None Standing up from chair: None Walk in room: None Climbing 3-5 stairs: None Mobility Inpatient Raw Score: 24 JH-HLM Goal: 7 Patient Education:Education Documentation Mobility, taught by Alyssa Davis PT at 09/28/2024 11:53 AM. Learner: Patient Readiness: Acceptance Method: Explanation Response: Verbalizes Understanding Positioning, taught by Alyssa Davis PT at 09/28/2024 11:53 AM.Learner: Patient Readiness: Acceptance Method: Explanation Response: Verbalizes Understanding Physical Therapy Plan of Care, taught by Alyssa Davis PT at 09/28/2024 11:53AM. Learner: Patient Readiness: Acceptance Method: Explanation Response: Verbalizes Understanding Education CommentsNo comments found. Goal: DC Treatment Note: If this is the last documented treatment, then it will signify discharge from acute care prior to discharge from the therapy service and will serve as the discharge summary. Alyssa Davis PT * Corrie Espinoza - 09/27/2024 2:51 PM CDT Spiritual Care Subjective Dairy Manufacturing Technologist attempted to visit patient twice, but medical team was at patient's bedside both times. Dairy Manufacturing Technologist(s) to follow patient as circumstances allow. * Dustin Vergara PT - 09/27/2024 1:58 PM CDT Physical Therapy Encounter Note Patient Name: Power Snider Today's Date: 09/27/2024 Missed Treatment Time and Reason TIME IN: 1358 TIME OUT: 1359 PT consult sent on 09/26 (@19:49). PT attempted this p.m. but pt was undergoing a bedside procedure (ECHO) upon PT's arrival. PT will continue to follow; will initiate eval/tx, as appropriate. Dustin Vergara PT * Gregory Park CCC-LAST MARKER - 09/27/2024 11:02 AM CDT Images from the original note were not included. [facility] LAST MARKER SPEECH-LANGUAGE COGNITIVE & CLINICAL SWALLOW EVALUATION Patient Name: Power Snider Today's Date: 09/27/2024 Time In: 0830 Time Out: 0850 Room: [place] [id number] CLINICAL SWALLOW EVALUATION SUMMARY: PPE donned. Patient seen awake/alert and sitting up in bed. Patient reported no prior hx of dysphagia. Patient vocal quality was clear. Volitional cough was adequate. OME was characterized by right-sided facial weakness (ROM). Patient reported pain of face. Patient demonstrated no symptoms of oral dysphagia or suspected pharyngeal dysphagia. PO trials of thin liquids (via straw), pureed solids, and regular solids were provided. No overt s/s of aspiration observed, but silent aspiration cannot be ruled out at bedside. If concerns for aspiration arise, please d/c diet and reconsult ST services. No further intervention related to dysphagia is clinically indicated at this time. SPEECH-LANGUAGE COGNITIVE EVALUATION SUMMARY: Patient presents with mild dysarthria characterized by minimal imprecise articulation and mild reductions in speech clarity. Intelligibility in conversational speech remains at approximately 95-100%, with the listener able to understand the majority of spoken content without significant difficulty. Speech rate, prosody, and phonatory-respiratory coordination appear functional for effective communication. Patient does not demonstrate difficulty in word retrieval or language formulation. Skilled ST intervention is not warranted. LAST MARKER will sign off at this time. RECOMMENDATIONS: Diet Recommendations: IDDSI level 7 (regular solids) w/ thin liquids Medications: As tolerated Swallow Precautions: Small bites/sips, Upright to 90 degrees Supervision Recommended: Set-up Oral care: Regular toothbrush No skilled acute ST Consider post-acute ST for patient's concerns of dysarthria PROGNOSIS: Good PLAN: Frequency: None GENERAL INFORMATION: Reason for Consult: Pt was referred for a clinical swallow evaluation and speech-language cognitive and swallowing evaluation in the setting of stroke work-up. Oxygenation: Room air Behavior:Cooperative Level of Consciousness: Awake & alert Pain: Pain Assessment: DVPRS Diet Prior to this Evaluation: Level 0- Thin Liquids and Ice chips only Preferred Language: Bolivian ORAL MOTOR EXAM: Dentition: Adequate Face: Impaired Face Symmetry: Impaired Face Sensation: Impaired Facial ROM: Reduced right Jaw: Within Functional Limits Lips: Within Functional Limits Tongue: Within Functional Limits Soft Palate: Unable to assess Larynx: Unable to assess Involuntary Muscular Movement: Absent CRANIAL NERVES FOR SPEECH, VOICE, AND SWALLOWING: Trigeminal (V) - Sensory: WFL Trigeminal (V) - Motor: WFL Facial (VII) - Sensory: WFL Facial (VII) - Motor: WFL Glossopharyngeal (IX) - Sensory/Motor: WFL Vagus (X) - Motor: WFL Hypoglossal (XII) - Motor: WFL SWALLOW ASSESSMENT: Consistencies Assessed Consistencies Assessed: Yes Swallowing Overview - Liquids 0 - Thin Liquid: WFL Swallowing Overview - Solids 4 - Pureed: WFL 7 - Regular: WFL Clinical Swallow Evaluation Patient Positioning: In bed, Upright Previous History of Dysphagia?: No Inability to Follow One Step Directions?: No Tracheostomy Present: No Inability to Manage Their Secretions?: No Incomplete Lingual ROM?: No Incomplete Facial Symmetry (Facial Droop)?: No Voice Change During Swallowing Trials?: No Abnormal/Weak Volitional Cough?: No Cough/Throat Clear w/ Trial Consistency?: No Dysphonia (Quality and/or Pitch Change)?: No Motor Speech Disorder (Dysarthria/Apraxia)?: Yes Apraxia of the Swallow Suspected?: No Delayed Swallow Suspected?: No Multiple Swallows Per Bolus Suspected?: No Tongue Pumping Suspected?: No MOTOR SPEECH: Oral Apraxia Oral Apraxia: Within Functional Limits Verbal Apraxia Verbal Apraxia: Within Functional Limits Intelligibility Intelligibility: Exceptions to WFL Spontaneously Produced Words: Impaired Spontaneously Produced Phrases: Impaired Spontaneously Produced Sentences: Impaired Conversational Speech: Impaired VOICE: Respiration Characteristics of Voice: Within Functional Limits Vocal Quality: Within Functional Limits Vocal Intensity: Within Functional Limits Following Directions Follows one step commands: Within Functional Limits Follows two step commands: Within Functional Limits Comprehension Simple Yes/No Questions: Within Functional Limits Simple Sentences: Within Functional Limits Simple Conversations: Within Functional Limits Complex Yes/No Questions: Within Functional Limits Complex Sentences: Within Functional Limits EXPRESSION: Verbal Expression Primary Mode of Expression: Verbal Confrontation Naming: Within Functional Limits COGNITIVE-LINGUISTIC FUNCTIONING: Orientation Level: Oriented X4 OUTCOME MEASURES: International Dysphagia Diet Standardization Initiative - IDDSI Solids - 7 - Regular Liquids - 0 - Thin IDDSI Level - 8 EDUCATION: Education Documentation Other Speech-Language/Pathology Education Topics, taught by Gregory Park CCC-LAST MARKER at 09/27/2024 8:30 AM. Learner: Patient Readiness: Acceptance Method: Explanation Response: Verbalizes Understanding Dietary Recommendations, taught by KARI Lou at 09/27/2024 8:30 AM. Learner: Patient Readiness: Acceptance Method: Explanation Response: Verbalizes Understanding Swallowing Strategies, taught by KARI Lou at 09/27/2024 8:30 AM. Learner: Patient Readiness: Acceptance Method: Explanation Response: Verbalizes Understanding Speech-Language/Pathology Treatment Plan, taught by KARI Lou at 09/27/2024 8:30 AM. Learner: Patient Readiness: Acceptance Method: Explanation Response: Verbalizes Understanding Results of Exam, taught by KARI Lou at 09/27/2024 8:30 AM. Learner: Patient Readiness: Acceptance Method: Explanation Response: Verbalizes Understanding Education Comments No comments found. If this is the last documented treatment, then it will signify discharge from acute care prior to discharge from the therapy service and will serve as the discharge summary. Therapy discharge recommendations are made by determining the patient's prior level of function, assessing current function level and establishing rehab potential. The overall discharge plan may be affected by input from Physicians, Care Coordination, medical condition/status, family support and insurance benefits. 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 LKW unknown. CT head and CTA head and neck in OSH read as unremarkable for acute ischemic or hemorrhagic process, no LVO or MeVO. Patient transferred to for stroke work-up. On arrival NIHSS 0 and agitated. MRI brain w/wo ordered. Patient may need autoimmune encephalitis work-up. 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 PLOF: Independent PLOF, reports living in a one story home w/ . Access to walk-in and tub/shower combo. Ambulates w/o assistive device. CLOF: Patient now presents for OT eval, functioning near/at baseline. Presented with pain d/t headache. Reported weakness in in RUE but WFL. BUE WFL ROM and strength. A&O x4. Proprioception intact. Demonstrate good dynamic standing balance and sitting balance. Pt currently performs transfers and bed mobility with SPV. Required SPV d/t IV pole. No acute OT at this time. OT WILL SIGN OFF Assessment: OT Assessment Results: Impaired ADL status, Impaired functional mobility Prognosis: Good Barriers to Discharge: Insight into deficits Evaluation/Treatment Tolerance: Patient tolerated treatment well Medical Staff Made Aware: Yes Strengths: Ability to acquire knowledge Precautions: UE Weight Bearing Status: FWB LE Weight Bearing Status: FWB Medical Precautions: standards, falls Plan: Treatment Plan/Goals Established with Patient/Caregiver: Yes Treatment Interventions: ADL retraining, Functional transfer training, Patient/family training, Neuromuscular reeducation OT Planned Treatments: Activities of Daily Living, Therapeutic activities, Therapeutic exercises, Safety education, Patient education, Balance training OT Plan: No skilled OT No Skilled OT: Independent with ADLs OT Frequency: One time visit OT - OK to Discharge: Yes Subjective Current Problem: 49-year-old male with a past medical history of hypertension, HLD, headaches, and NAVARRETE who presented to the outside ER complaining of reportedly acute right sided weakness, numbness, and tingling. Pain: 5/10 Objective The following OT treatment was done: RN cleared pt for session Pt found in semi-alex position in bed agreeable to session. PIV line, pulse ox, telemetry, BP cuff PLOF information obtained. Discussed OT POC SPV for bed mobility and transfers Set-up-Mod I for ADL's Pt remained in recliner with all lines intact, chair alarm, lap belt placed, all needs met, RN informed of status Vital Signs: Patient Vitals for the past 24 hrs: BP MAP (mmHg) Pulse Resp SpO2 09/27/24 1202 137/73 97 51 19 96 % 09/27/24 1200 137/73 97 53 20 96 % 09/27/24 1114 -- -- 50 21 96 % 09/27/24 1100 124/72 93 53 20 96 % 09/27/24 1017 -- -- 50 22 95 % 09/27/24 1004 137/72 99 52 18 96 % 09/27/24 1000 -- -- 66 -- -- 09/27/24 0935 -- -- 54 (!) 23 95 % 09/27/24 0900 143/78 (!) 104 55 20 96 % 09/27/24 0800 144/78 (!) 104 51 18 97 % 09/27/24 0700 138/72 99 51 19 96 % 09/27/24 0600 139/82 (!) 103 50 12 95 % 09/27/24 0543 -- -- 51 20 96 % 09/27/24 0502 -- -- (!) 48 17 96 % 09/27/24 0501 112/60 80 (!) 44 13 96 % 09/27/24 0500 -- -- (!) 46 15 96 % 09/27/24 0400 -- -- (!) 47 14 95 % 09/27/24 0316 130/77 98 50 16 95 % 09/27/24 0300 -- -- 57 20 96 % 09/27/24 0200 -- -- (!) 46 13 95 % 09/27/24 0100 -- -- 54 -- 98 % 09/27/24 0033 (!) 166/97 (!) 114 50 -- 95 % 09/27/24 0005 (!) 153/91 (!) 106 50 -- 97 % 09/27/24 0000 145/78 (!) 104 52 -- -- 09/26/24 2300 151/87 (!) 114 53 19 96 % 09/26/24 2200 134/60 86 53 15 97 % 09/26/24 2100 (!) 193/92 (!) 132 66 (!) 24 96 % 09/26/24 2037 149/90 (!) 114 50 20 96 % Self Care (ADL): Self Care/Home Management (ADLs) Time Entry: 12 Eating Assistance: Independent Grooming Assistance: Independent Grooming Deficit: Wash/dry hands, Wash/dry face, Teeth care Assistive Devices And Adaptive Equipments: No Device Bathing Assistance: Setup/clean-up assistance UE Dressing Activity Component(s): Gown UE Dressing Assistance: Setup/clean-up assistance LE Dressing Activity Component(s): Socks LE Dressing Assistance: Setup/clean-up assistance LE Dressing Deficit: Don/doff R sock, Don/doff L sock Toileting Assistance: Setup/clean-up assistance Toileting Deficit: Setup ADL Comments: Mod I for eating, and grooming. Set-up for bathing, UBD, LBD, toileting and bathing. Mobility/Transfers: Bed Mobility Bed Mobility Bed Mobility: Yes Bed Mobility 1 Level of Assistance 1: Setup/clean up assistance Bed Mobility Comments 1: Set-up for line mgmt of IV pole Bed Mobility To/From: Supine to sit on EOB Assistive Devices And Adaptive Equipments: No device Transfer Transfers Transfer: Yes Transfer 1 Technique 1: Via walking Level of Assistance 1: Setup/clean-up assistance Trials/Comments 1: Set-up for line mgmt Transfer To/From: [id number], Chair Assistive Devices And Adaptive Equipments: No device Extremity Assessments: Right Upper Extremity RUE Assessment RUE Assessment: Within Functional Limits Left Upper Extremity LUE Assessment LUE Assessment: Within Functional Limits Treatment Self-Care: Self Care/Home Management (ADLs) Time Entry: 12 Eating Assistance: Independent Grooming Assistance: Independent Grooming Deficit: Wash/dry hands, Wash/dry face, Teeth care Assistive Devices And Adaptive Equipments: No Device Bathing Assistance: Setup/clean-up assistance UE Dressing Activity Component(s): Gown UE Dressing Assistance: Setup/clean-up assistance LE Dressing Activity Component(s): Socks LE Dressing Assistance: Setup/clean-up assistance LE Dressing Deficit: Don/doff R sock, Don/doff L sock Toileting Assistance: Setup/clean-up assistance Toileting Deficit: Setup ADL Comments: Mod I for eating, and grooming. Set-up for bathing, UBD, LBD, toileting and bathing. Bed Mobility: Bed Mobility Bed Mobility: Yes Bed Mobility 1 Level of Assistance 1: Setup/clean up assistance Bed Mobility Comments 1: Set-up for line mgmt of IV pole Bed Mobility To/From: Supine to sit on EOB Assistive Devices And Adaptive Equipments: No device Transfers: Transfers Transfer: Yes Transfer 1 Technique 1: Via walking Level of Assistance 1: Setup/clean-up assistance Trials/Comments 1: Set-up for line mgmt Transfer To/From: [id number]/[id number], Chair Assistive Devices And Adaptive Equipments: No device AM-PAC Daily Activity: Putting on and taking off regular lower body clothing: A Little Bathing (including washing, rinsing, drying): A Little Toileting, which includes using toilet, bedpan or urinal: A Little Putting on and taking off regular upper body clothing: None Taking care of personal grooming such as brushing teeth: None Eating Meals: None AM-PAC Daily Activity Raw Score: 21 Patient Education:Education Documentation No documentation found. Education Comments No comments found. Treatment Note: If this is the last documented treatment, then it will signify discharge from acute care prior to discharge from the therapy service and will serve as the discharge summary. Yvonne Cline OT [facility] [id number] 13:21:53Scheduled Orders Scheduled Referrals Name Type Priority Associated Diagnoses Order Schedule Ambulatory referral to Neurology Outpatient Referral Routine TIA (transient ischemic attack) Acute ischemic left MCA stroke (HCC) Expected: 10/29/2024 (Approximate), Expires: 09/28/2025 Ambulatory referral to Neurosurgery Outpatient Referral Routine Acute ischemic left MCA stroke (HCC) Expected: 10/29/2024 (Approximate), Expires: 09/28/2025 Ambulatory referral to Hepatology Outpatient Referral Routine NAVARRETE (nonalcoholic steatohepatitis) Expected: 10/29/2024 (Approximate), Expires: 09/28/2025 Outpatient Referral to Occupational Therapy Outpatient Referral Routine TIA (transient ischemic attack) Acute ischemic left MCA stroke (HCC) Expected: 09/28/2024 (Approximate), Expires: 09/28/2025 Outpatient Referral to Physical Therapy Outpatient Referral Routine TIA (transient ischemic attack) Acute ischemic left MCA stroke (HCC) Expected: 09/28/2024 (Approximate), Expires: 09/28/2025 Health Maintenance Due Date Last Done Comments CT Colonography 1974 Colonoscopy 1974 Colorectal Cancer Screening 1974 FIT-DNA 1974 FIT 1974 FOBT 1974 Sigmoidoscopy 1974 Annual Physical 1977 DTaP/Tdap/Td Vaccines (1 - Tdap) 1993 Hepatitis A Vaccines (1 of 2 - Risk 2-dose series) 1993 Hepatitis B Vaccines (1 of 3 - 19+ 3-dose series) 1993 Pneumococcal Vaccine: 50+ Ye ars (1 of 1 - PCV) 2024 Zoster Vaccines (1 of 2) 2024 Influenza Vaccine (Season Ended) 2025 Lipid Panel 09/26/2029 09/26/2024 Respiratory Syncytial Virus (RSV) Adult Series (1 - 1-dose 75+ series) 2049 HIB Vaccines Aged Out No longer eligi ble based on patient's age to complete this topic HPV Vaccines Aged Out No longer eligi ble based on patient's age to complete this topic IPV Vaccines Aged Out No longer eligi ble based on patient's age to complete this topic Meningococcal Vaccine Aged Out No obed bernice eligible based on patient's age to complete this topic Pneumococcal Vaccine: Pediat rics (0 to 5 Years) and At-Risk Patients (6 to 64 Years) Aged Out No longer eligible b ased on patient's age to complete this topic Rotavirus Vaccines Aged Out No longer eligible based on patient's age to complete this topic [id number] 13:21:53 Diagnosis TIA (transient ischemic attack) - Primary Unspecified transient cerebral ischemia TIA (transient ischemic attack) Unspecified transient cerebral ischemia Acute ischemic left MCA stroke (HCC) Unspecified cerebral artery occlusion with cerebral infarction NAVARRETE (nonalcoholic steatohepatitis) Other chronic nonalcoholic liver disease Acute ischemic left MCA stroke (HCC) Unspecified cerebral artery occlusion with cerebral infarction Complicated migraine Migraine, unspecified, without mention of intractable migraine without mention of status migrainosus HTN (hypertension) Unspecified essential hypertension NAVARRETE (nonalcoholic steatohepatitis) Other chronic nonalcoholic liver disease [facility] [id number] 13:21:53 [place] [id number] 12:48:32 The patient is Moderately Stable - Low risk of patient condition declining or worsening The patient's goals for the shift include pain control. The clinical goals for the shift include stable neurological and vital signs; free from falls. NursingUnited [facility] Medical [id number] 12:02:33 Images from the original note were not included. [id number] Aspirin Brand Name(s): Acuprin?, Anacin? Aspirin Regimen, Ascriptin?, Aspergum?, Aspidrox?, Aspir-Mox?, Aspirtab?, Aspir-joseph?, Robson? Aspirin, Bufferin?, Buffex?, Easprin?, Ecotrin?, Empirin?, Entaprin?, Entercote?, Fasprin?, Genacote?, Gennin-FC?, Genprin?, Halfprin?, Magnaprin?, Miniprin?, Minitabs?, Ridiprin?, Sloprin?, Uni-Buff?, Uni-Tren?, [place]ag?, Zorprin?, [place]? (as a combination product containing Aspirin, Citric Acid, Sodium Bicarbonate), [place]? Extra Strength (as a combination product containing Aspirin, Citric Acid, Sodium Bicarbonate), [place]? Morning Relief (as a combination product containing Aspirin, Caffeine), [place]? Plus Flu (as a combination product containing Aspirin, Chlorpheniramine, Dextromethorphan), [place]? PM (as a combination product containing Aspirin, Diphenhydramine), Alor? (as a combination product containing Aspirin, Hydrocodone), Anacin? (as a combination product containing Aspirin, Caffeine), Anacin? Advanced Headache Formula (as a combination product containing Acetaminophen, Aspirin, Caffeine), Aspircaf? (as a combination product containing Aspirin, Caffeine), Axotal? (as a combination product containing Aspirin, Butalbital), Azdone? (as a combination product containing Aspirin, Hydrocodone), Robson? Aspirin Plus Calcium (as a combination product containing Aspirin, Calcium Carbonate), Robson? Aspirin PM (as a combination product containing Aspirin, Diphenhydramine), Robson? Back and Body Pain (as a combination product containing Aspirin, Caffeine), BC Headache (as a combination product containing Aspirin, Caffeine, Salicylamide), BC Powder (as a combination product containing Aspirin, Caffeine, Salicylamide), Damason-P? (as a combination product containing Aspirin, Hydrocodone), Emagrin? (as a combination product containing Aspirin, Caffeine, Salicylamide), Endodan? (as a combination product containing Aspirin, Oxycodone), Equagesic? (as a combination product containing Aspirin, Meprobamate), Excedrin? (as a combination product containing Acetaminophen, Aspirin, Caffeine), Excedrin? Back & Body (as a combination product containing Acetaminophen, Aspirin), Goody's? Body Pain (as a combination product containing Acetaminophen, Aspirin), Levacet? (as a combination product containing Acetaminophen, Aspirin, Caffeine, Salicylamide), Lortab? ASA (as a combination product containing Aspirin, Hydrocodone), Micrainin? (as a combination product containing Aspirin, Meprobamate), Momentum? (as a combination product containing Aspirin, Phenyltoloxamine), Norgesic? (as a combination product containing Aspirin, Caffeine, Orphenadrine), Orphengesic? (as a combination product containing Aspirin, Caffeine, Orphenadrine), Panasal? (as a combination product containing Aspirin, Hydrocodone), Percodan? (as a combination product containing Aspirin, Oxycodone), Robaxisal? (as a combination product containing Aspirin, Methocarbamol), Roxiprin? (as a combination product containing Aspirin, Oxycodone), Saleto? (as a combination product containing Acetaminophen, Aspirin, Caffeine, Salicylamide), Soma? Compound (as a combination product containing Aspirin, Carisoprodol), Soma? Compound with Codeine (as a combination product containing Aspirin, Carisoprodol, Codeine), Supac? (as a combination product containing Acetaminophen, Aspirin, Caffeine), Synalgos-DC? (as a combination product containing Aspirin, Caffeine, Dihydrocodeine), Talwin? Compound (as a combination product containing Aspirin, Pentazocine), Vanquish? (as a combination product containing Acetaminophen, Aspirin, Caffeine); also available generically Acetylsalicylic acid, ASA WHY is this medicine prescribed? Prescription aspirin is used to relieve the symptoms of rheumatoid arthritis (arthritis caused by swelling of the lining of the joints), osteoarthritis (arthritis caused by breakdown of the lining of the joints), systemic lupus erythematosus (condition in which the immune system attacks the joints and organs and causes pain and swelling) and certain other rheumatologic conditions (conditions in which the immune system attacks parts of the body). Nonprescription aspirin is used to reduce fever and to relieve mild to moderate pain from headaches, menstrual periods, arthritis, toothaches, and muscle aches. Nonprescription aspirin is also used to prevent heart attacks in people who have had a heart attack in the past or who have angina (chest pain that occurs when the heart does not get enough oxygen). Nonprescription aspirin is also used to reduce the risk of in people who are experiencing or who have recently experienced a heart attack. Nonprescription aspirin is also used to prevent ischemic strokes (strokes that occur when a blood clot blocks the flow of blood to the brain) or mini-strokes (strokes that occur when the flow of blood to the brain is blocked for a short time) in people who have had this type of stroke or mini-stroke in the past. Aspirin will not prevent hemorrhagic strokes (strokes caused by bleeding in the brain). Aspirin is in a group of medications called salicylates. It works by stopping the production of certain natural substances that cause fever, pain, swelling, and blood clots. Aspirin is also available in combination with other medications such as antacids, pain relievers, and cough and cold medications. This monograph only includes information about the use of aspirin alone. If you are taking a combination product, read the information on the package or prescription label or ask your doctor or pharmacist for more information. HOW should this medicine be used? Prescription aspirin comes as an extended-release (long-acting) tablet. Nonprescription aspirin comes as a regular tablet, a delayed-release (releases the medication in the intestine to prevent damage to the stomach) tablet, a chewable tablet, powder, and a gum to take by mouth. Prescription aspirin is usually taken two or more times a day. Nonprescription aspirin is usually taken once a day to lower the risk of a heart attack or stroke. Nonprescription aspirin is usually taken every 4 to 6 hours as needed to treat fever or pain. Follow the directions on the package or prescription label carefully, and ask your doctor or pharmacist to explain any part you do not understand. Take aspirin exactly as directed. Do not take more or less of it or take it more often than directed by the package label or prescribed by your doctor. Swallow the extended-release tablets whole with a full glass of water. Do not break, crush, or chew them. Swallow the delayed-release tablets with a full glass of water. Chewable aspirin tablets may be chewed, crushed, or swallowed whole. Drink a full glass of water, immediately after taking these tablets. Ask a doctor before you give aspirin to your child or teenager. Aspirin may cause Helen's syndrome (a serious condition in which fat builds up on the brain, liver, and other body organs) in children and teenagers, especially if they have a virus such as chicken pox or the flu. If you have had oral surgery or surgery to remove your tonsils in the last 7 days, talk to your doctor about which types of aspirin are safe for you. Delayed-release tablets begin to work some time after they are taken. Do not take delayed-release tablets for fever or pain that must be relieved quickly. Stop taking aspirin and call your doctor if your fever lasts longer than 3 days, if your pain lasts longer than 10 days, or if the part of your body that was painful becomes red or swollen. You may have a condition that must be treated by a doctor. Are there OTHER USES for this medicine? Aspirin is also sometimes used to treat rheumatic fever (a serious condition that may develop after a strep throat infection and may cause swelling of the heart valves) and Kawasaki disease (an illness that may cause heart problems in children). Aspirin is also sometimes used to lower the risk of blood clots in patients who have artificial heart valves or certain other heart conditions and to prevent certain complications of . What SPECIAL PRECAUTIONS should I follow? Before taking aspirin, ? tell your doctor and pharmacist if you are allergic to aspirin, other medications for pain or fever, tartrazine dye, or any other medications. ? tell your doctor and pharmacist what prescription and nonprescription medications, vitamins, nutritional supplements, and herbal products you are taking or plan to take. Be sure to mention any of the following: acetazolamide (Diamox); angiotensin-converting enzyme (BIJU) inhibitors such as benazepril (Lotensin), captopril (Capoten), enalapril (Vasotec), fosinopril (Monopril), lisinopril (Prinivil, Zestril), moexipril (Univasc), perindopril, (Aceon), quinapril (Accupril), ramipril (Altace), and trandolapril (Mavik); anticoagulants ('blood thinners') such as warfarin (Coumadin) and heparin; beta blockers such as atenolol (Tenormin), labetalol (Normodyne), metoprolol (Lopressor, Toprol XL), nadolol (Corgard), and propranolol (Inderal); diuretics ('water pills'); medications for diabetes or arthritis; medications for gout such as probenecid and sulfinpyrazone (Anturane); methotrexate (Trexall); other nonsteroidal anti-inflammatory drugs (NSAIDs) such as naproxen (Aleve, Naprosyn); phenytoin (Dilantin); and valproic acid (Depakene, Depakote). Your doctor may need to change the doses of your medications or monitor you more carefully for side effects. ? if you are taking aspirin on a regular basis to prevent heart attack or stroke, do not take ibuprofen (Advil, Motrin) to treat pain or fever without talking to your doctor. Your doctor will probably tell you to allow some time to pass between taking your daily dose of aspirin and taking a dose of ibuprofen. ? tell your doctor if you have or have ever had asthma, frequent stuffed or runny nose, or nasal polyps (growths on the linings of the nose). If you have these conditions, there is a risk that you will have an allergic reaction to aspirin. Your doctor may tell you that you should not take aspirin. ? tell your doctor if you often have heartburn, upset stomach, or stomach pain and if you have or have ever had ulcers, anemia, bleeding problems such as hemophilia, or kidney or liver disease. ? tell your doctor if you are , you plan to become , or if you are breast-feeding. Low dose aspirin 81-mg may be taken during , but aspirin doses greater that 81 mg may harm the fetus and cause problems with delivery if it is taken around 20 weeks or later during . Do not take aspirin doses greater that 81 mg (e.g., 325 mg) around or after 20 weeks of , unless told to do so by your doctor. If you become while taking aspirin or aspirin containing medications, call your doctor. ? if you are having surgery, including dental surgery, tell the doctor or dentist that you are taking aspirin. ? if you drink three or more alcoholic drinks every day, ask your doctor if you should take aspirin or other medications for pain and fever. What SPECIAL DIETARY instructions should I follow? Unless your doctor tells you otherwise, continue your normal diet. What should I do IF I FORGET to take a dose? If your doctor has told you to take aspirin on a regular basis and you miss a dose, take the missed dose as soon as you remember it. However, if it is almost time for the next dose, skip the missed dose and continue your regular dosing schedule. Do not take a double dose to make up for a missed one. What SIDE EFFECTS can this medicine cause? Some side effects can be serious. If you experience any of the following symptoms, call your doctor immediately: ? hives ? rash ? swelling of the eyes, face, lips, tongue, or throat ? wheezing or difficulty breathing ? hoarseness ? fast heartbeat ? fast breathing ? cold, clammy skin ? ringing in the ears ? loss of hearing ? bloody vomit ? vomit that looks like coffee grounds ? bright red blood in stools ? black or tarry stools Aspirin may cause other side effects. Call your doctor if you experience any unusual problems while you are taking this medication. If you experience a serious side effect, you or your doctor may send a report to the Food and Drug Administration's (FDA) MedWatch Adverse Event Reporting program online (https://www.fda.gov/Safety/MedWatch) or by phone ( ). What should I know about STORAGE and DISPOSAL of this medication? Keep this medication in the container it came in, tightly closed, and out of reach of children. Store it at room temperature and away from excess heat and moisture (not in the bathroom). Dispose of any tablets that have a strong vinegar smell. It is important to keep all medication out of sight and reach of children as many containers (such as weekly pill minders and those for eye drops, creams, patches, and inhalers) are not child-resistant and young children can open them easily. To protect young children from poisoning, always lock safety caps and immediately place the medication in a safe location - one that is up and away and out of their sight and reach. https://www.[employer].org Unneeded medications should be disposed of in special ways to ensure that pets, children, and other people cannot consume them. However, you should not flush this medication down the toilet. Instead, the best way to dispose of your medication is through a medicine take-back program. Talk to your pharmacist or contact your local garbage/recycling department to learn about take-back programs in your community. See the FDA's Safe Disposal of Medicines website (https://goo.gl/c4Rm4p) for more information if you do not have access to a take-back program. What should I do in case of OVERDOSE? In case of overdose, call the poison control helpline at . Information is also available online at https://www.poisonhelp.org/help. If the victim has collapsed, had a seizure, has trouble breathing, or can't be awakened, immediately call emergency services at 548. Symptoms of overdose may include: ? burning pain in the throat or stomach ? vomiting ? decreased urination ? fever ? restlessness ? irritability ? talking a lot and saying things that do not make sense ? fear or nervousness ? dizziness ? double vision ? uncontrollable shaking of a part of the body ? confusion ? abnormally excited mood ? hallucination (seeing things or hearing voices that are not there) ? seizures ? drowsiness ? loss of consciousness for a period of time What OTHER INFORMATION should I know? Keep all appointments with your doctor. If you are taking prescription aspirin, do not let anyone else take your medication. Ask your pharmacist any questions you have about refilling your prescription. It is important for you to keep a written list of all of the prescription and nonprescription ([id number]) medicines you are taking, as well as any products such as vitamins, minerals, or other dietary supplements. You should bring this list with you each time you visit a doctor or if you are admitted to a hospital. It is also important information to carry with you in case of emergencies. This report on medications is for your information only, and is not considered individual patient advice. Because of the changing nature of drug information, please consult your physician or pharmacist about specific clinical use. The [employer] represents that the information provided hereunder was formulated with a reasonable standard of care, and in conformity with professional standards in the field. The [employer] makes no representations or warranties, express or implied, including, but not limited to, any implied warranty of merchantability and/or fitness for a particular purpose, with respect to such information and specifically disclaims all such warranties. Users are advised that decisions regarding drug therapy are complex medical decisions requiring the independent, informed decision of an appropriate health campground caretaker, and the information is provided for informational purposes only. The entire monograph for a drug should be reviewed for a thorough understanding of the drug's actions, uses and side effects. The [employer] does not endorse or recommend the use of any drug. The information is not a substitute for medical care. AHFS? Patient Medication Information?. ? Copyright, 2023. The [employer]?, [address], [address], [place], [place]. All Rights Reserved. Duplication for commercial use must be authorized by [facility]. Selected Revisions: October 07, 2020. AHFS? Patient Medication Information?. ? Copyright, 2024 I [facility] [id number] 12:02:23 Images from the original note were not included. [id number] Stroke (Completed) You have had a stroke, or cerebrovascular accident (CVA). This is caused by a loss of blood flow to part of your brain. Ischemic type strokes can occur when a blood clot forms inside the carotid artery (main artery from the heart to the brain). Or a clot can form inside the heart and travel to the brain to lodge in a blood vessel and block blood flow. Another common ischemic cause of stroke is a gradual narrowing of the arteries in the brain because of buildup of fatty deposits (plaque). A clot can form at such a narrowing. Less commonly, infection or cancer can cause ischemic stroke. An autoimmune disease can cause inflammation of the blood vessels and also lead to stroke. A second type of stroke is hemorrhagic stroke. It occurs when a blood vessel ruptures and causes bleeding inside the brain . Symptoms Blocked blood flow in different areas of the brain can cause different symptoms. If you have had a stroke before, a new one may be different. A memory aid for the basic signs of a stroke is B.E.F.A.S.T. B.E. F.A.S.T. ? B is for balance. Sudden loss of balance or coordination. ? E is for eyes. Vision changes in one or both eyes. ? F is for face drooping. Drooping or numbness on one side of the face. This may be more noticeable when you ask the affected person to smile. ? A is for arm weakness or numbness. The affected person may have trouble using or lifting one side. ? S is for speech difficulty. Speech may be slurred or hard to understand. The affected person may also use the wrong words. ? T is for time to call 911. Time is critical in treating a stroke. Call 911 as soon as you suspect a stroke has happened?even a small one. The sooner treatment is started the better, even if the symptoms go away. Other common symptoms of a stroke include: ? Having trouble getting the right words to come out ? Weakness in one leg ? Numbness on one side ? Trouble walking ? Trouble with coordination ? Trouble with vision ? Severe headache ? Confusion ? Dizziness Treatment After you have had a stroke, you are at risk of having another. Be sure to follow up with your healthcare provider for more assessment and treatment. If problems are found, your healthcare provider will advise treatment with medicines, procedures, or both. To reduce your chance of having another stroke, you may be prescribed medicines. These include medicines to prevent blood clots, such as antiplatelet or anticoagulant medicines. Certain heart conditions can be treated with surgery to reduce the risk for more strokes. Surgery to open up a blockage in the carotid artery (endarterectomy) may also reduce the risk for future strokes. You will likely need physical therapy, including speech and occupational therapy if appropriate. This can be done at home, at an outpatient office, or in a rehabilitation hospital. Which location depends on your needs and abilities. Home care ? Rest at home and don't exert yourself for the next few days. ? If your healthcare provider has prescribed medicines, take them as directed. Follow-up care Follow up with your healthcare provider, or as advised. Additional tests may be needed. If you had an X-ray, CT scan, MRI, or ECG (electrocardiogram), it will be reviewed by a specialist. You will be notified of any new findings that will affect your care. Call 911 Call 911 if any of these occur: ? Any of your stroke symptoms worsen ? Sudden new problems with speech, confusion, vision, walking, coordination, facial droop, or weakness or numbness on one side of your body ? Severe headache, fainting spell, dizziness, or seizure ? Chest pain or shortness of breath Remember B.E. F.A.S.T. (described above). If you notice warning signs and symptoms of stroke, Call [address] yourself or the victim. The ambulance can alert the hospital and start treatment. Last Reviewed Date: 2022 00:00:00 ? [id number] [employer]. All rights reserved. This information is not intended as a substitute for professional medical care. Always follow your healthcare professional's instructions. [id number] 12:02:10 Images from the original note were not included. [id number] Transient Ischemic Attack (TIA) Your symptoms were caused by a TIA, or mini-stroke. Even though your symptoms have gone away, this condition is as serious as a full stroke. It is a warning signal that means once you have had a TIA you are at a higher risk of having a full stroke. The risk of a stroke after a TIA is highest within the first 24 to 48 hours. A TIA is caused when something decreases or blocks blood flow to a part of your brain. A TIA often happens when a blood clot travels to a blood vessel in the brain. The clot reduces or blocks blood flow causing the symptoms you have experienced. After a short while, the clot dissolves. Blood flows again, and the symptoms go away. People with hardening of the arteries (atherosclerosis) or an irregular heartbeat called atrial fibrillation are at higher risk for a TIA. A TIA causes symptoms similar to a stroke, but they last less than 24 hours. A full stroke causes symptoms that last more than 24 hours and may be permanent. But even if your symptoms only lasted a short time, the TIA may have damaged your brain tissue. You will need tests to look at the blood flow to your brain. The tests can also rule out other causes of your symptoms. The tests may include an ultrasound of the arteries in your neck and an evaluation of your heart. They may also include a CT scan of your brain, an MRI scan of your brain, or both. If your healthcare provider finds problems, they will recommend treatment with medicines, procedures, or both. Your provider may prescribe medicines to reduce your chance of having another TIA and stroke. These may include medicines that prevent blood clots, such as antiplatelet medicines and blood thinners (anticoagulants). Your healthcare provider may recommend other treatments. This may include a procedure to open up a blocked artery in your neck or a procedure to prevent blood clots from forming in the heart. Home care These guidelines will help you take care of yourself at home: ? Take any medicines your healthcare provider has prescribed as directed. These may include antiplatelet medicines or medicines for other conditions, such as high blood pressure or high cholesterol. ? A TIA is a serious event that puts you at risk of having a full stroke. Because of this, it's important to take steps to help prevent a stroke from happening. Your provider will look at all of your risk factors when deciding on what other treatment you may need. Ways to reduce your risk for stroke High blood pressure, diabetes, high cholesterol, heavy drinking, and smoking are risk factors for stroke and heart disease. You can control these by taking medicines and making diet and lifestyle changes. One way to help prevent a stroke is to take aspirin or a similar medicine every day. However, you should not take daily aspirin unless your healthcare provider tells you to. Your provider will work with you to make lifestyle changes to help prevent a stroke. Diet Your healthcare provider will give you information about changes you may need to make to your diet. You may need to see a registered dietitian for help with diet changes. Changes may include: ? Eating less fat and cholesterol ? Eating less salt (sodium). This is especially important if you have high blood pressure. ? Eating more fresh fruits and vegetables ? Eating lean proteins, such as fish, poultry, beans, and peas ? Eating less red meat and processed meats ? Using low-fat dairy products ? Using vegetable and nut oils in limited amounts ? Limiting how many sweets and processed foods, such as chips, cookies, and baked goods you eat ? Limiting how much alcohol you drink Physical activity Your healthcare provider may recommend that you get more exercise if you have not been as active as possible. They may suggest that you get 40 minutes of moderate to vigorous physical activity each day. You should do this at least 3 to 4 days a week. A few examples of moderate to vigorous exercise are: ? Walking at a brisk pace, about 3 to 4 miles per hour ? Jogging or running ? Swimming or water aerobics ? Hiking ? Dancing ? Martial arts ? Tennis ? Riding a bike Other ways to reduce your risk ? Weight management. If you are overweight or obese, your healthcare provider will work with you to lose weight and lower your body mass index (BMI) to a normal or near-normal level. Making diet changes and increasing physical activity can help. ? Smoking. If you smoke, break the habit. Enroll in a stop smoking program to improve your chances of success. ? Stress. Learn how to manage your stress. If necessary, work with a mental health professional who can help you develop coping strategies that can help you deal with stress at home and at work. Follow-up care Call your healthcare provider for an appointment in the next few days for another evaluation, or as advised. This is to make a plan for preventing another TIA or stroke. You may need to see a neurologist to follow up on your TIA. A neurologist is a healthcare provider who specializes in treating brain and nervous system problems. You may need other tests or procedures. If you had an X-ray, CT scan, MRI scan, or ECG (electrocardiogram), a specialist will review it. You?ll be told of any new findings that will affect your care. Call 911 Call 911 if any of these occur: ? Any of your TIA symptoms return ? New problems with speech, vision, walking, or weakness or numbness of the face or on 1 side of the body ? Severe headache, fainting spell, dizziness, or seizure Use B.E. F.A.S.T. to help you remember the symptoms of a stroke: ? B for balance. Sudden loss of balance or coordination. ? E for eyes. Vision changes in 1 or both eyes. ? F for face drooping. Drooping or numbness on 1 side of face. This may be more noticeable when you ask the affected person to smile. ? A for arm weakness or numbness. The affected person may have trouble using or lifting 1 side. ? S for speech difficulty. Speech may be slurred or hard to understand. The affected person may also use the wrong words. ? T for time to call 911. Time is critical in treating a stroke. Call 911 as soon as you suspect a stroke has happened?even a small one. The sooner treatment is started the better, even if the symptoms go away. Last Reviewed Date: 2024 00:00:00 ? [id number] [employer]. All rights reserved. This information is not intended as a substitute for professional medical care. Always follow your healthcare professional's instructions. [facility]2025-05-06 09:05:36 Final Recommendation(s): Secondary Review Review Type: Concurrent Initial Recommendation: Observation (Patient admitted with concerns for strokelike symptoms, transferred in for higher level of care, MRI brain unremarkable. Otherwise normal labs noted and normal vital signs noted. Observation seems more reasonable. SA) Concurrent Recommendation: Observation Secondary Review Status: Submitted for review Rationale for Recommendation(s): 09/26 IP 09/27 obs 49 yo w/ right sided weakness, numbness, and tingling. Exam normal with NIHSS 0 on admission. TIA vs complex migraine. Did have some agitation thought to be related to medication Some bradycardia noted but no intervention, not mentioned in notes. No note from today yet. Agree with obs for now. T Internal Medicine PhysicianUnited [facility] Medical [id number] 20:34:32 Refused tylenol T NursingUnited Memorial Medical [id number] 20:08:52 The patient is Moderately Unstable - Medium risk of patient condition declining or worsening The patient's goals for the shift include pain control The clinical goals for the shift include safety and pain under control [facility]2025-05-05 12:54:07 The patient is Moderately Stable - Low risk of patient condition declining or worsening The patient's goals for the shift include adequate pain management. The clinical goals for the shift include stable neurological and vital signs. T [facility] [id number] 12:25:03 Final Recommendation(s): Secondary Review Review Type: Initial Initial Recommendation: Observation (Patient admitted with concerns for strokelike symptoms, transferred in for higher level of care, MRI brain unremarkable. Otherwise normal labs noted and normal vital signs noted. Observation seems more reasonable. 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 Recommendation: Observation Status Team Notification: Status Change Recommended, Message Sent Rationale: Patient transferred in for higher level of care with concerns for strokelike symptoms with essentially negative workup in the hospital including negative MRI of the brain. Observation seems to be more reasonable. Anoop Lang MD [place] FACEP Physician Advisor T [facility] [id number] 03:04:36 Problem: Neurological Deficit Goal: Neurological status is stable or improving Outcome: Progressing Goal: Maintain vital signs within ordered limits Outcome: Progressing Goal: Oxygenation goal greater than 94% Outcome: Progressing Problem: Pain - Adult Goal: Verbalizes/displays adequate comfort level or baseline comfort level Outcome: Progressing Problem: Safety - Adult Goal: Free from fall injury Outcome: Progressing Problem: Discharge Planning Goal: Discharge to home or other facility with appropriate resources Outcome: Progressing Problem: Chronic Conditions and Co-morbidities Goal: Patient's chronic conditions and co-morbidity symptoms are monitored and maintained or improved Outcome: Progressing The patient is Moderately Stable - Low risk of patient condition declining or worsening The patient's goals for the shift include rest The clinical goals for the shift include stable neuro/vitals 2029 - pt noted to be agitated while Dr. Montilla was doing admission assessment and interview 2114 - called kennedy montez as pt's agitation is escalating- verbally abusive and will not listen to anything staff tells him ALEM Quintero made aware who came when security arrived to talk to pt, Dr Montilla made aware as well As pt has gotten more agitated when told abt not being able to eat yet until MRI is done Pt cooperated after 2317- messaged Dr. Montilla abt pt pain medication request 557 called lab to ff up on bmp result T [facility] [id number] 01:10:00 MRI completed. VS per flowsheet. Report/handoff given to Lisette MASON. Pt transferred back to [facility] bed via hospital bed with monitor in place and RN bedside. T [facility] [id number] 00:00:00 Pt recevied in MRI via hospital bed with monitor in place and RN bedside. VSS. Report/handoff from Lisette MASON. Pt educated/instructed re exam. Transferred to scanner table and positioned for comfort. T [facility] [id number] 22:08:59Scheduled Orders Health Maintenance Due Date Last Done Comments CT Colonography 1974 Colonoscopy 1975 Colorectal Cancer Screening 1975 FIT-DNA 1975 FIT 1975 FOBT 1975 Lipid Panel 1975 Sigmoidoscopy 1974 Annual Physical 1977 DTaP/Tdap/Td Vaccines (1 - Tdap) 1993 Hepatitis B Vaccines (1 of 3 - 19+ 3-dose series) 1993 Pneumococcal Vaccine: 50+ Ye ars (1 of 1 - PCV) 2024 Zoster Vaccines (1 of 2) 2024 Influenza Vaccine (Season Ended) 2025 Respiratory Syncytial Virus (RSV) Adult Series (1 - 1-dose 75+ series) 2049 HIB Vaccines Aged Out No longer eligi ble based on patient's age to complete this topic HPV Vaccines Aged Out No longer eligi ble based on patient's age to complete this topic Hepatitis A Vaccines Aged Out No long er eligible based on patient's age to complete this topic IPV Vaccines Aged Out No longer eligi ble based on patient's age to complete this topic Meningococcal Vaccine Aged Out No obed bernice eligible based on patient's age to complete this topic Pneumococcal Vaccine: Pediat rics (0 to 5 Years) and At-Risk Patients (6 to 64 Years) Aged Out No longer eligible b ased on patient's age to complete this topic Rotavirus Vaccines Aged Out No longer eligible based on patient's age to complete this topic [facility] [id number] 11:28:00 Pt's was in recovery from surgery and ready to be let go home. Pt signed out AMA. Form signed provider informed. Corine Scott RNUTHolzer Medical Center – [id number] 09:31:13 Power Snider is a 48 year [...] blanket. Will continue with plan of care. [facility] [id number] 09:20:45 Power Snider is a 48 year [...] [facility] [place]. I"m not even trying to blame it on the Covid, it messed a lot of people up. But when I had it and my mom , my stomach just hasn't been the same since 2020.". Pt is aox4 with gcs 15 skin warm and dry resp even and unlabored. NAD Noted. Pt to room for eval. 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 at 1954 RPT #:[id number] END OF [id number] 17:42:00 [facility]) EMERGENCY PROVIDER REPORT REPORT#:[id number] REPORT STATUS: Signed DATE:08/23/20 TIME: 1741 PATIENT: POWER SNIDER UNIT #: [id number] ROOM/BED: AGE: 45 SEX: M PCP PHYS: No Primary or Family Physician SERVICE AUTHOR: Bart Oh NP * ALL edits or amendments must be made on the electronic/computer document * Bart Oh 08/23/201741: HPI-Eye Problem Free Text HPI Notes [...] Result Date Time Pulse Ox 97 08/23 172 B/P 160/113 08/23 172 B/P Mean 128 08/23 172 O2 Delivery Room air 08/23 172 Temp 36.7 08/23 1725 Pulse 90 08/23 172 Resp 18 08/23 1725 Last Documented: Result Date Time Pulse Ox 97 08/23 172 B/P 160/113 08/23 172 B/P Mean 128 08/23 172 O2 Delivery Room air 08/23 172 Temp 36.7 08/23 172 Pulse 90 08/23 172 Resp 18 08/23 172 Review of Vital [...] Result Date Time Pulse Ox 97 08/23 172 B/P 160/113 08/23 172 B/P Mean 128 08/23 1725 O2 Delivery Room air 08/23 1725 Temp 36.7 08/23 1725 Pulse 90 08/23 172 Resp 18 08/23 1725 Last Documented: Result Date Time Pulse Ox 97 08/23 1725 B/P 160/113 08/23 1725 B/P Mean 128 08/23 1725 O2 Delivery Room air 08/23 1725 Temp 36.7 08/23 1725 Pulse 90 08/23 172 Resp 18 08/23 1725 All vital signs available at the time of this entry have been reviewed. Condition Stable Clinical Impression Clinical Impression Primary Impression: COVID-19 Secondary Impressions: Conjunctivitis Disposition Decision Discharge )( Discharged to Home Yes )( Time 191 )( Date 08/23/20 Discharge/Care Plan (Auto) Prescriptions [...] 0825: Patient Discharge Departure Supervising Physician Note MidLv Saw Pt Alone I have reviewed the PA/TANK TRUCK ENGINE MECHANIC's note and plan of care. I was available for consultation as needed at all times during the patient's visit in the emergency department. I agree with the clinical impression, plan and disposition. 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 UNIT #: [id number] ROOM/BED: AGE: 45 SEX: M PCP PHYS: No Primary or Family Physician SERVICE AUTHOR: Bart Oh TANK TRUCK ENGINE MECHANIC * ALL edits or amendments must be [...] Room air 08/23 1725 Temp 36.7 08/23 1725 Pulse 90 08/23 172 Resp 18 08/23 1725 Last Documented: Result Date Time Pulse Ox 97 08/23 172 B/P 160/113 08/23 1725 B/P Mean 128 08/23 1725 O2 Delivery Room air 08/23 1725 Temp 36.7 08/23 1725 Pulse 90 08/23 1725 Resp 18 08/23 1725 Review of Vital Signs Reviewed Focused PE [...] Result Date Time Pulse Ox 97 08/23 172 B/P 160/113 08/23 1725 B/P Mean 128 08/23 1725 O2 Delivery Room air 08/23 1725 Temp 36.7 08/23 1725 Pulse 90 08/23 172 Resp 18 08/23 1725 Last Documented: Result Date Time Pulse Ox 97 08/23 172 B/P 160/113 08/23 1725 B/P Mean 128 08/23 1725 O2 Delivery Room air 08/23 1725 Temp 36.7 08/23 1725 Pulse 90 08/23 172 Resp 18 08/23 1726 All vital signs available at the time of this entry have been reviewed. Condition Stable Clinical Impression Clinical Impression Primary Impression: COVID-19 Secondary Impressions: Conjunctivitis Disposition Decision Discharge )( Discharged to Home Yes )( Time 191 )( Date 08/23/20 Discharge/Care Plan (Auto) Prescriptions [...] Saw Pt Alone I have reviewed the PA/TANK TRUCK ENGINE MECHANIC's note and plan of care. I was available for consultation as needed at all times during the patient's visit in the emergency department. I agree with the clinical impression, plan and disposition. at 1954 at 1017 RPT #:[id number] END OF REPORTHCAMN
[2025-01-11] MEDS ORDERED: KETOROLAC 30 MG/ML INJ ONE (10:25)
--- NOTE | 2025-01-11 10:41 | RAD REPORT ---
EXAMINATION: CT LUMBAR SPINE WITHOUT CONTRAST CLINICAL INDICATION: Fall with back pain TECHNIQUE: Axial CT images were obtained through the lumbar spine in soft tissue and bone windows wit hout intravenous contrast. Coronal and Sagittal reformatted images were created from the data set. One or more of the following dose reduction techniques were used: Automated exposure control, adjustm ent of the mA and/ or kV according to patient size, and/or iterative reconstruction. Unless otherwise specified, incidental findings do not require dedicated imaging follow-up. COMPARISON: No prior exam. FINDINGS: For purposes of this dictation, it is assumed that there are 5 non rib-bearing lumbar type vertebrae, and the most caudal fully segmented lumbar vertebra is labeled L5. No fracture seen No dislocation. Disc bulge L3-4. The sac 7.5. Mild narrowing of foramina bilaterally Disc bulge, ligamentum flavum and facet hypertrophy L4-5. The sac 9.5 mm. Facet hypertrophy L5-S1 mild foraminal stenosis. IMPRESSION: No fracture seen. If the patient continues to have symptoms to suggest acute spinal canal pathology t hen MRI would be recommended Spondylosis L3-4 results in mild to moderate central spinal stenosis
--- NOTE | 2025-01-11 11:41 | EDPHYS ---
Physician Documentation [facility] Name: Power Castillo Age: 49 yrs Sex: Male : 1975 Arrival Date: 01/11/2025 Time: 10:05 Bed 6 Private MD: ED Physician Eva Hanks HPI: 01/11 10:23 This 49 yrs old Male presents to ER via Wheelchair with complaints of Back dr5 Pain. 10:23 The patient presents with pain that is acute, with no known mechanism of injury. The dr5 symptoms are located in the low back. Onset: The symptoms/episode began/occurred 3 day(s) ago. Patient is a 49-year-old male with degenerative disc disease, hypertension, liver fibrosis, neuropathy, osteoarthritis coming in for slip and fall on lower back 3 days ago. Patient reports that he was working outside in the garage and slipped on oil injuring his back. Patient reports that later on he was playing with his dog that weighs approximately 65 pounds with a rope and the dog pulled causing him to twist his back worsening his back pain. Patient reports that he has lower left middle and right back pain all across that he describes as burning and sharp pain. Patient states that he took gabapentin and tramadol yesterday with mild relief. Patient denies taking any medication today. Patient denies fever, bowel or bladder incontinence, bilateral lower leg extremity numbness or tingling.. Historical: - Allergies: 10:13 No Known Allergies; iw - PMHx: 10:12 Degenerative disc disease; Hypertensive disorder; liver fibrosis; neuropathy; iw osteoarthritis; spinal stenosis; - PSHx: 10:12 Cholecystectomy; hernia repair; iw - Immunization history:: Adult Immunizations up to date. - Infectious Disease History:: Denies. - Social history:: Smoking status: Patient denies any tobacco usage or history of. ROS: 10:23 Constitutional: as per hpi dr5 Exam: 10:23 Constitutional: This is a well developed, well nourished patient who is awake, alert, dr5 and in no acute distress. Head/Face: Normocephalic, atraumatic. ENT: Nares patent. No nasal discharge, no septal abnormalities noted. Tympanic membranes are normal and external auditory canals are clear. Oropharynx with no redness, swelling, or masses, exudates, or evidence of obstruction, uvula midline. Mucous membranes moist. Neck: Trachea midline, no thyromegaly or masses palpated, and no cervical lymphadenopathy. Supple, full range of motion without nuchal rigidity, or vertebral point tenderness. No Meningismus. Chest/axilla: Normal chest wall appearance and motion. Nontender with no deformity. No lesions are appreciated. Cardiovascular: Regular rate and rhythm with a normal S1 and S2. Normal PMI, no JVD. No pulse deficits. Respiratory: Lungs have equal breath sounds bilaterally, clear to auscultation. No rales, rhonchi or wheezes noted. No increased work of breathing, no retractions or nasal flaring. Skin: Warm, dry with normal turgor. Normal color with no rashes, no lesions, and no evidence of cellulitis. MS/ Extremity: Pulses equal, no cyanosis. Neurovascular intact. Full, normal range of motion. Neuro: Awake and alert, GCS 15, oriented to person, place, time, and situation. Cranial nerves II-XII grossly intact. Motor strength 5/5 in all extremities. Sensory grossly intact. Cerebellar exam normal. Normal gait. 10:23 Back: pain, that is moderate, of the lumbar area, left low back and right low back, ROM is painful, with rotation to the right, with rotation to the left, Patient reports his back feels better when he is standing, normal spinal alignment noted, CVA tenderness, is absent, Vital Signs: 10:11 BP 121 / 79; Pulse 76; Resp 16; Temp 97.6; Pulse Ox 99% on R/A; Weight 125.19 kg; iw Height 6 ft. 0 in. ; Pain 10/10; 12:24 BP 131 / 75; Pulse 81; Resp 16; Pulse Ox 99% ; bp 10:11 Body Mass Index 37.43 (125.19 kg, 182.88 cm) iw 10:11 Pain Scale: Adult iw MDM: 10:09 Medical Screening Exam initiated dr5 10:25 ED course: Will give patient steroid injection and anti-inflammatories. Will also dr5 obtain CT scan to rule out lumbar fracture. If no fracture, will help relieve pain and prepare patient for discharge.. 11:58 Differential diagnosis: Fatigue Fracture Neoplasm Scoliosis spinal injury, sprain, dr5 vertebral fracture. Data reviewed: vital signs, nurses notes, radiologic studies, CT scan. Consideration of Admission/Observation Escalation of care including admission/observation considered. Admission considered patient found to have fracture on CT scan.. I considered the following discharge prescriptions or medication management in the emergency department I discussed and recommended Over The Counter medications, Medications were administered in the Emergency Department. See MAR. Care significantly affected by the following chronic conditions: Hypertension, degenerative disc disease, osteoarthritis. Care significantly affected by the following Social Determinants of Health: Poor access to healthcare and/or lack of insurance, Poor access to transportation, Problems related to employment. Counseling: I had a detailed discussion with the patient and/or guardian regarding the historical points, exam findings, and any diagnostic results supporting the discharge/admit diagnosis, the presence of at least one elevated blood pressure reading (>120/80) during this emergency department visit, radiology results, the need for outpatient follow up, for definitive care, a family practitioner, a orthopedic surgeon, to return to the emergency department if symptoms worsen or persist or if there are any questions or concerns that arise at home. Medication response: Dexamethasone, Toradol, Dilaudid. Response to treatment: the patient's symptoms have markedly improved after treatment. Special discussion: I discussed with the patient/guardian in detail that at this point there is no indication for admission to the hospital. It is understood, however, that if the symptoms persist or worsen the patient needs to return immediately for re-evaluation. Based on the history and exam findings, there is no indication for further emergent testing or inpatient evaluation. I discussed with the patient/guardian the need to see the orthopedic surgeon for further evaluation of the symptoms. ED course: CT scan was printed and given to [facility]. Patient reports his pain is improved and feeling a little better. Will give patient pain medication and muscle laxer to take at home. Recommended [facility]. All questions answered. Strict ER precautions. 01/11 10:22 Order name: CT Lumbar Spine Wo Con; Complete Time: 10:42 dr5 Administered Medications: 10:50 Drug: Ketorolac IVP 15 mg IVP once Route: IVP; Site: right antecubital; hb 12:23 Follow up: Response: No adverse reaction bp 10:50 Drug: Dexamethasone IVP 10 mg IVP once; (not to exceed 40 mg) Route: IVP; Site: right hb antecubital; 12:23 Follow up: Response: No adverse reaction bp 11:55 Drug: HYDROmorphone IVP 1 mg IVP once Route: IVP; Site: right antecubital; bp 12:23 Follow up: Response: No adverse reaction bp Disposition Summary: 01/11/25 11:40 Discharge Ordered Notes: Location: Home dr5 Condition: Stable dr5 Diagnosis - Low back pain dr5 Followup: dr5 - With: Emergency Department - When: As needed - Reason: Worsening of condition Followup: dr5 - With: Rd Fine MD - When: 1 week - Reason: Recheck today's complaints, Continuance of care, Re-evaluation by your physician Followup: dr5 - With: Gordy Bal MD - When: 1 week - Reason: Recheck today's complaints, Continuance of care, Re-evaluation by your physician Discharge Instructions: - Discharge Summary Sheet dr5 - Acute Back Pain, Adult dr5 Forms: - Medication Reconciliation Form dr5 - Prescription Opioid Use dr5 - Patient Portal Instructions dr5 - Leadership Thank You Letter dr5 Prescriptions: - Ibuprofen 800 mg Oral Tablet - take 1 tablet ORAL route every 12 hours As needed take with food; 20 tablet; dr5 Refills: 0, Product Selection Permitted - Cyclobenzaprine 10 mg Oral Tablet - take 1 tablet ORAL route every 8 hours As needed; 30 tablet; Refills: 0, dr5 Product Selection Permitted - Tramadol 50 mg Oral Tablet - take 1 tablet ORAL route every 8 hours as needed; 12 tablet; Refills: 0, dr5 Product Selection Permitted - Medrol (Star) 4 mg Oral Tablets, Dose Pack - take 1 tablet ORAL route as directed - follow package instructions; 1 packet; dr5 Refills: 0, Product Selection Permitted Signatures: Dispatcher [employer] Dianne Boswell RN RN Yolanda Corona RN RN hb Peltier, Brian, RN RN bp Henrry Souza, MILITARY SCIENCE TEACHER-C MILITARY SCIENCE TEACHER-Cdr5 Corrections: (The following items were deleted from the chart) 10:24 10:23 Patient is a 49-year-old male with degenerative disc disease, hypertension, liver dr5 fibrosis, neuropathy, osteoarthritis coming in for slip and fall on lower back 3 days ago. Patient reports that he was working outside in the garage and slipped on oil injuring his back. Patient reports that later on he was playing with his dog that weighs approximately 65 pounds with a rope and the dog pulled causing him to twist his back worsening his back pain. Patient reports that he has lower left middle and right back pain all across that he describes as burning and sharp pain. Patient states that he took gabapentin and tramadol yesterday with mild relief. Patient denies taking any medication today.. dr5
--- NOTE | 2025-01-11 11:41 | ER ---
Nurse's Notes [facility] Name: Power Castillo Age: 49 yrs Sex: Male : 1975 Arrival Date: 01/11/2025 Time: 10:05 Bed 6 Private MD: Diagnosis: Low back pain Presentation: 01/11 10:11 Chief complaint: Patient states: hx of spinal stenosis and back issues since 2011, he iw slipped and fell in the garage on Friday and now has pain in right lower back , has been taking tramadol, gabapentin and ibuprofen but still hurting. Coronavirus screen: At this time, the client does not indicate any symptoms associated with coronavirus-19. Ebola Screen: No symptoms or risks identified at this time. Initial Sepsis Screen: Does the patient meet any 2 criteria? No. Patient's initial sepsis screen is negative. Does the patient have a suspected source of infection? No. Patient's initial sepsis screen is negative. Risk Assessment: Do you want to hurt yourself or someone else? Patient reports no desire to harm self or others. Onset of symptoms was January 08, 2025. 10:11 Method Of Arrival: Wheelchair iw 10:11 Acuity: JULIA 3 iw Triage Assessment: 10:15 General: Appears in no apparent distress. uncomfortable, Behavior is calm, cooperative, bp appropriate for age. Pain: Complains of pain in lumbar area. EENT: No deficits noted. Neuro: No deficits noted. Cardiovascular: No deficits noted. Respiratory: No deficits noted. GI: No signs and/or symptoms were reported involving the gastrointestinal system. : No signs and/or symptoms were reported regarding the genitourinary system. Derm: No deficits noted. Musculoskeletal: Circulation, motion, and sensation intact. Range of motion: intact in all extremities. Historical: - Allergies: 10:13 No Known Allergies; iw - PMHx: 10:12 Degenerative disc disease; Hypertensive disorder; liver fibrosis; neuropathy; iw osteoarthritis; spinal stenosis; - PSHx: 10:12 Cholecystectomy; hernia repair; iw - Immunization history:: Adult Immunizations up to date. - Infectious Disease History:: Denies. - Social history:: Smoking status: Patient denies any tobacco usage or history of. Screenin:24 [facility] ED Fall Risk Assessment (Adult) History of falling in the last 3 months, bp including since admission No falls in past 3 months (0 pts) Confusion or Disorientation No (0 pts) Intoxicated or Sedated No (0 pts) Impaired Gait No (0 pts) Mobility Assist Device Used No (0 pt) Altered Elimination No (0 pt) Score/Fall Risk Level 0 - 2 = Low Risk Oriented to surroundings. Abuse screen: Denies threats or abuse. Denies injuries from another. Nutritional screening: No deficits noted. Tuberculosis screening: No symptoms or risk factors identified. Assessment: 10:15 General: SEE TRIAGE NOTE. bp 12:24 Reassessment: Patient appears in no apparent distress at this time. Patient is alert, bp oriented x 3, equal unlabored respirations, skin warm/dry/pink. Neuro: Level of Consciousness is awake, alert, obeys commands, Oriented to Appropriate for age Gait is steady. Vital Signs: 10:11 BP 121 / 79; Pulse 76; Resp 16; Temp 97.6; Pulse Ox 99% on R/A; Weight 125.19 kg; iw Height 6 ft. 0 in. ; Pain 10/10; 12:24 BP 131 / 75; Pulse 81; Resp 16; Pulse Ox 99% ; bp 10:11 Body Mass Index 37.43 (125.19 kg, 182.88 cm) iw 10:11 Pain Scale: Adult iw ED Course: 10:07 Patient arrived in ED. im 10:09 Henrry Souza, TENISHA[place] is PHCP. dr5 10:09 Eva Hanks MD is Attending Physician. dr5 10:12 Triage completed. iw 10:13 Arm band placed on Patient placed. iw 10:19 Radhames Burroughs, MARLON is Primary Nurse. bp 10:34 CT Lumbar Spine Wo Con In Process Unspecified. EDMS 10:50 Inserted saline lock: 22 gauge in right antecubital area, using aseptic technique. hb Flushed with 10 mL NS. 11:40 Rd Fine MD is Referral Physician. dr5 11:40 Gordy Bal MD is Referral Physician. dr5 12:24 Patient has correct armband on for positive identification. bp 12:24 No provider procedures requiring assistance completed. IV discontinued, intact, bp bleeding controlled, No redness/swelling at site. Pressure dressing applied. Administered Medications: 10:50 Drug: Ketorolac IVP 15 mg IVP once Route: IVP; Site: right antecubital; hb 12:23 Follow up: Response: No adverse reaction bp 10:50 Drug: Dexamethasone IVP 10 mg IVP once; (not to exceed 40 mg) Route: IVP; Site: right hb antecubital; 12:23 Follow up: Response: No adverse reaction bp 11:55 Drug: HYDROmorphone IVP 1 mg IVP once Route: IVP; Site: right antecubital; bp 12:23 Follow up: Response: No adverse reaction bp Medication: 12:24 VIS not applicable for this client. bp Outcome: 11:40 Discharge ordered by MD. dr5 12:24 Discharged to home ambulatory, with family, bp 12:24 Condition: stable 12:24 Discharge instructions given to patient, Instructed on discharge instructions, follow up and referral plans. medication usage, Demonstrated understanding of instructions, follow-up care, medications, Prescriptions given X 4, 12:26 Patient left the ED. bp Signatures: Dispatcher [employer] EDMS Dianne Burroughs RN RN Yolanda Corona RN RN Radhames Burroughs RN RN Dede Smith Dustin, FIRST ASSISTANT-C FIRST ASSISTANT-Cdr5 Corrections: (The following items were deleted from the chart) 10:13 10:11 Chief complaint: Patient states: hx of spinal stenosis and back issues since 2011, he slipped and fell in the garage on Friday and now has pain in right lower back iw 10:13 10:11 BP 121 / 79; Pulse 76bpm; Resp 16bpm; Pulse Ox 99% RA; Temp 97.6F; iw iw
[2025-01-11] MEDS ORDERED: HYDROMORPHONE HCL 1 MG/ML INJ ONE (11:47)
[2025-01-11 16:25] VITALS: TEMP 97.6; O2SAT 99
[2025-01-11 16:28] VITALS: BP 131/75
== END 2025-01-11 12:26 | disposition home or self-care (01) ==
LOC: ER 10:05
DX: M54.50 Low back pain, unspecified (principal)
CPT/HCPCS: 72131; 96375; 96374; 99284; J1100; J1171